=== PATIENT | male | born 1985 | race Hispanic/Latino ===

== ENCOUNTER 2019-04-25 12:42 | Emergency (ER) | payer MEDICAID, SELFPAY ==
[2019-04-25 12:43] VITALS: BP 129/95; PULSE 105; RESP 19; TEMP 36.9; O2SAT 99; BMI 32.8
--- NOTE | 2019-04-25 13:00 | ED.DCSUM_ITS ---
History of Present Illness Chief Complaint: General Illness Informant: Patient, Significant Other Onset: Yesterday Context: Sudden Onset Timing: Waxes and wanes Quality: Nausea, vomiting and diarrhea with upper abdominal pain and chest pain Location: Upper abdomen and chest Current Severity: Mild Maximum Severity: Moderate Worsened by: Vomiting and diarrhea Relieved by: Nothing Associated Symptoms: Multiple family members ill with diarrhea Narrative: Patient is a 33-year-old male brought to the emergency room room by his because of elevated blood pressure, elevated heart rate with decreased p.o. intake. He has not urinated today. He denies fever or chills. He denies headache. He does report dry mouth and thirst. Chest pain is central. There are no alleviating, exacerbating or precipitant factors. He did have nasal congestion last evening. He denies cough or shortness of breath. He denies hematemesis, no hematochezia. He denies mucus in the stool. He denies skin lesions. He complained of generalized weakness. Prior similar symptoms: No Recent Illness/Hospitalization: No - Past Medical History (1) History of brain tumor Status: Acute Past Medical History - Allergies and Home Meds Allergies/Adverse Reactions: Allergies No Known Allergies Allergy (Verified 04/25/19 12:42) Primary Care Physician: [facility] Doctor,Out of [NON-STAFF] - Prior records reviewed: Yes Surgical History: - - Craniotomy x2 Lives: Spouse/ Significant Other, With Family Smoking Status: Never smoker Alcohol: Occasional Drugs: None Review of Systems General: Reports: Chills, Malaise. Denies: Fever, Subjective, Sweats, Weight loss Eyes: Reports: - - Nystagmus since craniotomy. Denies: Visual changes - bilaterally, Blurred Vision - bilaterally, Diplopia ENT: Reports: Rhinorrhea. Denies: Bilateral ear pain, Sore throat Cardiovascular: Reports: Chest pain. Denies: Palpitations Respiratory: Denies: Dyspnea, Cough, Dyspnea on exertion Gastrointestinal: Reports: Abdominal pain, Nausea, Vomiting, Diarrhea. Denies: Constipation, Melena, Hematochezia Genitourinary: Denies: Dysuria, Hematuria, Frequency Musculoskeletal: Denies: Myalgias, Arthralgias, Neck pain, Back pain, Swelling, Extremity Pain, -, - Neurological: Reports: Weakness. Denies: Headache, Parasthesia, Numbness Hematologic: Denies: Easy bruising, Easy bleeding Allergy: Denies: Uticaria, Swelling of the mouth, Swelling of the tongue Physical Exam Vital Signs/Narrative: Vital Signs Temp Pulse Resp BP Pulse Ox 04/25/19 12:43 98.5 F 105 H 19 H 129/95 H 99 Inital Vital Signs reviewed: Yes General: Well nourished, Well developed, No Acute Distress Head: Normocephalic, Atraumatic Eyes: Perrl, EOMI, - - Positive nystagmus. Negative for: Pale conjunctiva, Scleral icterus ENT: Moist mucous membranes - She did just drink water prior to arrival., No rhinorrhea Neck: Supple, Nontender, No lymphadenopathy, No JVD Cardiovascular: Regular rhythm, No murmurs, Normal S1, Normal S2, Tachycardia Respiratory: No distress, CTA bilaterally, Chest nontender Abdomen: Soft, Normal bowel sounds, Tender. Negative for: Guarding, Rebound ten derness, Hyperactive bowel sounds, Hypoactive bowel sounds, Hepatomegaly, Splenomegaly, Mass Rectal: Deferred Back: Nontender, Normal Inspection. Negative for: CVA tenderness Extremities: Nontender, No edema Skin: Normal color, No rash Neurological: Alert, Oriented x3, Cranial nerves II-XII grossly intact, Normal Strength, Normal Sensation Psychological: Normal affect, Normal Mood Diagnostic/Tx/Re-eval Laboratory Results 04/25/19 04/25/19 13:30 13:30 WBC 8.3 RBC 5.34 Hgb 15.8 Hct 43.2 MCV 80.9 MCH 29.6 MCHC 36.6 H RDW 12.5 RDW Differential 36.7 Plt Count 220 MPV 10.4 Immature Gran % (Auto) 0.400 Neut % (Auto) 82.3 H Lymph % (Auto) 11.5 L [place] % (Auto) 5.0 Eos % (Auto) 0.4 Baso % (Auto) 0.4 Absolute Neuts (auto) 6.9 Absolute Lymphs (auto) 0.96 Total Counted Not Reportable Sodium 138 Potassium 3.5 Chloride 104 Carbon Dioxide 27.0 Anion Gap 7 BUN 12 Creatinine 0.92 Estim Creat Clear Calc 91.91 Est GFR (MDRD) Af Amer 121 Est GFR (MDRD) Non-Af 100 BUN/Creatinine Ratio 13.0 Glucose 121 H Calcium 8.9 - Medical Decision Making Patient has reproducible chest pain. He has epigastric discomfort as well. Suspect this is secondary to viral illness with vomiting diarrhea. Since he has not urinated the entire day IV was established he was given 1 L of normal saline wide open. Will obtain baseline blood work as well to assess electrolyte, renal function and H&H. Patient was reassessed at 1450. He sitting up smiling feels much better. Will discharge home with appropriate home-going instructions ED Disposition - Plan for ED Patient: Disposition: Home or Assisted Living Diagnosis: Abdominal pain, vomiting, and diarrhea, Mild dehydration Instructions: VOMITING AND DIARRHEA, Nonspecific (Adult) Referrals: [facility] Doctor,Out of [NON-STAFF] - As Needed
[2019-04-25] MEDS: 0.9% Normal Saline 1,000 ML 1000 ML IV (13:56)
[2019-04-25 14:11] LABS: Anion Gap 7 (5-15); BUN 12 mg/dL (7-18); Calcium,Total 8.9 mg/dL (8.5-10.1); Chloride 104 mmol/L (98-107); Creatinine, Serum 0.92 mg/dL (0.70-1.30); EST Glomerular Filtration Rate 100 mL/min (>60); Est Glom Filt Rate - Afr Amer 121 mL/min (>60); Estimated Creatinine Clearance 91.91 ml/min; Glucose 121 mg/dL (74-106); Potassium 3.5 mmol/L (3.5-5.1); Sodium Level 138 mmol/L (136-145)
[2019-04-25 14:24] LABS: Absolute Lymphocyte Count 0.96 X10^3/ul (0.83-4.51); Absolute Neutrophil Count 6.9 X10^3/uL (2.0-7.7); Basophil# 0.03 X10^3/uL; Basophil% 0.4 % (0-1); Eosinophil# 0.03 X10^3/uL; Eosinophils% 0.4 % (0-5); Hematocrit 43.2 % (40-54); Lymphocyte # 0.96 X10^3/ul (4.0); Lymphocyte % 11.5 % (19-41); Mean Corpuscular Volume 80.9 fL (80-94); Mean Platelet Vol. 10.4 fl (6.2-12.0); Monocyte# 0.42 X10^3/uL; Neutrophil # 6.85 X10^3/uL (2.7-7.7); Neutrophil % 82.3 % (47-70); POSITIVE COUNT NO; POSITIVE DIFFERENTIAL NO; POSITIVE MORPHOLOGY NO; Platelet Count 220 K/mm3 (150-450); RBC Distribution Width CV 12.5 % (11.6-14.6); RBC Distribution Width SD 36.7 fl (35.1-43.9); Red Blood Count 5.34 M/mm3 (4.6-6.2); White Blood Count 8.3 K/mm3 (4.4-11.0)
[2019-04-25 14:25] LABS: Hemoglobin 15.8 g/dl (13.0-16.5); Mean Corp Hgb Conc 36.6 g/gl (32-36); Mean Corpuscular Hgb 29.6 pg (27.0-32.0)
--- NOTE | 2019-04-25 15:12 | ED.RN ---
IV DC'ED, CATHETER INTACT, SMALL GAUZE DRESSING PLACED. DISCHARGE INSTRUCTIONS GIVEN TO AND REVIEWED WITH PATIENT, PATIENT DENIES QUESTIONS OR CONCERNS AND VOICES UNDERSTANDING OF DISCHARGE INSTRUCTIONS. PT AMBULATES OUT OF ROOM WITHOUT DIFFICULTY.
== END 2019-04-25 15:14 | disposition home or self-care (01) ==
PROVIDERS: Emergency Provider Emergency Medicine; Family Provider Internal Medicine; PCP Internal Medicine
DX: E86.0 Dehydration (principal); R19.7 Diarrhea, unspecified; R11.2 Nausea with vomiting, unspecified; R10.13 Epigastric pain
CPT/HCPCS: 80048; 85025; 96360; 99281; 99282; J7030; A4216

== ENCOUNTER 2023-11-13 16:42 | Emergency (ER) | payer MEDICAID, SELFPAY ==
[2023-11-13] VITALS (7 sets, daily range): BP systolic 142–186; BP diastolic 85–96; PULSE 115–141; RESP 16–25; TEMP 37–37.7; O2SAT 96–100; BMI 32.9
--- NOTE | 2023-11-13 17:11 | CT_ITS ---
EXAM: CT HEAD WITHOUT INTRAVENOUS CONTRAST CLINICAL INDICATION: headache S/P Craniotomy TECHNIQUE: Multiple axial images were obtained of the head without intravenous contrast. This CT exam was performed using one or more of the following dose reduction techniques: automated exposure control, adjustment of the mA and/or kV according to patient size, and/or use of iterative reconstruction technique. RADIATION DOSE: CTDIvol = 44.99 mGy, DLP = 796.11 mGy-cm COMPARISON: 2.4.15 FINDINGS: BRAIN AND EXTRA-AXIAL SPACES: See below. BONES/JOINTS: Right parietal occipital craniotomy. Underlying the area of the craniotomy, there is encephalomalacia consistent for postsurgical changes. No discrete lytic or blastic abnormalities. SINUSES: Unremarkable as visualized. Clear. MASTOID AIR CELLS: Unremarkable. Clear. ORBITS: Visualized globes, extraocular muscles, optic nerves and retrobulbar fat appear unremarkable. CT/Brain/Head without Contrast IMPRESSION: No acute findings in the head/brain. Electronically Signed: Mike Chan MD at 17:47 EST ,
--- NOTE | 2023-11-13 17:13 | EDS_ITS ---
HPI History of Present Illness Chief Complaint: Fever Informant: patient and spouse/S.O. Narrative Narrative: 38-year-old male presenting to the emergency room with headache and fever. 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 Currently seeing Dr. Louie at [facility]. He underwent craniotomy now postop day 19. He returned home October 27. He was having significant frontal occipital pain that was requiring oxycodone and eventually Flexeril. Family states around 06 November he was back to only taking Tylenol. Last night developed worsening headache as well as some mild diarrhea. Continued again today. states he had Tmax 102 at home. She last administered Tylenol approximately 1 hour before arrival. On the way to the hospital he stated that he began to feel better. However since coming into the hospital he is feeling nauseated. He notes wavy lines in his field of vision and believes he is hearing sounds to the side of him. He notes it does not bother his head or neck to move his head. He denies any light sensitivity. Family notes no rashes. No cough or rhinorrhea. states that he had had 1 prior seizure around the time of initial diagnosis since. [facility] Medical History (Updated 11/13/23 @ 17:[address] Ben Bright, ) Oligoastrocytoma Home Medications levetiracetam 1,000 mg tablet 1,000 mg PO Q12H 11/20/14 [History Last Taken 06/21/17] prednisone 10 mg tablet 10 mg PO UD #33 tabs 06/21/17 [Rx Last Taken Unknown] prednisone 20 mg tablet 60 mg (3 x 20 mg) PO DAILY ##15 06/21/17 [Rx Last Taken Unknown] Allergy/AdvReac Type Severity Reaction Status Date / Time No Known Allergies Allergy Verified 11/13/23 16:46 Surgical History (Updated 11/13/23 @ 17:01 by Dimple Mayer) H/O craniotomy Social History Smoking Status: Former smoker ROS ROS ED Constitutional Constitutional ED: Reports chills and fever(s); Denies weight loss Eyes Eyes: Reports change in vision and other Details: Visual disturbance reportedly in both eyes and vision lui ; Denies diplopia ENT ENT ED: Denies ear pain, rhinorrhea or sore throat Cardiovascular Cardiovascular: Denies chest pain, orthopnea, palpitations or racing heartbeat Respiratory/Chest Respiratory/Chest: Denies cough, dyspnea or orthopnea Gastrointestinal Gastrointestinal: Reports diarrhea and nausea; Denies abdominal pain or vomiting Genitourinary Genitourinary ED: Denies dysuria, hematuria or urinary frequency Musculoskeletal Musculoskeletal: Denies arthralgias, myalgias or neck pain Integumentary Denies abscess or rash Neurologic Neurologic: Reports headache(s); Denies paresthesias or weakness Psychiatric Psychiatric: Denies anxiety, depression, suicidal ideation or suicidal thoughts Endocrine Endocrinology: Denies polydipsia, polyphagia or polyuria Allergic/Immunologic Allergic/Immunologic ED: Denies mouth swelling, tongue swelling or urticaria EXAM Physical Exam Narrative Exam Narrative: Patient appears uncomfortable in the bed holding his head. Const Vital Signs: 11/13/23 16:46 11/13/23 16:57 11/13/23 16:57 Temperature 98.9 F 99.3 F H Temperature Source Temporal Oral Pulse Rate 134 H Respiratory Rate 24 H Respiratory Pattern Normal Blood Pressure 169/96 H Blood Pressure Mean 120 Pulse Ox 100 Oxygen Delivery Method Room Air Oxygen Flow Rate (L/min) Fraction of Inspired Oxygen (FIO2) 11/13/23 18:05 11/13/23 18:43 11/13/23 18:25 Temperature 98.6 F Temperature Source Core Pulse Rate 141 H 130 H 123 H Respiratory Rate 24 H 25 H 20 H Respiratory Pattern Normal Blood Pressure 164/95 H Blood Pressure Mean 118 Pulse Ox 98 96 99 Oxygen Delivery Method Non-Rebreather Mechanical Ventilator Oxygen Flow Rate (L/min) 15 Fraction of Inspired Oxygen (FIO2) 30 100 11/13/23 19:24 Temperature Temperature Source Pulse Rate 115 H Respiratory Rate 22 H Respiratory Pattern Blood Pressure 186/85 H Blood Pressure Mean 118 Pulse Ox 99 Oxygen Delivery Method Mechanical Ventilator Oxygen Flow Rate (L/min) Fraction of Inspired Oxygen (FIO2) 30 Positive well nourished and well developed General Appearance ED: well developed HEENT Reports normocephalic and moist mucous membranes HEENT Narrative: Healing right parietal craniotomy incision. I do not appreciate a rash or swelling. Eyes PERRL and EOMs intact bilaterally Neck no lymphadenopathy, supple and no JVD Neck Narrative: No meningeal signs Resp normal respiratory effort and clear to auscultation bilaterally Cardio regular rate, regular rhythm and no murmurs Rate: tachycardic GI normal to inspection, nondistended, normoactive bowel sounds and non-tender Palpation: soft Back/Spine no CVA tenderness and normal ROM Extremity normal to inspection General Extremety ED: Negative for edema General Extremity: Negative for edema Neuro oriented x3 and CN's II-XII intact bilaterally Sensorium / Orientation: alert Motor Exam: strength 5/5 throughout Psych mental status grossly normal Mood & Affect: Negative for depressed or tearful Skin no rashes or lesions noted and no wounds MDM MDM MDM Narrative Medical decision making narrative: Shortly after my history and physical the patient began to have discharge. He is seizure resolving the left side of his body. Head was turned to the left with tonic-clonic like movement, left arm with tonic-clonic movements patient said minimal left leg movements. Right side did not seem involved. This terminated on its own before Ativan was given. Total seizure length of about 3 minutes. I come to the patient down to CT where he began to seize again. He received an additional 2 mg of Ativan. He still had some partial complex seizures and I was able to speak with me a little bit. At the end of CT he had significant amount more of seizure. He received an additional 2 mg of Ativan. This totaled 5. He was still seizing but eventually the seizure activity started to break. Unfortunately after 5 mg of Ativan he was very somnolent began to have snoring respirations requiring supplemental oxygen. I spoke with the patient's and strongly recommended intubation especially in light that he will be a ground transfer to [place]. She is in agreement for the patient's safety. He underwent rapid sequence intubation using etomidate and vecuronium. Ralph scope showed passage of the endotracheal tube without any difficulty. There were equal breath sounds bilaterally. Unfortunately I did not feel confident that the balloon was inflating as I heard some gurgling with bagged respirat ions. I changed out the endotracheal tube and inflated the balloon and no further gurgling respirations were heard. It was to be secured at 24. My independent interpretation of the chest x-ray showed it to be near the leda. I do not appreciate infiltrative changes. I checked the tube and it was secured at 26 and had it pulled back to 24 again. He was placed on propofol drip. Later fentanyl was added for further sedation. He received antibiotics in the form of vancomycin and meropenem. A total of 1500 mg of Keppra was given. He received NM acetaminophen. During all of the above, I spoke with [facility] transfer center and with the patient's neurosurgeon Dr. Louie. He has been accepted there. RSV influenza and COVID swabs were negative. Blood and urine cultures were obtained. Labs are reviewed and are significant for a white count of 14.1. History & Record Review Discussion w/independent historian: Patient and Family Lab Data Attestation: I reviewed the patient's lab results. Labs: Laboratory Results - last 24 hr 11/13/23 11/13/23 11/13/23 17:25 18:10 20:17 WBC 14.1 H RBC 5.16 Hgb 15.7 Hct 45.5 MCV 88.2 MCH 30.4 MCHC 34.5 RDW Std Deviation 38.0 RDW Coeff of Elicia 11.8 Plt Count 315 MPV 9.7 Immature Gran % (Auto) 0.900 Neut % (Auto) 62.1 Lymph % (Auto) 24.1 [place] % (Auto) 10.1 H Eos % (Auto) 1.8 Baso % (Auto) 1.0 Absolute Neuts (auto) 8.8 H Absolute Lymphs (auto) 3.40 Nucleated RBC % 0 PT 11.8 INR 0.9 APTT 27.6 Sodium 138 Potassium 3.9 Chloride 105 Carbon Dioxide 28.0 Anion Gap 5 BUN 14 Creatinine 0.98 Estim Creat Clear Calc 108.89 Est GFR (MDRD) Af Amer 110 Est GFR (MDRD) Non-Af 91 BUN/Creatinine Ratio 14.3 Glucose 129 H Lactic Acid 1.9 Calcium 9.4 Total Bilirubin 0.70 Direct Bilirubin 0.16 AST 23 ALT 96 H Alkaline Phosphatase 90 Total Creatine Kinase 58 Total Protein 7.7 Albumin 4.2 Globulin 3.5 Triglycerides 341 H Lipase 57 Urine Color Yellow Urine Clarity Clear Urine pH 5.0 Ur Specific [place] 1.025 Urine Protein 15 H Urine Glucose (UA) Normal Urine Ketones Negative Urine Occult Blood Negative Urine Nitrite Negative Urine Bilirubin Negative Urine Urobilinogen Normal Ur Leukocyte Esterase Negative Urine RBC 0 SEEN Urine WBC 0 SEEN Ur Squamous Epith Cells 0-5 SEEN Urine Bacteria 0 SEEN Urine Mucus 0 SEEN POC Glucose 103 Radiography Diagnostic Testing: Clinical Impression(s) from Imaging Studies Brain CT 11/13/23 17:11 IMPRESSION: No acute findings in the head/brain. Electronically Signed: Mike Chan MD at 17:47 EST , Chest X-Ray 11/13/23 17:35 IMPRESSION: No radiographic evidence of acute cardiopulmonary disease. Electronically Signed: Mike Chan MD at 17:53 EST , Chest X-Ray 11/13/23 18:35 IMPRESSION: ET tube is 11 mm above the leda. It should be pulled back by 26 mm. Electronically Signed: Mike Chan MD at 18:50 EST , EKG Initial EKG: Attestation: I personally reviewed and interpreted this EKG as follows: Comments: Sinus tachycardia ventricular rate of 135 bpm. Management Discussion w/another healthcare provider: Seasonal Package Handler ([facility] (Dr Louie) [facility] Transfer line) and Radiologist Critical Care Time Critical Care Time: Yes Critical care time (excluding procedures): 30-74 minutes (65 min), Including time spent:, Discussing w/Patient &/or Family/Blood Donor Recruiter Supervisor, Discussing w/Consultants, Arranging Admission or Transfer and Performing Direct Patient Care at Bedside Discharge Plan Triage Chief Complaint: Fever ED Provider: Ben Bright Dx/Rx/DC Orders Prescriptions: No Action levetiracetam 1,000 MG tablet 1,000 mg PO Q12H prednisone 10 MG tablet 10 mg PO UD Qty: 33 0RF Rx Instructions: Take 4 tablets daily for 3 days, then 3 daily for 3 days, then 2 daily for 3 days, then 1 a day for 3 days then 1 QOD for 3 doses. prednisone 20 MG tablet 60 mg PO DAILY Qty: 15 0RF Primary Care Provider: Sonja Davenport Referrals: Sonja Davenport, [Primary Care Provider] -
--- OUTSIDE RECORDS SUMMARY | 2023-11-13 17:18 | XMS RPT_ITS | CCD ---
Author Name Unknown Address [address] [place] [address] Organization [facility] Care Team Providers Care Circular Head Saw Operator Name Role Phone Nithin Davenport Attending Unavailable Oberhauser, Nithin De Paz Admitting Unavailable Oberhauser, Nithin De Paz Primary Care Unavailable Oberhauser, Nithin De Paz Attending Unavailable Oberhauser, Nithin De Paz Primary Care Unavailable BitnerKiel Admitting Unavailable BitnerKiel Attending Unavailable OberhauserNithin Primary Care Unavailable BitKiel diaz Admitting Unavailable BitnerKiel Attending Unavailable Oberhauser, Nithin De Paz Primary Care Unavailable Liu Mao Admitting Unavailable MaoLiu Attending Unavailable Oberhauser, Nithin De Paz Primary Care Unavailable MaoLiu barron Attending Unavailable OberhauserNithin Primary Care Unavailable Liu Mao Admitting Unavailable Oberhauser, Nithin De Paz Admitting Unavailable Oberhauser, Nithin De Paz Attending Unavailable OberhauserNithin Primary Care Unavailable Liu Mao Admitting Unavailable MaoLiu barron Attending Unavailable OberhauserNithin Primary Care Unavailable Liu Mao Attending Unavailable OberhauserNithin Primary Care Unavailable Oberhauser DO Nithin Primary Care Provider Oberhausruddy CHAPA Nithin Primary Care Provider Cherie Santamaria MD Unavailable OberNithin bradley DO Primary Care Provider [phone] Cherie Santamaria MD Unavailable OberhausNithin fox DO Primary Care Provider [phone] Jaziel Urban MD Unavailable MUELLER, ELEANOR R Referring Unavailable MUELLERELEANOR DIAZ R Attending Unavailable OBERHAUSER, NITHIN Primary Care Unavailable MUELLERELEANOR DIAZ R Attending Unavailable OLIVIA, JOE B Referring Unavailable OBERHAUSER, NITHIN Primary Care Unavailable OBERHAUSER, NITHIN Primary Care Unavailable MUELLERELEANOR DIAZ R Attending Unavailable OLIVIA, JOE B Referring Unavailable OLIVIA, JOE B Attending Unavailable OBERHAUSER, NITHIN Primary Care Unavailable TERRELL, JAZIEL Referring Unavailable OLIVIA, JOE B Referring Unavailable OBERHAUSER, NITHIN Primary Care Unavailable CHERIE SANTAMARIA Attending Unavailable OBERHAUSER, NITHIN Referring Unavailable OBERHAUSER, NITHIN Primary Care Unavailable CHERIE SANTAMARIA Attending Unavailable CHERIE SANTAMARIA Admitting Unavailable CONSULT, NEURO CRITICAL CARE Consulting Jenna sukhdevilaIVIS Pizarro Referring Unavailable OBERHAUSER, NITHIN Primary Care Unavailable OBERHAUSER, NITIHN Primary Care Unavailable TERRELL, JAZIEL Referring Unavailable TERRELL, JAZIEL Attending Unavailable OBERHAUSER, NITHIN Primary Care Unavailable OBERHAUSER, NITHIN Referring Unavailable OBERHAUSER, NITHIN Primary Care Unavailable TERRELL, JAZIEL Referring Unavailable TERRELL, JAZIEL Attending Unavailable OBERHAUSER, NITHIN Primary Care Unavailable DIAZ, NITHIN S Attending Unavailable DIAZ, NITHIN S Referring Unavailable OBERHAUSER, NITHIN Primary Care Unavailable OBERHAUSER, NITHIN Referring Unavailable CHERIE SANTAMARIA Attending Unavailable OBERHAUSER, NITHIN Primary Care Unavailable DIAZ, NITHIN S Attending Unavailable DIAZ, NITHIN S Referring Unavailable OBERHAUSER, NITHIN Primary Care Unavailable OBERHAUSER, NITHIN Referring Unavailable TERRELL, JAZIEL Attending Unavailable OBERHAUSER, NITHIN Primary Care Unavailable TERRELL, JAZIEL Attending Unavailable OBERHAUSER, NITHIN Referring Unavailable OBERHAUSER, NITHIN Primary Care Unavailable CHERIE SANTAMARIA Attending Unavailable OBERHAUSER, NITHIN Referring Unavailable OBERHAUSER, NITHIN Primary Care Unavailable DIAZ, NITHIN S Referring Unavailable DIAZ, NITHIN S Attending Unavailable Medications Current Medications Medication Drug Class(es) Dates Sig (Normalized) Sig (Original) acetaminophen 325 mg oral tablet (2 sources) Start: 10-27-2023 take 2 tablets by mouth every four hours as needed Acetaminophen 325 MG tablet Take 2 tablets by mouth every 4 hours as needed for Mild Pain. 0 10/27/2023 Active Completed/Discontinued Medications Medication Drug Class(es) Dates Sig (Normalized) Sig (Original) ceFAZolin 2000 mg injection (1 source) Cephalosporin Antibacterial Start: 10-25-2023 End: 10-26-2023 take 2 g intravenously every eight hours 2 g, Intravenous, Administer over 30 Minutes, EVERY 8 HOURS NON-STANDARD, 3 doses, First dose on Tue10/25/23 at 1830, Last dose on Tue10/26/23 at 1030, Post-op/Post-Pro c Docusate (1 source) Start: 10-25-2023 End: 10-27-2023 Docusate (COLACE) capsule 100 mg 0.4 ml enoxaparin sodium 100 mg/ml prefilled syringe (1 source) Low Molecular Weight Heparin Start: 10-26-2023 End: 10-27-2023 inject 40 mg by subcutaneous injection every twenty-four hours 40 mg, Subcutaneous, EVERY 24 HOURS, First dose on Tue10/26/23 at 1200, Until Discontinued, Indications: DVT/PE prophylaxis, Post-op/Post-Pro c gadoterate Meglumine (DOTAREM) 5 MMOL/10ML injection 3-60 mL (2 sources) Start: 09-30-2022 End: 09-30-2022 gadoterate Meglumine (DOTAREM) 5 MMOL/10ML injection 3-60 mL Problems Active Problems Problem Classification Problem Date Documented Date Episodic/Chronic Cancer of brain and nervous system (19 sources) Mixed glioma ; 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, unspecified] Onset: 06-29-2016 Chronic Neoplasms of unspecified nature or uncertain behavior (3 sources) Neoplasm of brain; Translations: [Neoplasm of unspecified behavior of brain] Onset: 10-25-2023 10-25-2023 Chronic Other aftercare (2 sources) Postoperative visit; Translations: [Encounter for other specified surgical aftercare] Onset: 10-25-2023 10-25-2023 Episodic Other eye disorders (3 sources) Congenital nystagmus; 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] Onset: 10-13-2023 10-13-2023 Chronic Other eye disorders (1 source) Congenital nystagmus; 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] Onset: 12-28-2023 Chronic Other nervous system disorders (9 sources) Cerebral edema; Translations: [Cerebral edema] Onset: 09-01-2016 09-01-2016 Chronic Residual codes; unclassified (12 sources) History of craniotomy; Translations: [Other specified postprocedural states] Onset: 09-01-2016 09-01-2016 Episodic Residual codes; unclassified (2 sources) Other specified postprocedural states; Translations: [Other specified postprocedural states] Onset: 10-25-2023 Episodic Residual codes; unclassified (2 sources) Other specified health status; Translations: [Other specified health status] Onset: 10-21-2023 Episodic Past or Other Problems Problem Classification Problem Date Documented Da te Episodic/Chronic Epilepsy; convulsions (9 sources) Seizure; Translations: [Unspecified convulsions] Onset: 06-29-2016 06-29-2016 Episodic Mood disorders (5 sources) Mood disorders Onset: 03-31-2023 03-31-2023 Results Test Name Value Interpretation Reference Range Facil ity Vital Signs Date Time Vital Sign Value Performing Clinician Faci lity 10-27-2023 11:54-0500 Body temperature 97.2 [degF] Cherie Santamaria MD Work Phone: [facility] 10-27-2023 11:54-0500 Diastolic blood pressure 59 mm[Hg] Cherie Santamaria MD Work Phone: [facility] 10-27-2023 11:54-0500 Heart rate 72 /min Cherie Santamaria MD Work Phone: [facility] 10-27-2023 11:54-0500 Respiratory rate 16 /min Cherie Santamaria MD Work Phone: [facility] 10-27-2023 11:54-0500 SaO2% (BldA) [Mass fraction] 98 % Cherie Santamaria MD Work Phone: [facility] 10-27-2023 11:54-0500 Systolic blood pressure 124 mm[Hg] Cherie Santamaria MD Work Phone: [facility] 10-25-2023 11:36-0500 Body height 160 cm Cherie Santamaria MD Work Phone: [facility] 10-25-2023 11:36-0500 Body mass index (BMI) [Ratio] 35.46 kg/m2 Cherie Santamaria MD Work Phone: [facility] 10-25-2023 11:36-0500 Body weight 90.8 kg Cherie Santamaria MD Work Phone: [facility] 10-13-2023 14:09-0500 Body height 160 cm Eleanor Mueller DO Work Phone: [facility] 10-13-2023 14:09-0500 Body mass index (BMI) [Ratio] 35.78 kg/m2 Eleanor Mueller DO Work Phone: [facility] 10-13-2023 14:09-0500 Body temperature 97.3 [degF] Eleanor Mueller DO Work Phone: [facility] 10-13-2023 14:09-0500 Body weight 91.63 kg Eleanor Mueller DO Work Phone: [facility] 10-13-2023 14:09-0500 Diastolic blood pressure 78 mm[Hg] Eleanor Mueller DO Work Phone: [facility] 10-13-2023 14:09-0500 Heart rate 75 /min Eleanor Mueller DO Work Phone: [facility] 10-13-2023 14:09-0500 Respiratory rate 16 /min Eleanor Mueller DO Work Phone: [facility] 10-13-2023 14:09-0500 SaO2% (BldA) [Mass fraction] 98 % Eleanor Mueller DO Work Phone: [facility] 10-13-2023 14:09-0500 Systolic blood pressure 120 mm[Hg] Eleanor Mueller DO Work Phone: [facility] 03-31-2023 09:45-0400 Body mass index (BMI) [Ratio] 33.88 kg/m2 Cherie Santamaria MD Work Phone: [facility] 03-31-2023 09:45-0400 Body temperature 97.59 [degF] Cherie Santamaria MD Work Phone: [facility] 03-31-2023 09:45-0400 Body weight 89.54 kg Cherie Santamaria MD Work Phone: [facility] 03-31-2023 09:45-0400 Diastolic blood pressure 75 mm[Hg] Cherie Santamaria MD Work Phone: [facility] 03-31-2023 09:45-0400 Heart rate 68 /min Cherie Santamaria MD Work Phone: [facility] 03-31-2023 09:45-0400 Respiratory rate 16 /min Cherie Santamaria MD Work Phone: [facility] 03-31-2023 09:45-0400 SaO2% (BldA) [Mass fraction] 98 % Cherie Santamaria MD Work Phone: [facility] 03-31-2023 09:45-0400 Systolic blood pressure 114 mm[Hg] Cherie Santamaria MD Work Phone: [facility] 09-30-2022 13:07-0500 Body height 160 cm Jaziel Urban MD Work Phone: [facility] 09-30-2022 13:07-0500 Body mass index (BMI) [Ratio] 34.2 kg/m2 Jaziel Urban MD Work Phone: [facility] 09-30-2022 13:07-0500 Body temperature 98.49 [degF] Jaziel Urban MD Work Phone: [facility] 09-30-2022 13:07-0500 Body weight 87.54 kg Jaziel Urban MD Work Phone: [facility] 09-30-2022 13:07-0500 Diastolic blood pressure 81 mm[Hg] Jaziel Urban MD Work Phone: [facility] 09-30-2022 13:07-0500 Heart rate 79 /min Jaziel Urban MD Work Phone: [facility] 09-30-2022 13:07-0500 Respiratory rate 16 /min Jaziel Urban MD Work Phone: [facility] 09-30-2022 13:07-0500 SaO2% (BldA) [Mass fraction] 97 % Jaziel Urban MD Work Phone: [facility] 09-30-2022 13:07-0500 Systolic blood pressure 135 mm[Hg] Jaziel Urban MD Work Phone: [facility] 09-30-2022 11:48-0500 Body height 160 cm Jaziel Urban MD Work Phone: [facility] 09-30-2022 11:48-0500 Diastolic blood pressure 85 mm[Hg] Jaziel Urban MD Work Phone: [facility] 09-30-2022 11:48-0500 Heart rate 98 /min Jaziel Urban MD Work Phone: [facility] 09-30-2022 11:48-0500 Systolic blood pressure 150 mm[Hg] Jaziel Urban MD Work Phone: [facility] 01-07-2022 12:31-0400 Body height 162.6 cm Jaziel Urban MD Work Phone: [facility] 01-07-2022 12:31-0400 Diastolic blood pressure 87 mm[Hg] Jaziel Urban MD Work Phone: [facility] 01-07-2022 12:31-0400 Systolic blood pressure 125 mm[Hg] Jaziel Urban MD Work Phone: [facility] Encounters Encounter Date Encounter Type Care Provider Facility Start: 10-25-2023 End: 10-27-2023 Evaluation and management of inpatient NITHIN DAVENPORT Facility:[facility] Start: 10-25-2023 End: 10-27-2023 Evaluation and management of inpatient Cherie Santamaria MD Work Phone: [id number] Procedures Date Procedure Procedure Detail Performing Clinician Start: 10-27-2023 Assay of magnesium Nase rin M Nitin PLUMBER GASFITTER-METER SUPERVISOR Work Phone: Start: 10-26-2023 Assay of magnesium Nase rin M Nitin PLUMBER GASFITTER-METER SUPERVISOR Work Phone: Start: 10-25-2023 Glucose measurement, blood Cherie Santamaria MD Work Phone: Start: 10-25-2023 Mri brain open intra cranial px w/o contrast matl Cherie Santamaria MD Work Phone: Start: 10-25-2023 CONTINUOUS CARDIAC M ONITORING STRIP Other Other Start: 10-25-2023 Ct head/brain w/o co ntrast material Tan Booker MD Work Phone: Start: 10-25-2023 Glucose measurement, blood Cherie Santamaria MD Work Phone: Start: 10-25-2023 US Unspecified body region Cherie Santamaria MD Work Phone: Start: 10-25-2023 CONTINUOUS CARDIAC M ONITORING STRIP Other Other Start: 10-25-2023 End: 10-25-2023 Craniotomy excision craniopharyngioma Cherie Santamaria MD Work Phone: Start: 10-25-2023 End: 10-25-2023 Ionm 1 on 1 in or w/attendance each 15 minutes Cherie Santamaria MD Work Phone: Start: 10-25-2023 End: 01-09-2024 Mri brain open intracranial px w/o & w/contrast Cherie Santamaria MD Work Phone: Start: 10-25-2023 Blood typing serologic abo Kelvin Davis MD Work Phone: Start: 10-13-2023 Antibody screen Eleanor Mueller DO Work Phone: Start: 10-13-2023 Antibody screen ELEANOR MUELLER Plan of Treatment Date Care Activity Detail Author Start: 11-17-2023 End: 11-17-2023 Patient encounter procedure Division of [facility] at [facility] Start: 11-08-2023 End: 11-08-2023 Patient encounter procedure 11/08/2023 11:00 AM EST Office Visit Department of Radiation Oncology [address] [place] [address] Baldomero Vieira MD, DPhil [address] [place] [address] Department of Radiation Oncology Start: 10-25-2023 End: 10-25-2023 Craniotomy excision craniopharyngioma EXCISION BRAIN TUMOR BY CRANIOTOMY Brain tumor 10/25/2023 7:00 AM EST [facility] Start: 10-25-2023 End: 10-25-2023 Evaluation and management of inpatient [facility] PERIOP Payers Date Payer Category Payer Medicaid [id number] 2022 Medicaid [id number] 2018 Private Health Insurance 1985 Unknown [id number] 2.16. 840.1.462927.3.579.2.356 1985 Unknown [id number] 2.16. 840.1.392843.3.579.2.356 1985 Unknown [id number] 2.16. 840.1.986523.3.579.2.356 1985 Unknown [id number] 2.16.84 0.1.683608.3.579.2.7 1985 Unknown [id number] 2.16.84 0.1.692417.3.579.2. 1985 Unknown [id number] 2.16.84 0.1.155794.3.579.2. 1985 Unknown [id number] 2.16.84 0.1.499695.3.579.2. 1985 Unknown [id number] 2.16.84 0.1.323222.3.579.2. 1985 Unknown [id number] 2.16.84 0.1.755727.3.579.2. 1985 Unknown [id number] 2.16.84 0.1.453499.3.579.2. 1985 Unknown [id number] 2.16.84 0.1.920751.3.579.2. 1985 Unknown [id number] 2.16.84 0.1.390179.3.579.2. 1985 Unknown [id number] 2.16. 840.1.595533.3.579.2. 1985 Unknown [id number] 2.16. 840.1.377581.3.579.2.594 1985 Unknown [id number] 2.16. 840.1.835707.3.579.2.594 1985 Unknown [id number] 2.16. 840.1.759357.3.579.2.594 1985 Unknown [id number] 2.16. 840.1.998876.3.579.2.594 1985 Unknown [id number] 2.16. 840.1.934588.3.579.2.594 1985 Unknown [id number] 2.16. 840.1.640409.3.579.2.594 1985 Unknown [id number] 2.16. 840.1.249245.3.579.2.594 1985 Unknown [id number] 2.16. 840.1.568829.3.579.2.594 1985 Unknown [id number] 2.16. 840.1.275807.3.579.2.594 1985 Unknown [id number] 2.16. 840.1.898317.3.579.2.594 1985 Unknown [id number] 2.16. 840.1.834257.3.579.2.594 1985 Unknown [id number] 2.16. 840.1.167519.3.579.2.594 1985 Unknown [id number] 2.16. 840.1.217821.3.579.2.594 1985 Unknown [id number] 2.16. 840.1.297960.3.579.2.594 1985 Unknown [id number] 2.16. 840.1.760566.3.579.2.594 1985 Unknown [id number] 2.16. 840.1.195998.3.579.2.594 Private Health Insurance [id number] Social History Date Type Detail Facility Start: 06-29-2016 Tobacco smoking stat [facility] Never smoked tobacco [facility] Start: 06-29-2016 Tobacco use and exposure Smokeless tobacco non-user [facility] Start: 01-07-2022 End: 10-26-2023 Alcohol intake Current drinker of alcohol (finding) [facility] Start: 06-29-2016 History SDOH Alcohol Comment Social Drinker [facility] Start: 1985 Sex Assigned At Not on file [facility] Start: 12-28-2021 End: 01-07-2022 Exposure to SARS-CoV-2 (event) Not sure [facility] Start: 09-20-2022 End: 09-30-2022 Exposure to SARS-CoV-2 (event) Unable to assess [facility] Start: 03-27-2023 End: 03-31-2023 History of Social function [facility] Start: 03-27-2023 End: 03-31-2023 Tobacco use panel [facility] Gender identity Identifies as millicent portillo gender (finding) [facility] Adolescent depressio n screening assessment 0 [facility] Has the electric, ga s, oil, or water company threatened to shut off services in your home in past 12Mo No [facility] (I/We) worried wheth er (my/our) food would run out before (I/we) got money to buy more. Never true [facility] Medical Equipment Procedure Code Equipment Code Equipment Origin al Text Equipment Identifier Dates Graft Duragen Pl us 2 X 2 - [id number] Start: 09-01-2016 Matrix Tissue 2x 2in Duragen Plus Dural Bovine Collagen Patch - [id number] Start: 10-25-2023 Clinical Notes 09-30-2022 to 10-27-2023 Nursing Notes - Iris Cheatham RN - 10/27/2023 4:51 PM ESTNursing Notes - Iris Cheatham RN - 10/27/2023 4:51 PM ESTNursing Notes - Erika Barron RN - 10/27/2023 11:37 AM ESTMedications Note Date & Type Note Facility 10-27-2023 Nurse Note Patient's IV's removed per policy and protocol. Printed copy of AVS was given to patient and discussed. All questions answered. Pt pushed off of unit by family in wheelchair. Iris GARCIA, RN-BC, CWON [facility] 10-27-2023 Miscellaneous Notes Patient's IV's removed per policy and protocol. Printed copy of AVS was given to patient and discussed. All questions answered. Pt pushed off of unit by family in wheelchair. Iris GARCIA, RN-BC, CWON Summary: PCRM Final Discharge Note 10/27/23 8311 Plan Plan Patient anticipated to discharge to home today. See final note. Patient/Family In Agreement With Plan yes Final Discharge Planning Discharge Disposition Home CM/SW AVS Portion Completed Yes Community Agency Name(s) For Handoff [facility] Name For Handoff Dr. Santamaria Phone For Handoff Fax For Handoff [facility] Inpatient PCRM Discharge Note Patient discussed in medical rounds for discharge to home this afternoon. PCRM met with the patient/spouse to discuss final discharge plan. Services for Discharge No needs identified. Consults with Final Discharge Recommendations 1.) Neuro-critical ICU--Transferred out. 2.) PT--Home, no DME recommended. 3.) OT--Home with outpatient services, no DME recommended. Initial assist from spouse as needed. Patient/spouse declined need for any additional outpatient services. Lines/Tubes/Drains/Wounds/Supplies PIV to be removed prior to discharge. Wound care added to AVS. Medications No barriers anticipated in obtaining discharge medications. No prior authorizations anticipated. Reconciliation of medications to be completed by the medical team. Dr. Durham aware patient will need script for oxycodone. Bedside RN notified to provide Zofran prior to discharge as patient gets carsick. Durable Medical Equipment No needs identified. Patient/spouse previously inquired about a hospital bed, and are now declining need. Patient did stairs today per patient/family. Choice Was Patient Choice Provided: N/A Transportation Transportation will be provided by family (patient's brother). Education Discharge education provided by the medical team and updated in the After Visit Summary. Follow Up(s) Any follow up requested by the medical team arranged. Appointments in the After Visit Summary. 11/08/2023 11:00 AM Baldomero Vieira; [facility] Department of Radiation Oncology Arrive at: Arrive to Ground Floor Registration [facility] 11/17/2023 11:00 AM Joe Capone Division of Neuro Surgery at [facility] 11/17/2023 3:30 PM aJziel Urban Division of Neuro Oncology at [facility] Was Ambulatory PCRM added to the Care Team? No- No outpatient PCRM for this physician Was a handoff made to an Ambulatory PCRM? No. The PCRM has updated the patient's nurse Iris regarding the final discharge plan. Risk of Readmission: 2.1 Category Reference: Low: 0% - 5% Medium - Low: 5.1% - 10% Medium - High: 10.1% - 16% High: 16.1% - 100% Readmission Risk Interventions Documented: Yes No other discharge needs have been identified at this time. This plan was developed in collaboration with the patient and caregiver/preferred decision maker. Patient and family are in agreement with final discharge plan. Please refer to AVS and medical record for additional information. Patient instructed to call with questions. PCRM will continue to follow with medical team for any additional discharge planning needs. Erika GARCIA RN, PCRM Phone #: [phone] If any changes to this individualized plan of care during evening and weekend hours and assistance is needed, please page the component design engineer PCRM at [phone]. Problem: OT - Dressing Goal: Lower Body Dressing - Patient will complete lower body dressing tasks with modified independence using adaptive equipment/compensatory strategies as needed for improved ability to complete self-care activities. Outcome: Ongoing Problem: OT - ADLs Goal: Toileting - Patient will complete toileting task with modified independence and adaptive equipment as needed for improved ability to safely complete self-care activities. Outcome: Ongoing Goal: Bathing - Patient will perform full body bathing routine with modified independence while standing for improved ability to complete self-care activities Outcome: Ongoing Problem: OT - Balance Goal: Balance - Standing - Patient will perform 10 minutes of functional task in standing with modified independence and good balance to promote safety and improved balance required for self-care activities. Outcome: Ongoing Problem: OT - Endurance Goal: Endurance Functional Mobility - Patient will complete distance needed for limited community mobility with no rest breaks for improved tolerance to safely complete I/ADL's Outcome: Ongoing Problem: OT - Transfers Goal: Transfers Supine -> Sit - Patient will perform supine to/from sit with flat bed & no rail and independence to improve participation in ADLs. Outcome: Ongoing Problem: OT - Strength/ROM Goal: Strength/ROM ADL Participation - Patient will participate in UE exercise program with independence to prevent deconditioning while in hospital and to max UE ROM/Coordination/strength for ADLs. Outcome: Ongoing Problem: PT - Balance/Coordination/Neuro Re-Education Goal: Standing Balance Description: Patient will score >45/56 on Youngblood balance scale to indicate low fall risk. Outcome: Ongoing Problem: PT - Mobility Goal: Ambulation - Patient will ambulate 500 feet with independence and without an assistive device to improve ability to safely navigate home and community. Outcome: Ongoing Goal: Stairs - Patient will ascend/descend 12 stairs with modified independence, without an assistive device, and single railing(s) to improve ability to safely navigate home and community. Outcome: Ongoing Problem: Patient Care Overview Goal: Plan of Care Review Outcome: Ongoing Goal: Individualization & Mutuality Outcome: Ongoing Paulina, Rm 2111; Pt's pain is not being controlled with the oxycodone. Pt also hallucinates when he takes it. Can we try a different pain medication to try to help relieve his pain? VIANEY Bolanos [phone] 10/26/23 1029 Referral Information Arrived From operating room Readmission Information Was patient readmitted within 30 Days? No Information Source Information Source patient ;review of medical record;spouse (pt just had pain med, resting) Information Source Name Umm Gallardo Information Source Number [phone] Outpatient Providers Outpatient Providers Updated In IHIS Yes Contact Information [employer] Consultant/SW Added to Care Team Yes This Media/Instructional Designer is Primary [employer] Consultant/SW No [employer] Consultant Name Imani Lima RN for Sena Rothman RN, PCRM [employer] Consultant's - [phone] Social Work Contact Name BEBE Whitaker Automotive Sales Specialist's Living Environment Lives With Spouse and 4 dependent children Living Arrangements house (Two story with 2 INDRA) Provides Primary Care For no one Primary Care Provided By self Support System Immediate family Able to Return to Prior Arrangements yes Functional Status Patient's Functional Status Prior To This Admission? Independent Are There Status Changes This Admission? Yes Changes Observed Since Admission? Physical Concerns With Patient Being Able To Care For Themselves At Discharge? Has Assistance (Friend, Family, Skilled Provider) Who Is Patient's Primary Contact For Discharge Planning, Education And Care For Discharge? Self/spouse Can Support Person Meet The Care Needs Of The Patient? Yes Employment/Financial Employed? 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 [employer] Employment/Financial Concerns no Source Of Income salary/wages Financial Concerns none Insurance Medical Insurance Verified Yes Prescription Coverage Yes Pharmacy updated in [facility] Yes Initial Discharge Planning Home Care Services (HIDE SALTER) No Home Therapies (HIDE SALTER) None DME (HIDE SALTER) None Medical Supplies (HIDE SALTER) None Patient Goal for Discharge Return home with assistance from family and friends Anticipated discharge disposition Home Anticipated Services at Discharge Outpatient clinical services (ie: lab draws, transfusions, injectables) Anticipated Changes Related to Illness none Current Discharge Risk high risk diagnoses (i.e., CHF, Stroke, DM, chronic pain, abdominal pain, nausea and vomiting) Transportation Available car;family or friend will provide Discharge Planning Comments May want hospital bed at discharge Home Care Services (HIDE SALTER) Additional Home Care Services (HIDE SALTER) no Assessment/Concerns to be Addressed Concerns To Be Addressed care coordination/care conferences;adjustment to diagnosis/illness concerns;coping/stress concerns PCRM Initial Assessment Met with/Spoke with patient to complete the initial assessment. Explained role and function of PCRM in multidisciplinary team. Contact number provided for questions. Demographic information reviewed with patient/family and confirmed as correct. Reason for Admission: 37 y.o. man w/ h/o Seizures, Congenital nystagmus, recurrent right parietal oligoastrocytoma (gross total resection [facility] 09/29 and repeat resection [facility] 09/01). Admitted for s/p resection of brain tumor, disease progression. Excision brain tumor by craniotomy, right on 10/25. Estimated length of stay: 2-3 days Advanced directives Patient does not have Advanced Directives on File Lines/Drains/Tubes None, HIDE SALTER Initial PCRM Discharge Planning Plan for discharge to home, when medically stable. Final plan will be determined closer to discharge, pending therapy and medical team recommendations. Patient/family verbalized understanding and agreement with the plan of care. Patient/family have no questions at this time. PCRM will continue to follow patient with multidisciplinary team for ongoing assessment of needs and for discharge planning. Medical team updated. Imani Rothman RN, PCR [phone] For evening and weekend discharge assistance please page the component design engineer PCRM at [phone]. Rony Durham in regards to family's request for PT/OT consult. 10/26/23 1413 Referral Information Arrived From operating room Final Discharge Planning Discharge Disposition Home CM/SW AVS Portion Completed Yes Additional Community Agency Name(s) no Plan Plan Patient plans to discharge home with family support when medically stable, family to provide transport Patient/Family In Agreement With Plan yes Transport Request Mode of Transfer [facility] Discharge Note Patient discussed in medical rounds for discharge to home when medically stable. Per medical team, patient has no needs at time of discharge Services for Discharge Denies need for services at time of discharge Consults with Final Discharge Recommendations No consults at this time Lines/Tubes/Drains/Wounds/Supplies PIV x 2- to be removed prior to discharge R head surgical incsion Medications No barriers anticipated in obtaining discharge medications. No prior authorizations anticipated. Reconciliation of medications to be completed by the medical team. Durable Medical Equipment None- no needs per medical team Choice Was Patient Choice Provided: N/A Transportation Transportation will be provided by family member. Education Discharge education provided by the medical team and updated in the After Visit Summary. Follow Up(s) Any follow up requested by the medical team arranged. Appointments in the After Visit Summary. Future Appointments Provider Department Center 11/08/2023 11:00 AM Baldomero Vieira; [facility] Department of Radiation Oncology Arrive at: Arrive to Ground Floor Registration CCCT 11/17/2023 11:00 AM Joe Capone Division of Neuro Surgery at [facility] 11/17/2023 3:30 PM Jaziel Urban Division of Neuro Oncology at [facility] Was Ambulatory PCRM added to the Care Team? No- No outpatient PCRM for this physician The team has updated the patient's nurse regarding the final discharge plan. Risk of Readmission: 2.3 Category Reference: Low: 0% - 5% Medium - Low: 5.1% - 10% Medium - High: 10.1% - 16% High: 16.1% - 100% Readmission Risk Interventions Documented: Yes No other discharge needs have been identified at this time. This plan was developed in collaboration with the patient and caregiver/preferred decision maker. Patient and family are in agreement with final discharge plan. Please refer to AVS and medical record for additional information. Patient instructed to call with questions. PCRM will continue to follow with medical team for any additional discharge planning needs. Vivien GARCIA, RN, CLNC, PCRM [phone] If any changes to this individualized plan of care during evening and weekend hours and assistance is needed, please page the component design engineer PCRM at [phone]. Ricardo Mota Paulina ([id number]) PRE OPERATIVE DIAGNOSIS Brain tumor [D49.6] POST OPERATIVE DIAGNOSIS Brain tumor [D49.6] PROCEDURE PERFORMED Procedure(s) (LRB): EXCISION BRAIN TUMOR BY CRANIOTOMY (Right) EVALUATION MRI BRAIN INTRAOPERATIVE (Bilateral) MONITORING NEUROPHYSIOLOGY INTRAOPERATIVE ADD-ON PX (Bilateral) COMPLICATIONS None INTRAOPERATIVE FINDINGS No significant abnormalities SURGEON Surgeon(s) and Role: * Cherie Santamaria MD - Primary ANESTHESIOLOGIST Anesthesiologist: Nara Cardoza MD Industrial Retrofit Designer Assisting: Tayler Naidu DO SURGICAL STAFF Candy Wrapping Machine Operator: Janet Bowers RN Relief Candy Wrapping Machine Operator: Casimiro Mayo RN Relief Scrub: Kayden Zarate Resident Assisting: Steve Ratliff MD, PhD Fellow: Tan Booker MD Transport Engineer: Anjum Bonilla ESTIMATED BLOOD LOSS 30 ml SPECIMENS Cytology specimen sent ID Type Source Tests Collected by Time Destination 1 : Right parietal brain tumor Frozen SURG PATH SURG PATH REQUEST Cherie Santamaria MD 10/25/2023 0845 2 : Right parietal tumor #1 Permanent SURG PATH SURG PATH REQUEST Cherie Santamaria MD 10/25/2023 0856 3 : Right parietal tumor #2 Frozen SURG PATH SURG PATH REQUEST Cherie Santamaria MD 10/25/2023 0900 4 : Right parietal tumor #2 Permanent SURG PATH SURG PATH REQUEST Cherie Santamaria MD 10/25/2023 0957 Tan Booker MD October 25, 2023 10:53 AM OPERATIVE REPORT PATIENT: Ricardo Gallardo DATE: 10/25/2023 ATTENDING SURGEON: Jonnathan Santamaria MD FELLOW SURGEON: Tan Booker MD RESIDENT SURGEON: Gaudencio Wilson MD PROCEDURES PERFORMED: 1. Right parietal craniotomy for resection of brain lesion. 2. Use of intraoperative neuronavigation. 3. Use of and interpretation of intraoperative ultrasound. 4. Use of and interpretation of intraoperative neuromonitoring - subcortical mapping/stimulation 5. Use and interpretation of intraoperative MRI PREOPERATIVE DIAGNOSIS: right parietal brain lesion. POSTPROCEDURE DIAGNOSIS: right parietal brain lesion. ANESTHESIA: General endotracheal anesthesia. ESTIMATED BLOOD LOSS: 30 cc. INDICATIONS: Ricardo Gallardo is a 37 y.o. 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 He has been following up with the oncology department and his most recent brain MRI demonstrated a right parietal lesion (hyperintense on T2WI with no contrast enhancement) concerning for recurrent glioma. Given the presence of the lesion and the good KPS presented by the patient we recommended resection for tissue diagnosis and treatment. The patient was counseled regarding risks and benefits of surgery for removal; the risks including bleeding, infection, need for reoperation, pain, unable to perform procedure, unable to remove all the lesion, no improvement of preoperative symptoms or worsening of preoperative symptoms, new neurologic deficits including but not limited to weakness, paralysis, numbness, aphasia or speech deficit, cognitive dysfunction, memory disturbance, cerebrospinal fluid leak, stroke, heart attack, risks of general anesthesia and . The patient verbalized understanding and signed the consent for the procedure. DETAILS OF THE OPERATION: The patient was brought to the operating room. Anesthesia proceeded to intubate the patient and obtain the necessary vascular access. The patient was placed in a Nicole MRI compatible head clamp at 60 pounds of pressure and placed in the supine position. The head was turned to the left to maximize our approach and then the clamp was locked to the bed. The neuronavigation system was attached to the head clamp. The patient's facial landmarks were used to register with the system. Neuronavigation had been used to map out the most appropriate location for the incision. Neuromonitoring needles were placed and baselines were established. The incision was then redrawn with a marking pen. This was a curvilinear incision over the previous scar but also extended superiorly. Area was shaved, prepped and draped in the standard sterile fashion. After performing a time-out, the skin incision was made with a #10-blade scalpel through the skin, subcutaneous fat and galea. Alma clips were applied to the skin edges. The skin flap was then dissected away from the underlying skull using the periosteal dissector. The most superior and posterior portion of the previous craniotomy was exposed. With a M8 drill tip we performed a bur hole. A #3 [place] was used to dissect dura away from inner table of the bone. Craniotome was used to generate a new craniotomy. Flap was dissected away from the underlying dura and passed off for use later in the case. The C1 was used to place tangential holes at the edges of the skull and then dural tack-up stitches were placed using 4-0 Surgilon sutures. The ultrasound was brought into the field and used to verify that the lesion was deep to the exposed dura. At this point the wound was copiously irrigated and we washed away bone debris. The dura was opened in a curvilinear fashion using a 15-blade scalpel, with the pedicle facing posteriorly. The dural leaflet was reflected posteriorly. The navigation probe verified that we were indeed above the tumor as planned and that we were able to completely excise it with our exposure. The ultrasound was used to obtain baseline images of the tumor and confirm that our planned approach would be adequate for resection. We identified the tumor facing the cavity of the previous resection. At this point, blunt dissection through the borders of the tumor was performed, respecting the sulcus anteriorly and posteriorly to the tumor. The [place] instruments and suction instruments as well as the bipolar were used to bluntly dissect the lesion away from the surrounding brain. We used cotton patties to keep our plane established circumferentially. We reached the deep portion of the tumor. Tumor was sent to pathology for permanent analysis, and a sample was sent to frozen analysis which was compatible with recurrent glioma. We proceeded to evaluate the FLAIR hyperintense area deeper in the white matter. We used subcortical mapping in this region, with no responses at 10mA of stimulation. We resected a portion of this area and sent to pathology for permanent and frozen analysis. The frozen report was suggestive of reactive brain parenchyma with some atypical cells but not tumoral tissue. We felt confident that we had resected the tumor and that any further resection would increase the risk of postoperative deficits. We used all of the junction measures we had including the ultrasound as well as the neuro navigation to confirm that we felt that we had adequate resection. After we would confirmed, we approximated dura and the skin and covered the incision with Ioban to keep the surgical field sterile. The patient was transferred to the MRI room, where we performed a brain MRI that demonstrated resection of all the tumor. The patient was brought back to the OR. The surgical field was kept sterile and draped. We cut the sutures that were approximating the skin and dura and exposed the surgical cavity. Final inspection of the brain and resection cavity revealed no evidence of any residual lesion. The resection cavity was then copiously irrigated. The resection cavity was then lined with a monolayer of Surgicel. Careful hemostasis was verified and then attention was turned towards closure. The intracranial space was filled with irrigation. The dura was reapproximated using interrupted 4-0 Surgilon sutures. A 2x2 inches duragen was placed between the dura and the bone flap. The bone flap was then secured to the skull using the usual cranial plating system. The wound was then copiously irrigated. Alma clips were removed. The galea was reapproximated using interrupted inverted 2-0 Vicryl sutures. The skin was sutured with 3-0 Nylon. On the conclusion of the case, all surgical counts were correct x2. Surgical time-out was performed. Sterile drapes were removed and the incision was wiped dry and a dressing placed over the incision. The patient was removed from the Grajeda head clamp. Anesthesia was able to extubate the patient without difficulty. The patient was transported to the ICU in stable condition Associated attestation - Cherie Santamaria MD - 10/25/2023 1:48 PM EST I, Dr. Santamaria, was present and scrubbed for all critical portions of the procedure and Dr. Kiser was immediately available throughout. Update to plan of care / discharge plan. Patient is in surgery today. PCRM unable to complete initial assessment at this time. Discharge needs and disposition pending assessment postoperatively. PCRM will continue to follow patient with multidisciplinary team for ongoing assessment of needs and discharge planning. For evening and weekend discharge assistance please page the component design engineer PCRM at [phone]. Sena GARCIA, RN-, [facility] Patient Care Winding Inspector Pager: [phone] documented [facility] Nurse Note Summary: PCRM Aicha madhuri Discharge Note 10/27/23 1136 Plan Plan Patient anticipated to discharge to home today. See final note. Patient/Family In Agreement With Plan yes Final Discharge Planning Discharge Disposition Home CM/SW AVS Portion Completed Yes Community Agency Name(s) For Handoff [facility] Name For Handoff Dr. Santamaria Phone For Handoff Fax For Handoff [facility] PCRM Discharge Note Patient discussed in medical rounds for discharge to home this afternoon. PCRM met with the patient/spouse to discuss final discharge plan. Services for Discharge No needs identified. Consults with Final Discharge Recommendations 1.) Neuro-critical ICU--Transferred out. 2.) PT--Home, no DME recommended. 3.) OT--Home with outpatient services, no DME recommended. Initial assist from spouse as needed. Patient/spouse declined need for any additional outpatient services. Lines/Tubes/Drains/Wounds/Supplies PIV to be removed prior to discharge. Wound care added to AVS. Medications No barriers anticipated in obtaining discharge medications. No prior authorizations anticipated. Reconciliation of medications to be completed by the medical team. Dr. Durham aware patient will need script for oxycodone. Bedside RN notified to provide Zofran prior to discharge as patient gets carsick. Durable Medical Equipment No needs identified. Patient/spouse previously inquired about a hospital bed, and are now declining need. Patient did stairs today per patient/family. Choice Was Patient Choice Provided: N/A Transportation Transportation will be provided by family (patient's brother). Education Discharge education provided by the medical team and updated in the After Visit Summary. Follow Up(s) Any follow up requested by the medical team arranged. Appointments in the After Visit Summary. 11/08/2023 11:00 AM Baldomero Vieira; [facility] Department of Radiation Oncology Arrive at: Arrive to Ground Floor Registration CCCT 11/17/2023 11:00 AM Joe Capone Division of Neuro Surgery at [facility] 11/17/2023 3:30 PM Jaziel Urban Division of Neuro Oncology at [facility] Was Ambulatory PCRM added to the Care Team? No- No outpatient PCRM for this physician Was a handoff made to an Ambulatory PCRM? No. The PCRM has updated the patient's nurse Iris regarding the final discharge plan. Risk of Readmission: 2.1 Category Reference: Low: 0% - 5% Medium - Low: 5.1% - 10% Medium - High: 10.1% - 16% High: 16.1% - 100% Readmission Risk Interventions Documented: Yes No other discharge needs have been identified at this time. This plan was developed in collaboration with the patient and caregiver/preferred decision maker. Patient and family are in agreement with final discharge plan. Please refer to AVS and medical record for additional information. Patient instructed to call with questions. PCRM will continue to follow with medical team for any additional discharge planning needs. Erika GARCIA RN, PCRM Phone #: [phone] If any changes to this individualized plan of care during evening and weekend hours and assistance is needed, please page the component design engineer PCRM at [phone]. [facility] 10-27-2023 History of Present illness Narrative Subjective Advancing well, minor headache but otherwise no issue. Wants to go home, wants him to see pt/ot. Objective Temp: [98.2 F (36.8 C)-99.2 F (37.3 C)] 98.5 F (36.9 C) Pulse (Heart Rate): [63-89] 63 Resp Rate: [16-22] 18 BP: (104-128)/(55-66) 116/65 Arterial Line (1) BP: (98)/(80) 98/80 O2 Sat (%): [95 %-97 %] 95 % PHYSICAL EXAM -- AOx3 -- FCx4 -- PERRL, EOMI -- FS, TM -- MAEW, symmetric -- 5/5 strength in BUE/BLE -- Sensation to light touch intact in BLE/BUE -- dressing c/d/i WBC/Hgb/Hct/Plts: 10.47/13.0/36.8/233 (10/27 237) Na/K+/Phos/Mg/Ca: 137/3.6/3.5/2.0/-- (10/27 237) Bun/Creat/Cl/CO2/Glucose: 11/0.81/102/26/112 (10/27 237) Lab Results Component Value Date INR 1.0 10/26/2023 INR 0.9 10/13/2023 INR 1.0 09/01/2016 PT 12.9 10/26/2023 PT 12.5 10/13/2023 PT 13.5 09/01/2016 Intake/Output Summary (Last 24 hours) at 10/27/2023 0811 Last data filed at 10/27/2023 0409 Gross per 24 hour Intake 806.94 ml Output 4565 ml Net -3758.06 ml Medications dexAMETHasone 4 mg Oral BID Q8A/12P Followed by [START ON 10/31/2023] dexAMETHasone 4 mg Oral Daily Followed by [START ON 11/05/2023] dexAMETHasone 2 mg Oral Daily Docusate 100 mg Oral BID Or docusate 100 mg Oral BID enoxaparin 40 mg Subcutaneous Q24H faMOTIdine 20 mg Oral BID Or famotidine (PF) 20 mg Intravenous BID levETIRAcetam 1,000 mg Intravenous Q12H Or levETIRAcetam 1,000 mg Oral Q12H Or levETIRAcetam 1,000 mg Per NG tube Q12H Polyethylene glycol 17 g Oral QHS Senna 8.6 mg Oral Daily Assessment/Plan 37 y.o. male s/p R parietal craniotomy for LGG 10/25 1) Neuro -- Neuro stable -- post op imaging complete -- dex wean in -- oob tid, pt/ot per patient family request -- incision care, dressing to come off on discharge 2) CVS: VSS, afebrile 3) Respiratory: room air 4) FEN/GI: regular 5) ID: no acute issues 6) Prophy: SCDs, subq lovenox Dispo: home today v tomorrow William Ko MD Page [email or web address] internal audit manager for questions [phone] Acute Occupational Therapy Evaluation Prior to Admission AM-PAC Score: PRIOR LEVEL AM-PAC Activity Raw Score: 24 Current AM-PAC score(s): CURRENT AM-PAC Activity Raw Score: 18 Based on the above AM-PAC score(s) and OT clinical judgment, discharge destination recommendation is: Home with Outpatient Rehab Services (with initial assist from spouse for ADL/IADL as needed) Barriers to discharge home: Patient needs assistance with functional mobility, Patient needs assistance with ADLs, Patient needs assistance with IADLs (see note below) Mobility equipment available at home: none used ADL equipment available at home: Equipment recommendations for discharge: none Current therapy frequency recommendation(s) in acute: 5 times a week Activity Recommendations for outside of rehab session: 10/27: Up with 1 person assist and gait belt to bathroom for self care; ambulate 3x daily Precautions and Weightbearing Status: OT Existing Precautions/Restrictions: fall No critical lines at this time Patient Safety Communication Prior to Visit: Nursing Subjective: Pt agreeable to therapy; pt reports he has not been out of bed since surgery 2 days ago except to transfer beds Pain: General Pain Documentation (Adult, OB, Peds) Presence of Pain: complains of pain/discomfort Pain Location: headache DVPRS (Defense and Veterans Pain Rating Scale) DVPRS: Rest: 3- mild pain DVPRS: Activity: (not rated but reports feeling better following walk) Home Setting Residence: House Lives With: spouse, dependent child(leonard) First floor setup: bedroom, walk-in shower Second floor setup: bedroom, tub shower Number of stairs to enter home: 2 Number of stairs in home: 12 Mobility Equipment Available: none used Previous Level of Function Prior level ADL Overview: Independent with all ADLs IADL History IADLs: independent 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 [employer] Objective/Observation: Vitals/Vitals Responses to Treatment: WFL O2 Device: room air Vision Screen Currently wearing corrective lenses: No, Reading only Speech Speech: no gross deficits noted Successful Methods (Communication Strategies): verbal speech Hearing Hearing: no gross deficits noted Cognition Overall Cognitive Status: Within Functional Limits Arousal/Alertness: Appropriate responses to stimuli Orientation Level: Oriented X4 Following Commands: Follows all commands and directions without difficulty Safety Judgment: Good awareness of safety precautions Awareness of Errors: Good awareness of errors made Deficits: Fully aware of deficits Attention Span: Appears intact Memory: Appears intact Problem Solving: Able to problem solve independently ADLs: ADL Assessment: LE Dressing Deficit, Grooming Deficit ADL Anticipated Performance (ADLs not directly observed this session): Eating, Bathing, UE Dressing, Toileting Eating Assistance: Independent Grooming Assistance: Stand by Grooming Location: standing at sink Grooming Deficit: Retrieval of items, Oral care, Pain, Activity tolerance, Increased time to complete Grooming Skilled Rationale (Verbal/Tactile/Visual/Demonstrati on): Setup, Supervision Grooming Intervention/Details: Pt's spouse assists pt in opening packaging of toothbrush and toothpaste; pt completes oral hygiene standing at sink with good balance and supervision provided by spouse Bathing Assistance: Minimal UE Dressing Assistance: Minimal LE Dressing Assistance: Maximal LE Dressing Location: edge of bed LE Dressing Deficit: Don/doff R sock, Don/doff L sock, Pain LE Dressing Skilled Rationale (Verbal/Tactile/Visual/Demonstrati on): Setup, Supervision LE Dressing Intervention/Details: Pt's spouse assists pt to adjust bilat socks and states he's not allowed to bend his head forward Pt and spouse educated on figure 4 technique to avoid leaning forward and promote pt independence with LB dressing Toilet Assistance: Stand by Extremity Assessments: RUE Assessment RUE Assessment: Within Functional Limits Right UE Assessment Details: neck ROM limited due to pain; pt with guarded posture with head in neutral position throughourt LUE Assessment LUE Assessment: Within Functional Limits Balance: Sitting Balance Static Sitting-Level of Assistance: Supervision Dynamic Sitting-Level of Assistance: Standby Standing Balance Static Standing-Level of Assistance: Stand-by assist Dynamic Standing-Level of Assistance: Stand-by assist Standing-Balance Support: Gait belt, No upper extremity supported Skilled Rationale: Verbal cues, Full extension to upright positioning/posture, Upright gaze/neck extension, Cues for increased safety Neuro: Sensation Overall Sensation: Intact Sensation Comments: denies N/T Gross Coordination Gross Coordination: bilat UE intact Fine Motor Coordination Additional Documentation: (WFL) Skin and Edema: Mobility Assessment: Supine to Sit Mobility [place] Level: Supine->Sit: minimum assist (75% patient effort) Bed Features/Set-up: Supine->Sit: Head of bed elevated (hand held assist) Skilled Rationale: Verbal cues, Hand placement, Sequencing, Positioning, Technique of activity, Cues for increased safety Skilled Intervention/Details: Supine->Sit: increased time; pt with guarded posture with head in neutral/midline not turning to reach for bedrail; pt provided with hand held assist to upright trunk Transfer Assessment: Sit to Stand Transfer [place] Level: Sit->Stand: stand-by assist Assistive Device: Sit->Stand: gait belt Skilled Rationale: Verbal cues, Positioning, Full extension to upright positioning/posture, Upright gaze/neck extension, Cues for increased safety Skilled Intervention/Details: Sit->Stand: slow to rise Stand to Sit Transfer [place] Level: Stand->Sit: stand-by assist Assistive Device: Stand->Sit: gait belt, armed chair Skilled Rationale: Verbal cues, Controlled descent for sitting, Hand placement, Cues for increased safety Skilled Intervention/Details: Stand->Sit: good eccentric control Functional Mobility: Functional Mobility [place] Level: Functional Mobility/Gait: stand-by assist Assistive Device: Functional Mobility/Gait: gait belt Functional Mobility Distance: Distance needed for common household mobility Functional Mobility Deficits: Pain, Activity tolerance, Generalized weakness, Balance Functional Mobility Skilled Rationale: Verbal cues, Upright gaze/neck extension, Cues for increased safety Skilled Intervention/Details - Functional Mobility/Gait: Cues to turn head as pt with very guarded posture Wheelchair Assessment Patient currently uses wheelchair?: No CURRENT [facility] Daily Activity Inpatient Short Form Putting on/Taking Off Lower Body Clothin - A Lot of Assistance Bathin - A Little Assistance Toiletin - A Little Assistance Putting on/Taking Off Upper Body Clothin - A Little Assistance Groomin - A Little Assistance Eatin - No Assistance CURRENT AM-[facility] Activity Raw Score: 18 CURRENT -[facility] Activity Functional Limitation/Modifier: 46.65% Currently Impaired in Daily Activity - CK Assessment & Plan: Patient was admitted for Brain tumor [D49.6] Encounter for postoperative care [Z48.89] POD # 2 s/p Right parietal craniotomy for resection of brain lesion. Pt seen for therapy evaluation related to pain and deconditioning impacting ADL. Exam findings include impairments in: pain, ROM, pain with movement, balance, endurance, strength, transfers. These impairments contribute to occupational performance limitations including bathing, dressing, grooming, toileting, functional mobility, ADL transfers, work/school integration, driving/transportation. The following factors impact the plan of care: limited neck ROM/guarded posture Patient will benefit from skilled occupational therapy to address these impairments, occupational performance limitations, and participation restrictions. Patient's rehab potential is: good. Planned Therapy Interventions (OT Eval): ADL retraining, IADL retraining, balance training, ROM (range of motion), strengthening, transfer training Patient Instruction/Education this session: OT role, plan of care Plan for next session: progress LB ADL and neck ROM Acute OT Goals Plan of Care by Ayanna Figueroa OT at 10/27/2023 8:08 AM Version 1 of 1 Problem: OT - Dressing Goal: Lower Body Dressing - Patient will complete lower body dressing tasks with modified independence using adaptive equipment/compensatory strategies as needed for improved ability to complete self-care activities. Outcome: Ongoing Problem: OT - ADLs Goal: Toileting - Patient will complete toileting task with modified independence and adaptive equipment as needed for improved ability to safely complete self-care activities. Outcome: Ongoing Goal: Bathing - Patient will perform full body bathing routine with modified independence while standing for improved ability to complete self-care activities Outcome: Ongoing Problem: OT - Balance Goal: Balance - Standing - Patient will perform 10 minutes of functional task in standing with modified independence and good balance to promote safety and improved balance required for self-care activities. Outcome: Ongoing Problem: OT - Endurance Goal: Endurance Functional Mobility - Patient will complete distance needed for limited community mobility with no rest breaks for improved tolerance to safely complete I/ADL's Outcome: Ongoing Problem: OT - Transfers Goal: Transfers Supine -> Sit - Patient will perform supine to/from sit with flat bed & no rail and independence to improve participation in ADLs. Outcome: Ongoing Problem: OT - Strength/ROM Goal: Strength/ROM ADL Participation - Patient will participate in UE exercise program with independence to prevent deconditioning while in hospital and to max UE ROM/Coordination/strength for ADLs. Outcome: Ongoing OT treatment consisted of the following to work and progress towards the above goal(s): OT Evaluation and Treatment Time OT Evaluation (Moderate) Time Entry: Evaluating Therapist: Ayanna Figueroa OT Additional Details: OT Co-Eval/Treatment Information Co-evaluation/co-treatment performed?: Yes, simultaneous billable skilled care was necessary due to medical complexity and functional deficits Other discipline: PT Rationale for need to co-eval/treat: (post op status; deconditioning) Co-treatment goal focus: mobility, self-care OT Evaluation Complexity Occupational Profile and Client History: High - extensive history Assessment of Occupational Performance: Moderate (3-5 performance deficits) Clinical Decision/Performance Deficits: Moderate (detailed assessments w/several treatment options) Time In: 745 Time Out: 807 Total Visit Time: 22 minutes Total Treatment Time (skilled, billable minutes): 22 minutes PPE used during patient interaction: facemask, gloves Patient location at end of session: chair Alarms on at end of session: none altered Needs in reach. Upon discontinuation of Acute Care Occupational Therapy Services or patient discharge from the hospital this note represents the current Occupational Therapy Discharge Summary. Acute Physical Therapy Evaluation Prior to Admission AMPA score(s): PRIOR LEVEL AM-PAC Mobility Raw Score: 24 Current AM-PAC score(s): CURRENT AM-PAC Mobility Raw Score: 19 Based on the above AM-PAC score(s) and PT clinical judgment, patient is a good candidate for discharge to Home Barriers to discharge home: None Mobility equipment available at home: none used ADL equipment available at home: Equipment needed for discharge: none Current therapy frequency recommendation in acute: Therapy Frequency: 2 times a week Activity Recommendations for outside of rehab session: up with 1 and stand by assist Precautions and Weightbearing Status: Existing Precautions/Restrictions: seizure, fall No critical lines at this time Patient Safety Communication Prior to Visit: Nursing Subjective: Pt supine in bed reporting have more pain after this surgery and when trying to stand to transport cart yesterday. Has not ambulated yet Pain: General Pain Documentation (Adult, OB, Peds) Presence of Pain: complains of pain/discomfort Pain Location: head DVPRS (Defense and Veterans Pain Rating Scale) DVPRS: Rest: 3- mild pain DVPRS: Activity: 2- mild pain Home Setting Residence: House Lives With: spouse, dependent child(leonard) First floor setup: bedroom, walk-in shower Second floor setup: bedroom, tub shower Number of stairs to enter home: 2 Number of stairs in home: 12 Mobility Equipment Available: none used Previous Level of Function Prior level ADL Overview: Independent with all ADLs Bed Mobility/Transfers: independent Ambulation Skills: independent Assistive Device: none used Level of Ambulation: community 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[employer]; 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 Objective/Observation: Vitals/Vitals Responses to Treatment: No adverse events during session O2 Device: room air Cognition Overall Cognitive Status: Within Functional Limits Arousal/Alertness: Appropriate responses to stimuli Orientation Level: Oriented X4 Following Commands: Follows all commands and directions without difficulty Safety Judgment: Good awareness of safety precautions Awareness of Errors: Good awareness of errors made Deficits: Fully aware of deficits Attention Span: Appears intact Vision Screen Currently wearing corrective lenses: Reading only, No Vision History: h/o congenital horizontal nstagmus Clinical Observations: smooth and accurate smooth pursuits with known nystagmus Visual Impairments Observed?: No Speech Speech: no gross deficits noted Hearing Hearing: no gross deficits noted Extremity Assessments: RLE Assessment RLE Assessment: Within Functional Limits Right LE Assessment Details: 02/18 LLE Assessment LLE Assessment: Within Functional Limits Left LE Assessment Details: 02/18 Sensation Overall Sensation: Intact Proprioception Proprioception: intact Skin Integrity Skin Integrity Description: Swelling Edema Edema: present Location: around surgical incision Mobility Assessment: Supine to Sit Mobility [place] Level: Supine->Sit: minimum assist (75% patient effort) Bed Features/Set-up: Supine->Sit: Head of bed elevated Skilled Intervention/Details: Supine->Sit: pt noted to have guarded posture so requires guidance of LEs to EOB and PASSPORT SUPPORT ASSOCIATE to bring trunk upright Balance: Sitting Balance Static Sitting-Level of Assistance: Independent Dynamic Sitting-Level of Assistance: Supervision Sitting Balance Skilled Intervention/Details: pt sits OEB with cues to get feet supported on lfoor for balance; pt with mild increase in pain Standing Balance Static Standing-Level of Assistance: Stand-by assist Dynamic Standing-Level of Assistance: Stand-by assist Standing-Balance Support: No upper extremity supported Standing Balance Skilled Intervention/Details: pt stands at sink 2 minutes to brush teeth with unilateral vs. no UE support with out postural sway; ambulates without LOB, but with short hesitant steps Transfer Assessment: Sit to Stand Transfer [place] Level: Sit->Stand: stand-by assist Assistive Device: Sit->Stand: gait belt Skilled Intervention/Details: Sit->Stand: x1 EOB without use of UEs but with increased time Stand to Sit Transfer [place] Level: Stand->Sit: stand-by assist Assistive Device: Stand->Sit: gait belt, armed chair Skilled Intervention/Details: Stand->Sit: good eccentric control to chair with use of armrests Gait/Functional Mobility: Gait Assessment [place] Level: Gait: stand-by assist Assistive Device: Gait: gait belt Ambulation Distance (Feet): 300 Gait Deviations Identified: decreased gait speed, decreased step length, decreased stride length Skilled Intervention/Details - Gait: initially takes short narrow steps with guarded/tense posture, but step length and arm swing increases with time Wheelchair Assessment Patient currently uses wheelchair?: No Stairs: Stairs Assessment [place] Level: Stair Negotiation: stand-by assist Assistive Device: Stair Negotiation: gait belt, right rail (ascending) Number of stairs: 4 Skilled Intervention/Details - Stairs: ascends stairs with reciprocal pattern and descends stairs with step to pattern; no dizziness or overt LOB or increased effort Outcome Score(s): CURRENT AM-PAC Basic Mobility Inpatient Short Form Turning over in bed: 4 - No Assistance Sitting/standing from chair: 3 - A Little Assistance Moving from lying on back to sittin - A Little Assistance Moving to and from bed to chair: 3 - A Little Assistance Walk in hospital room: 3 - A Little Assistance Climbing 3-5 steps with a railin - A Little Assistance CURRENT [facility] Mobility Raw Score: 19 CURRENT [facility] Mobility Functional Limitation/Modifier: 41.77% Currently Impaired in Basic Mobility - CK Interventions: Assessment & Plan: Patient was admitted for R parietal craniotomy and seen for therapy evaluation related to impaired transfers and gait post-op due to pain. Exam findings include impairments in: Gait/Locomotion, Transfers, Posture, Balance. These impairments contribute to functional limitations including Decreased functional mobility, Difficulty with transfers, Difficulty with bed mobility, Limited standing tolerance, Ambulation/locomotion pain, Decreased ambulation distance/endurance, Difficulty completing work/school activities. Current clinical presentation is Evolving - changing/inconsistent clinical characteristics (Moderate). Patient history factors impacting Plan Of Care include none. Patient will benefit from skilled physical therapy to address these impairments, functional limitations, and participation restrictions and has excellent rehab potential to achieve therapy goals. Planned Therapy Interventions: balance training, gait training, stretching, ROM, bed mobility training, functional activity tolerance Patient Instruction/Education this session: PT role and POC Plan for next session: progress higher level standing balance and gait distance Acute PT Goals Plan of Care by Nuria Capellan PT at 10/27/2023 7:46 AM Version 1 of 1 Problem: PT - Balance/Coordination/Neuro Re-Education Goal: Standing Balance Description: Patient will score >45/56 on Youngblood balance scale to indicate low fall risk. Outcome: Ongoing Problem: PT - Mobility Goal: Ambulation - Patient will ambulate 500 feet with independence and without an assistive device to improve ability to safely navigate home and community. Outcome: Ongoing Goal: Stairs - Patient will ascend/descend 12 stairs with modified independence, without an assistive device, and single railing(s) to improve ability to safely navigate home and community. Outcome: Ongoing PT treatment consisted of the following to progress towards the above goal(s): PT Evaluation and Treatment Time PT Evaluation (Moderate) Time Entry: 22 Evaluating Therapist: Nuria Capellan PT Additional Details: PT Co-Eval/Treatment Information Co-evaluation/co-treatment performed?: Yes, simultaneous billable skilled care was necessary due to medical complexity and functional deficits Other discipline: OT Rationale for need to co-eval/treat: (pain) Evaluation Complexity Components History: Moderate (1-2 personal factors and/or comorbidities) Body Systems Review: Moderate (Addressing a total of 3 or more elements) Clinical Presentation: Evolving - changing/inconsistent clinical characteristics (Moderate) Clinical Decision Making: Moderate Time In: 0746 Time Out: 0808 Total Visit Time: 22 minutes Total Treatment Time (skilled, billable minutes): 22 minutes PPE used during patient interaction: gloves, facemask Patient location at end of session: chair, RN aware Alarms on at end of session: none Needs in reach. Upon discontinuation of Acute Care Physical Therapy Services or patient discharge from the hospital this note represents the current Physical Therapy Discharge Summary. Summary: Psychosocial Assesment SW called pt and his to complete psychosocial assessment; however, patient and did not answered the phone at this time. SW will revisit/attempt as able and remain available as needed. VALERI Green, ROLF SONC and [employer] Specialist Pager: [phone] For Evening (4:30pm-8am) and Weekend SW needs please call [phone] or page [phone] Pt with transfer orders. Report called to receiving RNSharlene. Pt hx and reason for current hospitalization reviewed. All questions answered. VSS. Pt to be taken via bed by [employer] to room 2111. Neuro critical care attending Progress note: 37 yo man with hx of seizures, congential nystagmus, recurrent right parietal oligoastrocytoma ross total resection in [facility] 09/29 and repeat resection with Dr. Santamaria 09/01). Admitted to the NCCU today s/p resection of disease progression. he is awake alert b.l horizontal nystagmus Face symmetric, language intact No focal weakness Vitals: 10/26/23 0645 10/26/23 0700 10/26/23 0750 10/26/23 0900 BP: 113/56 119/65 Pulse: 74 69 89 Resp: 21 17 19 Temp: 98.3 degrees F (36.8 degrees C) TempSrc: Oral SpO2: 96% 95% 95% Weight: Height: Recurrent oligoastrocytoma Post op pain Vasogenic edema Neuro checks q2h SBP<160 Decadron 4 mg every 6h Tylenol/oxy/diluaded prn Keppra 1g BID(home meds) Follow up biopsy results Post op ct with expect changes, pneumocephalus Pulm: ISQ1h Cards: SBP<160, labetalol and hydralazine prn, EKG Renal: Is and Os, chem 10 GI: GERD, Pepcid Po diet Endo: ISS PocGlu<180 ID: periop abx as per NSGY. Monitor fever curve, Tylenol prn for Temp>100.4 Hem: CBC, Plt>100, INR<1.4, SCD,Lovenox Lab Results Component Value Date WBC 14.52 (H) 10/26/2023 HGB 13.9 10/26/2023 HCT 38.4 (L) 10/26/2023 PLATELET 247 10/26/2023 MCV 84.0 10/26/2023 Lab Results Component Value Date CREATSERUM 0.82 10/26/2023 BUN 10 10/26/2023 SODIUM 138 10/26/2023 POTASSIUM 3.9 10/26/2023 CHLORIDE 103 10/26/2023 CO2 20 (L) 10/26/2023 Mary Scott MD NEUROCRITICAL CARE DAILY NOTE HOSPITAL VISIT DEMOGRAPHICS Patient: Ricardo Gallardo Code status: Full Code Admission date: 10/25/2023 6:18 AM Hospital days: LOS: 1 day HISTORY OF PRESENT ILLNESS Ricardo Gallardo is a 37 y.o. 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 Santamaria 09/01) Surveillance MRI B completed in February of 2023 demonstrated increased FLAIR signal abnormality in the right parietal lobe superolateral to surgical defect concerning for neoplastic disease progression. His case was discussed with tumor board and resection followed RT was recommended. Mr. Gallardo presents s/p right crani for tumor resection INTERVAL HISTORY SINCE ADMISSION 10/25/2023: Admit to NCCU s/p right crani 10/26: Transfer PHYSICAL EXAM GENERAL: Alert, no acute distress HEENT: normocephalic, dressing c/d/I CARDIO: +S1S2, RRR, no m/r/g, no edema PULM: clear to auscultation bilaterally, equal chest rise; ABDOMINAL: soft, nontender, nondistended, active bowel sounds EXTREMITIES: no wounds or lesions VASCULAR: 2+ distal pulses, capillary refill <3 seconds NEURO: Mental status: alert; oriented to person, place, year, and month; good attention Speech/language: fluent; comprehension intact; object naming intact; repetition intact Cranial nerves: CN II: Visual lui intact to confrontation. PERRL 3. 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 Lateral nystagmus (baseline). CN V: Facial sensation intact to light touch. CN VII: Facial strength normal with symmetric movement. CN VIII: Hearing is grossly intact. CN IX and X: Soft palate elevates symmetrically in the midline CN XI: Shoulder shrug and sternocleidomastoid strength 5/5 bilaterally CN XII: Tongue is midline with normal movement; no fasciculations Motor: Normal bulk and tone. No UE drift. 5/5 strength throughout. Sensation: Extremity sensation intact throughout. Coordination: without ataxia/dysmetria on FTS ASSESSMENT AND PLAN Neuro: (10/25/2023) 1 Day Post-Op s/p Right Craniotomy for Tumor Resection Seizures - Post-op Crani Management - Monitor neurostatus with neurochecks Q4H - Prevent postop hemorrhage with goal SBP <160 - Postop Imaging: - 10/25 CT H: post op changes - Home AEDs: Keppra 1000 mg BID - mass biopsied in OR, results pending - Vasogenic Cerebral Edema Management: - Decadron 4mg Q6H, wean per NSGY (last dose 11/08/23) - Pain/Sedation management - Tylenol 650mg Q4H PRN - Oxycodone 5 - 10 mg Q4H PRN Psych: No Current Issues Pulm: No Current Issues O2 Sat (%): 95 % (10/26 0900) O2 Device: room air (10/26 0750) - Goal SpO2 >92%; wean FiO2 as tolerated - @SBT@ - [id number], encourage pulmonary toileting Cards: No Current Issues Temp: [97.9 F (36.6 C)-98.6 F (37 C)] 98.3 F (36.8 C) Pulse (Heart Rate): [69-93] 89 Resp Rate: [12-23] 19 BP: (113-144)/(56-76) 119/65 Arterial Line (1) BP: (86-166)/(63-81) 98/80 O2 Sat (%): [93 %-96 %] 95 % Weight: [90.8 kg (200 lb 2.8 oz)] 90.8 kg (200 lb 2.8 oz) - Goal SBP <160, MAP >65 - Home antihypertensives: none - PRN labetalol and hydralazine - 10/25 ECG: NSR; Qtc 419 Renal/: No Current Issues - Fluid Balance: - Goal: euvolemia Intake/Output Summary (Last 24 hours) at 10/26/2023 1013 Last data filed at 10/26/2023 0751 Gross per 24 hour Intake 2762.68 ml Output 4530 ml Net -1767.32 ml - Discontinue kendrick 10/26 (indication: cheri-op) - No MIV, regular diet - Daily Chem 10; electrolytes replaced per NCCU protocol Recent Labs 10/26/23 0047 SODIUM 138 POTASSIUM 3.9 CHLORIDE 103 CO2 20* BUN 10 CREATSERUM 0.82 MAGNESIUM 1.5* PHOSPHORUS 2.9 ICA 4.55* GI/Nutrition: No Current Issues No results for input(s): ALBUMIN , BILIDIRECT , BILITOTAL , ALKPHOS , ALT , AST , TP , AMYLASE , LIPASE in the last 72 hours. - DIET REGULAR - - Bowel regimen: - - Senna, miralax, docusate - Zofran PRN for nausea Endo: No Current Issues - Goal blood glucose 140-180 -Monitor for need for SSI Recent Labs 10/25/23 1712 10/26/23 0047 GLUCOSE 169* 161* ID: No Current Issues Recent Labs 10/26/23 0047 WBC 14.52* - Temp (24hrs), Av.2 F (36.8 C), Min:97.9 F (36.6 C), Max:98.6 F (37 C) - PRN Tylenol for T>100.4F - Most recent and positive cultures: Date Collected Source Result Date Finalized - Antiinfectives: Start Date Antiinfective Coverage Course Length Stop Date 10/25 Ancef Cheri-op 3 doses 10/26 Heme/Onc: No Current Issues Recent Labs 10/26/23 004 WBC 14.52* RBC 4.57 HGB 13.9 HCT 38.4* PLATELET 247 PT 12.9 PTT 26.8 INR 1.0 - Goal plt >100, INR <1.4, Hgb >7 - OR EBL: 30mL - Lovenox DVT ppx started 10/26/23 Musc: No Current Issues - PT/OT consulted and following - Current Activity Order: AAT Social/Dispo: - Code status: Full Code - Primary Emergency Contact: Umm Gallardo, - HCPOA/LNOK: Umm Gallardo - 10/25: Update patient on plan of care - 10/26: Updated patient on plan of care at bedside, answered questions - Medications reconciled - Discharge planning per PCRM/SW. Complexity. Hypomagnesemia - Continue to monitor and replete. Obesity Body mass index is 35.46 kg/m . - Follow with PCP for dietary and lifestyle modifications. Any conditions listed below are present on admission unless otherwise specified. . ICU Checklist: [ ] CAM-ICU [ ] SAT [ ] SBT [x] DVT ppx; [x] SCDs; [x] Lovenox, [ ] heparin [x] Stress ulcer prophylaxis: pepcid (indication: steroids) - Lines/Tubes: [place]: inserted 10/25, discontinued 10/26 (indication:hemodynamic monitoring ) Kendrick: inserted 10/25, discontinued 10/26 (indication:cheri-op) Discussed with NCCU Attending, Dr. Tyler Linda, PAC Service pager: [phone] Service [place] #: [phone] (Beds [id number] and beds), [place] #: [phone] (Beds [id number] and [place] beds) 10/26/23 10:13 AM Neuro critical care attending Progress note: 37 yo man with hx of seizures, congential nystagmus, recurrent right parietal oligoastrocytoma ross total resection in [facility] 09/29 and repeat resection with Dr. Santamaria 09/01). Admitted to the NCCU today s/p resection of disease progression. Post op he is drowsy but wakes up easily,, b.l horizontal nystagmus Face symmetric, language intact No focal weakness Vitals: 10/25/23 1509 10/25/23 1600 10/25/23 1700 10/25/23 1800 BP: 144/76 141/65 Pulse: 87 87 89 Resp: 18 20 20 Temp: 98.3 degrees F (36.8 degrees C) 98.3 degrees F (36.8 degrees C) TempSrc: Oral Oral SpO2: 96% 94% 94% Weight: Height: Recurrent oligoastrocytoma Post op pain Vasogenic edema Neuro checks q1h SBP<160 Decadron 4 mg every 6h Tylenol/oxy/diluaded prn Keppra 1g BID(home meds) Follow up biopsy results Post op ct with expect changes, pneumocephalus Pulm: CXR, ISQ1h Cards: SBP<160, labetalol and hydralazine prn, EKG Renal: Is and Os, NS@ 75 cc.hr chem 10 GI: GERD, Pepcid Po diet Endo: ISS PocGlu<180 ID: periop abx as per NSGY. Monitor fever curve, Tylenol prn for Temp>100.4 Hem: CBC, Plt>100, INR<1.4, SCD,Lovenox when cleared by nsgy Lab Results Component Value Date WBC 6.75 10/13/2023 HGB 15.3 10/13/2023 HCT 43.1 10/13/2023 PLATELET 215 10/13/2023 MCV 86.0 10/13/2023 Lab Results Component Value Date CREATSERUM 0.98 10/13/2023 BUN 11 10/13/2023 SODIUM 138 10/13/2023 POTASSIUM 4.0 10/13/2023 CHLORIDE 102 10/13/2023 CO2 29 10/13/2023 Mary Scott MD NEUROCRITICAL CARE DAILY NOTE HOSPITAL VISIT DEMOGRAPHICS Patient: Ricardo Gallardo Code status: Prior Admission date: 10/25/2023 6:18 AM Hospital days: LOS: 0 days HISTORY OF PRESENT ILLNESS Ricardo Gallardo is a 37 y.o. 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 Santamaria 09/01) Surveillance MRI B completed in February of 2023 demonstrated increased FLAIR signal abnormality in the right parietal lobe superolateral to surgical defect concerning for neoplastic disease progression. His case was discussed with tumor board and resection followed RT was recommended. Mr. Gallardo presents s/p right crani for tumor resection INTERVAL HISTORY SINCE ADMISSION 10/25/2023: Admit to NCCU s/p right crani PHYSICAL EXAM GENERAL: Alert, no acute distress HEENT: normocephalic, dressing c/d/I CARDIO: +S1S2, RRR, no m/r/g, no edema PULM: clear to auscultation bilaterally, equal chest rise; ABDOMINAL: soft, nontender, nondistended, active bowel sounds EXTREMITIES: no wounds or lesions VASCULAR: 2+ distal pulses, capillary refill <3 seconds NEURO: Mental status: alert; oriented to person, place, year, and month; good attention Speech/language: fluent; comprehension intact; object naming intact; repetition intact Cranial nerves: CN II: Visual lui intact to confrontation. 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 Lateral nystagmus (baseline). CN V: Facial sensation intact to light touch. CN VII: Facial strength normal with symmetric movement. CN VIII: Hearing is grossly intact. CN IX and X: Soft palate elevates symmetrically in the midline CN XI: Shoulder shrug and sternocleidomastoid strength 5/5 bilaterally CN XII: Tongue is midline with normal movement; no fasciculations Motor: Normal bulk and tone. No UE drift. 5/5 strength throughout. Sensation: Extremity sensation intact throughout. Coordination: without ataxia/dysmetria on FTS ASSESSMENT AND PLAN Neuro: (10/25/2023) Day of Surgery s/p Right Craniotomy for Tumor Resection Seizures - Post-op Crani Management - Monitor neurostatus with neurochecks Q1H - Prevent postop hemorrhage with goal SBP <160 - Postop Imaging: - 10/25 CT H: post op changes - Home AEDs: Keppra 1000 mg BID - mass biopsied in OR, results pending - Vasogenic Cerebral Edema Management: - Decadron 4mg Q6H, wean per NSGY - Pain/Sedation management - Tylenol 650mg Q4H PRN - Oxycodone 5 mg Q4H PRN -Dilaudid 0.5-1 mg Q3H PRN Psych: No Current Issues Pulm: No Current Issues O2 Sat (%): 95 % (10/25 1400) O2 Device: room air (10/25 1200) - Goal SpO2 >92%; wean FiO2 as tolerated - @SBT@ - [id number], encourage pulmonary toileting Cards: No Current Issues Temp: [97.8 F (36.6 C)-98.3 F (36.8 C)] 98.3 F (36.8 C) Pulse (Heart Rate): [78-88] 87 Resp Rate: [12-20] 19 BP: (131-143)/(61-76) 143/74 Arterial Line (1) BP: (137-166)/(68-79) 156/79 O2 Sat (%): [94 %-98 %] 95 % Weight: [90.8 kg (200 lb 2.8 oz)-92.1 kg (203 lb)] 90.8 kg (200 lb 2.8 oz) - Goal SBP <160, MAP >65 - Home antihypertensives: none - PRN labetalol and hydralazine - 10/25 ECG: NSR; Qtc 419 Renal/: No Current Issues - Fluid Balance: - Goal: euvolemia - Net pmL/24H, pmL/admission - UOP pmL/24H - Continue kendrick (indication: cheri-op) - Maintenance: 0.9NS w/ 20 KCl @ 75mL/hr - Daily Chem 10; electrolytes replaced per NCCU protocol No results for input(s): SODIUM , POTASSIUM , CHLORIDE , CO2 , BUN , CREATSERUM , MAGNESIUM , PHOSPHORUS , ICA , CPK in the last 72 hours. GI/Nutrition: No Current Issues No results for input(s): ALBUMIN , BILIDIRECT , BILITOTAL , ALKPHOS , ALT , AST , TP , AMYLASE , LIPASE in the last 72 hours. - DIET REGULAR - - Bowel regimen: - - Senna, miralax Endo: No Current Issues - Goal blood glucose 140-180 -Monitor for need for SSI No results for input(s): GLUCOSE , HGBA1C in the last 72 hours. ID: No Current Issues No results for input(s): WBC , LACT , PROCALCITONI in the last 72 hours. - Temp (24hrs), Av F (36.7 C), Min:97.8 F (36.6 C), Max:98.3 F (36.8 C) - PRN Tylenol for T>100.4F - Most recent and positive cultures: Date Collected Source Result Date Finalized - Antiinfectives: Start Date Antiinfective Coverage Course Length Stop Date 10/25 Ancef Cheri-op 3 doses 10/26 Heme/Onc: No Current Issues No results for input(s): WBC , RBC , HGB , HCT , PLATELET , PT , PTT , INR , FIBRINOGEN in the last 72 hours. - Goal plt >100, INR <1.4, Hgb >7 - OR EBL: 30mL Musc: No Current Issues - PT/OT consulted and following - Current Activity Order: AAT Social/Dispo: - Code status: Full Code - Primary Emergency Contact: Umm Gallardo, - HCPOA/LNOK: Umm Gallardo - 10/25: Update patient on plan of care - Medications reconciled - Discharge planning per PCRM/SW. Complexity. Obesity Body mass index is 35.46 kg/m . - Follow with PCP for dietary and lifestyle modifications. Any conditions listed below are present on admission unless otherwise specified. . ICU Checklist: [ ] CAM-ICU [ ] SAT [ ] SBT [ ] DVT ppx; [ ] SCDs; [ ] Lovenox, [ ] heparin [ ] Stress ulcer prophylaxis: pepcid (indication: steroids) - Lines/Tubes: Dulce: inserted 10/25, (indication:hemodynamic monitoring ) Kendrick: inserted 10/25, (indication:cheri-op) Discussed with NCCU Attending, JORDAN Oneil Service pager: [phone] Service [place] #: [id number] (Beds [phone] and beds), [place] #: [id number] (Beds [id number] and [facility] beds) 10/25/23 3:57 PM documented in this encounter [facility] 10-27-2023 Plan of care note Problem: OT - Dressing Goal: Lower Body Dressing - Patient will complete lower body dressing tasks with modified independence using adaptive equipment/compensatory strategies as needed for improved ability to complete self-care activities. Outcome: Ongoing Problem: OT - ADLs Goal: Toileting - Patient will complete toileting task with modified independence and adaptive equipment as needed for improved ability to safely complete self-care activities. Outcome: Ongoing Goal: Bathing - Patient will perform full body bathing routine with modified independence while standing for improved ability to complete self-care activities Outcome: Ongoing Problem: OT - Balance Goal: Balance - Standing - Patient will perform 10 minutes of functional task in standing with modified independence and good balance to promote safety and improved balance required for self-care activities. Outcome: Ongoing Problem: OT - Endurance Goal: Endurance Functional Mobility - Patient will complete distance needed for limited community mobility with no rest breaks for improved tolerance to safely complete I/ADL's Outcome: Ongoing Problem: OT - Transfers Goal: Transfers Supine -> Sit - Patient will perform supine to/from sit with flat bed & no rail and independence to improve participation in ADLs. Outcome: Ongoing Problem: OT - Strength/ROM Goal: Strength/ROM ADL Participation - Patient will participate in UE exercise program with independence to prevent deconditioning while in hospital and to max UE ROM/Coordination/strength for ADLs. Outcome: Ongoing [facility] 10-27-2023 Plan of care note Problem: PT - Balance/Coordination/Neuro Re-Education Goal: Standing Balance Description: Patient will score >45/56 on Youngblood balance scale to indicate low fall risk. Outcome: Ongoing Problem: PT - Mobility Goal: Ambulation - Patient will ambulate 500 feet with independence and without an assistive device to improve ability to safely navigate home and community. Outcome: Ongoing Goal: Stairs - Patient will ascend/descend 12 stairs with modified independence, without an assistive device, and single railing(s) to improve ability to safely navigate home and community. Outcome: Ongoing [facility] 10-26-2023 Plan of care note Problem: Patient Care Overview Goal: Plan of Care Review Outcome: Ongoing Goal: Individualization & Mutuality Outcome: Ongoing [facility] 10-26-2023 Nurse Note Paulina, Rm 2111; Pt's pain is not being controlled with the oxycodone. Pt also hallucinates when he takes it. Can we try a different pain medication to try to help relieve his pain? VIANEY Bolanos [phone] [facility] 10-26-2023 Nurse Note 10/26/23 0970 Referral Information Arrived From operating room Readmission Information Was patient readmitted within 30 Days? No Information Source Information Source patient ;review of medical record;spouse (pt just had pain med, resting) Information Source Name Umm Gallardo Information Source Number [phone] Outpatient Providers Outpatient Providers Updated In IHIS Yes Contact Information [employer] Consultant/SW Added to Care Team Yes This Media/Instructional Designer is Primary [employer] Consultant/SW No [employer] Consultant Name Imani Lima RN for Sena Rothman RN, PCRM [employer] Consultant's - [phone] Social Work Contact Name BEBE [employer] Sales Specialist's Living Environment Lives With Spouse and 4 dependent children Living Arrangements house (Two story with 2 INDRA) Provides Primary Care For no one Primary Care Provided By self Support System Immediate family Able to Return to Prior Arrangements yes Functional Status Patient's Functional Status Prior To This Admission? Independent Are There Status Changes This Admission? Yes Changes Observed Since Admission? Physical Concerns With Patient Being Able To Care For Themselves At Discharge? Has Assistance (Friend, Family, Skilled Provider) Who Is Patient's Primary Contact For Discharge Planning, Education And Care For Discharge? Self/spouse Can Support Person Meet The Care Needs Of The Patient? Yes Employment/Financial Employed? 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 [employer] Employment/Financial Concerns no Source Of Income salary/wages Financial Concerns none Insurance Medical Insurance Verified Yes Prescription Coverage Yes Pharmacy updated in IS Yes Initial Discharge Planning Home Care Services (HIDE SALTER) No Home Therapies (HIDE SALTER) None DME (HIDE SALTER) None Medical Supplies (HIDE SALTER) None Patient Goal for Discharge Return home with assistance from family and friends Anticipated discharge disposition Home Anticipated Services at Discharge Outpatient clinical services (ie: lab draws, transfusions, injectables) Anticipated Changes Related to Illness none Current Discharge Risk high risk diagnoses (i.e., CHF, Stroke, DM, chronic pain, abdominal pain, nausea and vomiting) Transportation Available car;family or friend will provide Discharge Planning Comments May want hospital bed at discharge Home Care Services (HIDE SALTER) Additional Home Care Services (HIDE SALTER) no Assessment/Concerns to be Addressed Concerns To Be Addressed care coordination/care conferences;adjustment to diagnosis/illness concerns;coping/stress concerns PCRM Initial Assessment Met with/Spoke with patient to complete the initial assessment. Explained role and function of PCRM in multidisciplinary team. Contact number provided for questions. Demographic information reviewed with patient/family and confirmed as correct. Reason for Admission: 37 y.o. man w/ h/o Seizures, Congenital nystagmus, recurrent right parietal oligoastrocytoma (gross total resection [facility] 09/29 and repeat resection [facility] 09/01). Admitted for s/p resection of brain tumor, disease progression. Excision brain tumor by craniotomy, right on 10/25. Estimated length of stay: 2-3 days Advanced directives Patient does not have Advanced Directives on File Lines/Drains/Tubes None, HIDE SALTER Initial PCRM Discharge Planning Plan for discharge to home, when medically stable. Final plan will be determined closer to discharge, pending therapy and medical team recommendations. Patient/family verbalized understanding and agreement with the plan of care. Patient/family have no questions at this time. PCRM will continue to follow patient with multidisciplinary team for ongoing assessment of needs and for discharge planning. Medical team updated. Imani Rothman RN, [facility] [phone] For evening and weekend discharge assistance please page the component design engineer PCRM at [phone]. [facility] 10-26-2023 Nurse Note Paged MD [place] in regards to family's request for PT/OT consult. [facility] 10-26-2023 Nurse Note 10/26/23 1413 Referral Information Arrived From operating room Final Discharge Planning Discharge Disposition Home CM/SW AVS Portion Completed Yes Additional Community Agency Name(s) no Plan Plan Patient plans to discharge home with family support when medically stable, family to provide transport Patient/Family In Agreement With Plan yes [facility] Patient discussed in medical rounds for discharge to home when medically stable. Per medical team, patient has no needs at time of discharge Services for Discharge Denies need for services at time of discharge Consults with Final Discharge Recommendations No consults at this time Lines/Tubes/Drains/Wounds/Supplies PIV x 2- to be removed prior to discharge R head surgical incsion Medications No barriers anticipated in obtaining discharge medications. No prior authorizations anticipated. Reconciliation of medications to be completed by the medical team. Durable Medical Equipment None- no needs per medical team Choice Was Patient Choice Provided: N/A Transportation Transportation will be provided by family member. Education Discharge education provided by the medical team and updated in the After Visit Summary. Follow Up(s) Any follow up requested by the medical team arranged. Appointments in the After Visit Summary. Future Appointments Provider Department [place] 11/08/2023 11:00 AM Baldomero Vieira; [facility] Department of Radiation Oncology Arrive at: Arrive to Ground Floor Registration [facility] 11/17/2023 11:00 AM Joe Capone Division of Neuro Surgery at [facility] Sp[facility] 11/17/2023 3:30 PM Jaziel Urban Division of Neuro Oncology at [facility] Was Ambulatory PCRM added to the Care Team? No- No outpatient PCRM for this physician The team has updated the patient's nurse regarding the final discharge plan. Risk of Readmission: 2.3 Category Reference: Low: 0% - 5% Medium - Low: 5.1% - 10% Medium - High: 10.1% - 16% High: 16.1% - 100% Readmission Risk Interventions Documented: Yes No other discharge needs have been identified at this time. This plan was developed in collaboration with the patient and caregiver/preferred decision maker. Patient and family are in agreement with final discharge plan. Please refer to AVS and medical record for additional information. Patient instructed to call with questions. PCRM will continue to follow with medical team for any additional discharge planning needs. Vivien GARCIA RN, [facility], PCRM [phone] If any changes to this individualized plan of care during evening and weekend hours and assistance is needed, please page the component design engineer PCRM at [phone]. [facility] 10-25-2023 Surgery Postoperative evaluation and management note Ricardo Gallardo ([id number]) PRE OPERATIVE DIAGNOSIS Brain tumor [D49.6] POST OPERATIVE DIAGNOSIS Brain tumor [D49.6] PROCEDURE PERFORMED Procedure(s) (LRB): EXCISION BRAIN TUMOR BY CRANIOTOMY (Right) EVALUATION MRI BRAIN INTRAOPERATIVE (Bilateral) MONITORING NEUROPHYSIOLOGY INTRAOPERATIVE ADD-ON PX (Bilateral) COMPLICATIONS None INTRAOPERATIVE FINDINGS No significant abnormalities SURGEON Surgeon(s) and Role: * Cherie Santamaria MD - Primary ANESTHESIOLOGIST Anesthesiologist: Nara Cardoza MD Industrial Retrofit Designer Assisting: Tayler Naidu DO SURGICAL STAFF Candy Wrapping Machine Operator: Janet Bowers RN Relief Candy Wrapping Machine Operator: Casimiro Mayo RN Relief Scrub: Kayden Zarate Resident Assisting: Steve Ratliff MD, PhD Fellow: Tan Booker MD Transport Engineer: Anjum Bonilla ESTIMATED BLOOD LOSS 30 ml SPECIMENS Cytology specimen sent ID Type Source Tests Collected by Time Destination 1 : Right parietal brain tumor Frozen SURG PATH SURG PATH REQUEST Cherie Santamaria MD 10/25/2023 0845 2 : Right parietal tumor #1 Permanent SURG PATH SURG PATH REQUEST Cherie Santamaria MD 10/25/2023 0856 3 : Right parietal tumor #2 Frozen SURG PATH SURG PATH REQUEST Cherie Santamaria MD 10/25/2023 0900 4 : Right parietal tumor #2 Permanent SURG PATH SURG PATH REQUEST Cherie Santamaria MD 10/25/2023 0957 aTn Booker MD October 25, 2023 10:53 AM [facility] 10-25-2023 Surgery Postoperative evaluation and management note OPERATIVE REPORT PATIENT: Ricardo Gallardo DATE: 10/25/2023 ATTENDING SURGEON: Jonnathan Santamaria MD FELLOW SURGEON: Tan Booker MD RESIDENT SURGEON: Gaudencio Wilson MD PROCEDURES PERFORMED: 1. Right parietal craniotomy for resection of brain lesion. 2. Use of intraoperative neuronavigation. 3. Use of and interpretation of intraoperative ultrasound. 4. Use of and interpretation of intraoperative neuromonitoring - subcortical mapping/stimulation 5. Use and interpretation of intraoperative MRI PREOPERATIVE DIAGNOSIS: right parietal brain lesion. POSTPROCEDURE DIAGNOSIS: right parietal brain lesion. ANESTHESIA: General endotracheal anesthesia. ESTIMATED BLOOD LOSS: 30 cc. INDICATIONS: Ricardo Gallardo is a 37 y.o. 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 He has been following up with the oncology department and his most recent brain MRI demonstrated a right parietal lesion (hyperintense on T2WI with no contrast enhancement) concerning for recurrent glioma. Given the presence of the lesion and the good KPS presented by the patient we recommended resection for tissue diagnosis and treatment. The patient was counseled regarding risks and benefits of surgery for removal; the risks including bleeding, infection, need for reoperation, pain, unable to perform procedure, unable to remove all the lesion, no improvement of preoperative symptoms or worsening of preoperative symptoms, new neurologic deficits including but not limited to weakness, paralysis, numbness, aphasia or speech deficit, cognitive dysfunction, memory disturbance, cerebrospinal fluid leak, stroke, heart attack, risks of general anesthesia and . The patient verbalized understanding and signed the consent for the procedure. DETAILS OF THE OPERATION: The patient was brought to the operating room. Anesthesia proceeded to intubate the patient and obtain the necessary vascular access. The patient was placed in a Nicole MRI compatible head clamp at 60 pounds of pressure and placed in the supine position. The head was turned to the left to maximize our approach and then the clamp was locked to the bed. The neuronavigation system was attached to the head clamp. The patient's facial landmarks were used to register with the system. Neuronavigation had been used to map out the most appropriate location for the incision. Neuromonitoring needles were placed and baselines were established. The incision was then redrawn with a marking pen. This was a curvilinear incision over the previous scar but also extended superiorly. Area was shaved, prepped and draped in the standard sterile fashion. After performing a time-out, the skin incision was made with a #10-blade scalpel through the skin, subcutaneous fat and galea. Alma clips were applied to the skin edges. The skin flap was then dissected away from the underlying skull using the periosteal dissector. The most superior and posterior portion of the previous craniotomy was exposed. With a M8 drill tip we performed a bur hole. A #3 [place] was used to dissect dura away from inner table of the bone. Craniotome was used to generate a new craniotomy. Flap was dissected away from the underlying dura and passed off for use later in the case. The C1 was used to place tangential holes at the edges of the skull and then dural tack-up stitches were placed using 4-0 Surgilon sutures. The ultrasound was brought into the field and used to verify that the lesion was deep to the exposed dura. At this point the wound was copiously irrigated and we washed away bone debris. The dura was opened in a curvilinear fashion using a 15-blade scalpel, with the pedicle facing posteriorly. The dural leaflet was reflected posteriorly. The navigation probe verified that we were indeed above the tumor as planned and that we were able to completely excise it with our exposure. The ultrasound was used to obtain baseline images of the tumor and confirm that our planned approach would be adequate for resection. We identified the tumor facing the cavity of the previous resection. At this point, blunt dissection through the borders of the tumor was performed, respecting the sulcus anteriorly and posteriorly to the tumor. The [place] instruments and suction instruments as well as the bipolar were used to bluntly dissect the lesion away from the surrounding brain. We used cotton patties to keep our plane established circumferentially. We reached the deep portion of the tumor. Tumor was sent to pathology for permanent analysis, and a sample was sent to frozen analysis which was compatible with recurrent glioma. We proceeded to evaluate the FLAIR hyperintense area deeper in the white matter. We used subcortical mapping in this region, with no responses at 10mA of stimulation. We resected a portion of this area and sent to pathology for permanent and frozen analysis. The frozen report was suggestive of reactive brain parenchyma with some atypical cells but not tumoral tissue. We felt confident that we had resected the tumor and that any further resection would increase the risk of postoperative deficits. We used all of the junction measures we had including the ultrasound as well as the neuro navigation to confirm that we felt that we had adequate resection. After we would confirmed, we approximated dura and the skin and covered the incision with Ioban to keep the surgical field sterile. The patient was transferred to the MRI room, where we performed a brain MRI that demonstrated resection of all the tumor. The patient was brought back to the OR. The surgical field was kept sterile and draped. We cut the sutures that were approximating the skin and dura and exposed the surgical cavity. Final inspection of the brain and resection cavity revealed no evidence of any residual lesion. The resection cavity was then copiously irrigated. The resection cavity was then lined with a monolayer of Surgicel. Careful hemostasis was verified and then attention was turned towards closure. The intracranial space was filled with irrigation. The dura was reapproximated using interrupted 4-0 Surgilon sutures. A 2x2 inches duragen was placed between the dura and the bone flap. The bone flap was then secured to the skull using the usual cranial plating system. The wound was then copiously irrigated. Alma clips were removed. The galea was reapproximated using interrupted inverted 2-0 Vicryl sutures. The skin was sutured with 3-0 Nylon. On the conclusion of the case, all surgical counts were correct x2. Surgical time-out was performed. Sterile drapes were removed and the incision was wiped dry and a dressing placed over the incision. The patient was removed from the Grajeda head clamp. Anesthesia was able to extubate the patient without difficulty. The patient was transported to the ICU in stable condition Associated attestation - Cherie Santamaria MD - 10/25/2023 1:48 PM EST I, Dr. Santamaria, was present and scrubbed for all critical portions of the procedure and Dr. Kiser was immediately available throughout. [facility] 10-25-2023 Hospital Discharge instructions Sena Maharaj RN - 10/25/2023 9:09 AM EST Images from the original note were not included. Your Men'S Custom Hair Piece Consultant (PCRM) has arranged your appointments for follow up based on your preference of where you would like to continue your care. If you are unable to attend appointments that have been arranged for you, it is your responsibility to call to reschedule at least 48 hours prior to the appointment date. Your PCRM has arranged additional care needs such as home health, infusion services, or durable medical equipment based on your preference and options available by your insurance and local agencies. Your After Visit Summary (AVS) has provided you with instructions for your discharge. It is your responsibility to ask questions if you have any. Please contact your medical care team at the numbers listed if you should have any additional questions. IMPORTANT: Automated Post Discharge Call Patient Information As part of your care, we will call you at the primary number we have on file, the day after you are discharged at 9:30 a.m. to check on you. Please expect a two-minute automated telephone call from the hospital. This call will come from [phone]. If you are unable to answer or do not receive the automated call, please call [phone] to complete this important evaluation. By answering the phone evaluation, a [facility]rie nurse will be notified if you have any questions or concerns and call you back. If you have an immediate medical need call your doctor s office, or if you have a medical emergency call 911. Sena Maharaj RN - 10/25/2023 9:09 AM EST Education Regarding your Medication: If you are taking aspirin, clopidogrel (Plavix), warfarin (Coumadin) or other blood thinners, you must talk to your surgeon about when to restart these medicines. Unless approved by your surgeon, do not take any non-steroidal anti-inflammatory drugs, called NSAIDs. These medicines include ibuprofen (Motrin or Advil), naprosyn (Naproxen or Aleve), and arthritis medications such as Celebrex for several weeks following surgery. Please discuss with your neurosurgeon prior to taking any of these medications. PAIN MEDICATION: As first line pain medication, please use: Tylenol Extra-strength/Acetaminophen, 2 tablets every 4-6 hours as needed for mild pain. DO NOT TAKE MORE THAN 4000MG PER DAY. A prescription for a stronger pain medicine has been sent home with you. Please use this as needed as a second pain medication for breakthrough pain between Tylenol doses. Pain medication is typically not refilled by your neurosurgeon. If your pain continues for longer than 1-2 weeks after surgery, please see your primary care physician for ongoing pain management. Narcotic pain medication may cause constipation. Drink at least 6-8 cups of fluid each day to prevent constipation. Be sure to take stool softeners or laxatives while you are on narcotic pain medication. Follow the package directions or consult with your local pharmacist if you have questions Take pain medication with food to prevent nausea. Wean yourself off narcotics as soon as you are able. These can cause rebound headaches and may even make headaches worse. Do not drink any alcoholic beverages until approved by your surgeon. This may thin your blood and increase your risk of bleeding. Do not drive after taking prescription pain medicine as it can make you drowsy. Home Medicines-New Your medications may have been changed during your hospital stay. Review your list of medicines and only take those medicines on the list. Do not take any other medicines unless you first check with your doctor. Home Medicines-Resume If instructed to do so by your doctor, resume the medicines that you were taking at home before your hospital stay. QUESTIONS ABOUT YOUR MEDICATIONS: - If you have questions about your medications, please call your doctor or nurse, at the numbers provided - Always keep an updated list of your current medications with you, and bring it to your doctor's appointments. The list should include: What medication (ex. Brand/Generic Name) How you take your medication (ex. By Mouth) When you take your medication/ How often do you take your medication (ex. Once a day/ or ex. as needed for pain, etc) When was the last time you took your medication Sena Maharaj RN - 10/25/2023 9:09 AM EST Activity: To protect your health, follow these guidelines from your surgeon: For 2 weeks after surgery, keep your head elevated to prevent swelling. Use extra pillows while sleeping and do not lie flat. Walk as you are able. Start with short distances and work up to longer times standing and walking. Tell your surgeon about your progress at your follow-up visit. Use the hand railing for support when going up and down stairs. It is normal for your energy level and sleep patterns to change after surgery. These things slowly return to normal as you start your usual activities. Get extra sleep at night and take naps during the day while you heal. Remember, everyone s recovery is different, so don t get discouraged. You may do light housework, such as dusting, but not vacuuming. Limit lifting, pushing or pulling to 5 pounds or less. This is about gallon of milk. A gallon weighs 8 pounds and will be too heavy. Do not do any activity or exercise that makes your sweat or bend over so your head is lower than your heart. Do not drive or operative power tools or machinery until approved by your surgeon. If/when cleared for driving, your physician can let you know if a driving evaluation is needed. For one month following surgery, do not sit in a car for more than 45 minutes. If you take a longer trip than 60 minutes, stop every hour and get out and walk around for a few minutes. Avoid all tub baths, hot tubs and swimming pools until your surgeon has given approval to soak the incision in water. Your surgeon will instruct you when it is safe to return to work. NI Maharaj RN - 10/25/2023 9:09 AM EST Diet: You may resume your home diet. It is important to get enough fluid to stay hydrated to prevent dizziness and falling. If you are diabetic, it is important to maintain tight blood sugar control to promote wound healing. Heart Healthy: Choose healthy fats and oils such as canola or olive oil. Limit high cholesterol foods. Avoid added salt and caffeine in your foods. NI Maharaj RN - 10/25/2023 9:09 AM EST Discharge instructions following your CRANIOTOMY surgery: When to call your Surgeon's Office: If you have one or more of these signs call your surgeon s office. The phone number will be under the follow up section of your discharge instructions: Temperature of 100.4 degrees Fahrenheit or greater (38 degrees Celsius) Drainage from your incision Skin around the incision becomes red, warm, swollen or painful Feeling any fluid dripping from your nose or your ears When to go to the Emergency Department: If you have any of these signs go to the nearest emergency department or call 911 right away: Any change in alertness; feel more sleepy than usual, restless and/or confused Breathing problems Chest pain (including chest pressure or tightness) Vision problems or a change in vision New problems with weakness, numbness, balance, walking or inability to move an arm or leg. Problems may be only on one side of the body. Change in face appearance, such as drooping on one side of the face Not able to speak or problems when talking Trouble swallowing Seizures Nausea and vomiting that continues or gets worse Severe headache or headache with a stiff neck NEUROSURGERY CONTACT INFORMATION Emergency needs Call 911 Non-urgent medical questions (including questions about medications or to change an appointment): Mon- Fri 8a-4:00p, call the surgery office [phone] Evenings, weekends and holidays: call the office which will take you to the answering service [facility] paperwork or forms: Call [phone] Form completion will take 10 to 14 business days The pillowcase cutter or health care social worker will not have updates related to the status of your paperwork. Please contact your physician's office. Patient care units: [facility] - [facility] - Medical records or imaging disks please call [phone]. NI Maharaj RN - 10/25/2023 9:09 AM EST Staple/stitches Removal: Your marine/sutures need to remain in place for approximately 14 to 21 days. These will be removed at you outpatient follow up with your Neurosurgeon Incision Care: Check your incision every day for redness or drainage. It is normal to have some bruising, swelling or tenderness around the incision. Your dressing will be removed prior to discharge. NEVER leave a wet or dirty dressing on your incision. If your incision is damp or dirty it can delay healing and lead to infection. Do not scratch or pick at the incision as it heals. Protect your incision by: Cleaning the area around the wound and putting on a new dressing Taking a shower if it has been 5 or more days after surgery Do not take a tub bath or submerge your incision under water Dry the wound completely Do not apply any of these products to the wound unless told to do so by your surgeon: lotions, creams, ointments (such as Neosporin), alcohol, hydrogen peroxide, powder, or sunscreen Avoid wearing glasses after surgery. If glasses are needed, please use gauze at the lutheran/arm end of the glasses the incision from the glasses Protect your wound from sun exposure and avoid all sun if possible. Please avoid wearing hats of any type, including baseball hats or knit hats. If you need to briefly cover your head while outside, a hoodie sweatshirt or similar is preferred. Tobacco use delays healing. If you need help with quitting tobacco, please talk with your doctor. Showering: For the first 4 days after surgery, do sponge baths. Avoid getting the incision and dressing wet. For example, if you had your surgery on Tuesday, do only sponge baths until Tuesday. Beginning the fifth day after surgery: If you are sent home with a dressing covering your incision, you may remove the dressing once you are home. Your wound may b left open to air after that. You may take a shower and wash your hair. Do not take a tub bath. For the first 6 weeks, use baby shampoo only and gently wash your hair and the incision. Then rinse with water. When drying off, use a clean towel. Very gently pat the wound dry. Do not rub with a towel. It is also okay to let the wound air dry. Do not use a blow dryer. If you wound is closed with sutures or marine, they need to be removed in 10 to 14 days. documented in this encounter [facility] 10-25-2023 Nurse Note Update to plan of care / discharge plan. Patient is in surgery today. PCRM unable to complete initial assessment at this time. Discharge needs and disposition pending assessment postoperatively. PCRM will continue to follow patient with multidisciplinary team for ongoing assessment of needs and discharge planning. For evening and weekend discharge assistance please page the component design engineer PCRM at [phone]. Sena GARCIA RN-, [facility] Patient Care Winding Inspector Pager: [phone] [facility] 10-25-2023 Nurse Surgical operation note [phone] Family notified of surgery start 939 Family updated [phone] Handoff report sheet sent to ICU 1042 Handoff Report called to [facility] 1130 ICU notified of transport from OR 1031 Family Waiting Desk called to place family in a consult room per MD request\ Rm [phone] Family waiting called on transport to ICU [facility] 10-25-2023 Nurse Note [phone] Family notified of surgery start 939 Family updated 935 Handoff report sheet sent to ICU 1042 Handoff Report called to [facility] 1130 ICU notified of transport from OR 1031 Family Waiting Desk called to place family in a consult room per MD request\ Rm [phone] Family waiting called on transport to ICU documented in this encounter [facility] 10-25-2023 History and physical note PERIOPERATIVE SURGICAL HISTORY AND PHYSICAL UPDATE Pre-op Diagnoses: Brain tumor [D49.6] Procedure(s): EXCISION BRAIN TUMOR BY CRANIOTOMY EVALUATION MRI BRAIN INTRAOPERATIVE MONITORING NEUROPHYSIOLOGY INTRAOPERATIVE ADD-ON PX Surgeon(s): Surgeon(s) and Role: * Cherie Santamaria MD - Primary History and Physical Update: Height 1.6 m (5' 3 ), weight 92.1 kg (203 lb). I have reviewed MarianoNakul Gallardo's medical, surgical and other pertinent history, and I have updated the medication and allergy information in the computerized patient record. I have examined the patient, reviewed the previous H&P completed on date (10/13/2023) and there are no changes. Exam NAD AOx3 PERRL EOMI FS TM FCx4 5/5 BUE 5/5 BLE SILT Today's surgical history and physical update was completed by Kelvin Davis MD, 10/25/2023, 6:53 AM. - to OR [facility] Work Phone: 10-25-2023 History and physical note PERIOPERATIVE SURGICAL HISTORY AND PHYSICAL UPDATE Pre-op Diagnoses: Brain tumor [D49.6] Procedure(s): EXCISION BRAIN TUMOR BY CRANIOTOMY EVALUATION MRI BRAIN INTRAOPERATIVE MONITORING NEUROPHYSIOLOGY INTRAOPERATIVE ADD-ON PX Surgeon(s): Surgeon(s) and Role: * Cherie Santamaria MD - Primary History and Physical Update: Height 1.6 m (5' 3 ), weight 92.1 kg (203 lb). I have reviewed Ricardo Gallardo's medical, surgical and other pertinent history, and I have updated the medication and allergy information in the computerized patient record. I have examined the patient, reviewed the previous H&P completed on date (10/13/2023) and there are no changes. Exam NAD AOx3 PERRL EOMI FS TM FCx4 5/5 BUE 5/5 BLE SILT Today's surgical history and physical update was completed by Kelvin Davis MD, 10/25/2023, 6:53 AM. - to OR documented in this encounter [facility] 10-13-2023 History and physical note History of Present Illness Mr. Gallardo is a 37 y.o. 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 which increases his risk for perioperative complications. Name: Ricardo Gallardo Date of Surgery: 10/25/2023 Surgeon: Liban Pre-Op Diagnosis: brain neoplasm- Low grade glioma recurrence Planned Procedure: REDO RIGHT PARIETAL CRANIOTOMY FOR RESECTION OF BRAIN TUMOR Do you take Aspirin? no Does the patient have a central line - no BP 120/78 Pulse 75 Temp 97.3 F (36.3 C) Resp 16 Ht 1.6 m (5' 3 ) Wt 91.6 kg (202 lb) SpO2 98% BMI 35.78 kg/m Smoking Status Never ANESTHESIA/AIRWAY Anesthesia alerts - DINORAH risk, congential nystagnus Personal history of problems related to anesthesia (ex.Malignant Hyperthermia): no Family History of problems related to anesthesia (ex.Malignant Hyperthermia: no Pacer/AICD/DBS: no Glaucoma: no Beta Ford: no Diabetic Mellitus: no DINORAH: no STOP-BANG Risk Assessment (3 or more YES responses is high risk) Do you snore - No Are you frequently tired during the day? - No Have you been observed gasping or choking while asleep? - No Do you have high blood pressure? - No Age more than 50? - No Gender male? - Yes Neck circumference greater than 40 cm? - Yes Neck Circumference (cm): 43 BMI more then 35? - Yes Body mass index is 35.78 kg/m . Mallampati class - 3 TM Distance - 3 FB Oral Opening - 3 FB Teeth - normal dentition for age Cervical range of motion - within normal limits Neck circumference - Neck Circumference (cm): 43 Allergies and adverse drug reactions No Known Allergies Anesthesia/Airway A/P - no problems anticipated Intubation Date/Time: 09/01/2016 10:02 AM Airway not difficult General Information and Staff Patient location during procedure: OR Room: Attending: CHANDANA GOMES Indications and Patient Condition Indications for airway management: general anesthesia Spontaneous ventilation: present Sedation level: general anesthesia Preoxygenated: yes Patient position: sniffing Manual Inline Stabilization not maintained throughout Mask difficulty assessment: 1 - vent by mask Final Airway Details Final airway type: endotracheal airway Successful airway: Alexandro Flex-Tip ETT size: 7.0 mm Cuffed: yes Endotracheal tube insertion site: oral Successful intubation technique: video laryngoscopy Video Laryngoscope: IRIS-RFID Blade: Karla Blade size: #3 Facilitating devices/methods: intubating stylet Cormack-Lehane Classification: grade I - full view of glottis Placement verified by: CO2 detection and visualization through the cords Tube secured: 21 CM at the teeth Tube Secured with: tape Cuff volume (mL): 7 Number of attempts at approach: 1 Number of other approaches attempted: 0 CARDIOVASCULAR Cardiovascular A/P - This patient is in a low risk category as calculated using the RCRI. RCRI score is 0 points placing the patient at a 4% cardiac risk in the perioperative setting Functional status - : moderate - can easily walk up 14 steps, moved 3 tons of bricks by hand. He denies chest pain or shortness of breath. BP Readings from Last 3 Encounters: 10/13/23 133/83 10/13/23 120/78 10/13/23 123/76 PLAN: he has no history of coronary artery disease or cerebral vascular accident. No cardiovascular stents. No further testing is indicated. CARDIAC TESTING: ECG - 10/13/2023, normal sinus rhythm , rate 75, possible LVH, may be normal variant PULMONARY Social History Tobacco Use Smoking Status Never Smokeless Tobacco Never Pulmonary A/P - no history of lung disease. The patient does not vape. SUBSTANCE ABUSE Social History Substance and Sexual Activity Alcohol Use Yes Comment: Social Drinker Social History Substance and Sexual Activity Drug Use No Substance Abuse A/P - 2 beers a day on average or less. Pt advised to avoid illicit Rx use, substance abuse, stop smoking leading up to day of surgery due to delayed wound healing. CLOTTING/BLEEDING History of DVT/PE - no Are you a Jehovah Witness? - no In case of surgeons plan or unforseen emergency, are you okay with receiving blood products? - yes Clotting Bleeding A/P - no issues, Recommend standard DVT/PE prophylaxis postoperatively. DIABETES Diabetes A/P - none No results found for: HGBA1C ADDITIONAL DIAGNOSES OF CONCERN MEDICATIONS Current Outpatient Medications Medication Sig cholecalciferol 25 MCG (1000 UNIT) tablet Take 1 tablet by mouth daily every morning. Levetiracetam 1000 MG tablet Take 1 tablet by mouth 2 times daily. ergocalciferol 11428 UNITS Cap Take 1 capsule by mouth once a week. (Patient not taking: Reported on 10/13/2023) LORazepam 1 MG tablet Take one tablet if there is a warning for a seizure but only if you are awake and alert and able to swallow. (Patient not taking: Reported on 10/13/2023) Medication A/P - Instructions for preoperative medications given to the patient in AVS. LABS Orders Placed This Encounter SCREEN: MRSA/MSSA XR CHEST PA AND LATERAL 2 VIEWS CBC, EDIF, PLATELET CHEM 6 (LYTES, BUN CREA) PROTIME-INR PTT WITH MIXING STUDY GLUCOSE PTT W/MIXING STUDY PERF ONLY EXTRA LIGHT BLUE TOP DOUBLE SPIN CBC AND ELECTRONIC DIFF CBC, EDIF, PLATELET CHEM 7 (LYTES,BUN,CREA,GLUC) PROTIME-INR PTT WITH MIXING STUDY PTT W/MIXING STUDY PERF ONLY EXTRA LIGHT BLUE TOP DOUBLE SPIN CBC AND ELECTRONIC DIFF Type and Cross -Preadmission PREPARE TO TRANSFUSE OR RED BLOOD CELLS: 1 Units Type and Cross -Preadmission URINALYSIS REFLEX TO CULTURE URINALYSIS REFLEX TO CULTURE PERFORMABLE EXTRA MICRO AZ ECG, CLINIC PERFORMED Lab A/P - Labs ordered and reviewed. Lab Results Component Value Date ABORHDTYPE O NEG 10/13/2023 Lab Results Component Value Date SODIUM 138 10/13/2023 POTASSIUM 4.0 10/13/2023 CHLORIDE 102 10/13/2023 CO2 29 10/13/2023 BUN 11 10/13/2023 CREATSERUM 0.98 10/13/2023 Lab Results Component Value Date WBC 6.75 10/13/2023 HGB 15.3 10/13/2023 HCT 43.1 10/13/2023 PLATELET 215 10/13/2023 MCV 86.0 10/13/2023 No results found for: TSH , DPK12VBQ , WQS96OWA , TSHBASELINE , TSHULTRASEN , T3FREE , I5QSPSGNV , O2SXMAK , H5DGZXPB , T4FREE , TPOAB Lab Results Component Value Date GLUCOSE 101 (H) 10/13/2023 Coags - within normal limits UA - no signs of infection OPTIMIZED AT THIS TIME - MRSA screen pending Does pt meet criteria for liberalized NPO? no. If no, why? ASA 3 or more DO Rachele Wilkerson [facility] Perioperative Clinic [facility] [address] [facility] Review of Systems Review of Systems Constitutional: Negative for chills and fever. He denies all symptoms. HENT: Negative for nosebleeds and sore throat. Eyes: Negative for pain. Respiratory: Negative for cough. Cardiovascular: Negative for chest pain, palpitations and leg swelling. Gastrointestinal: Negative for constipation, nausea and vomiting. Endocrine: Negative for polydipsia. Genitourinary: Negative for dysuria and urgency. Musculoskeletal: Negative for myalgias and neck pain. Skin: Negative for rash. Neurological: Negative for dizziness, seizures and headaches. Hematological: Does not bruise/bleed easily. Psychiatric/Behavioral: Negative for suicidal ideas. Physical Examination (PHYSEXAM)Physical Exam Vitals and nursing note reviewed. Constitutional: General: He is not in acute distress. Appearance: He is not toxic-appearing. HENT: Head: Normocephalic and atraumatic. Nose: Nose normal. Eyes: General: Right eye: No discharge. Pupils: Pupils are equal, round, and reactive to light. Neck: Trachea: Trachea normal. Cardiovascular: Rate and Rhythm: Normal rate and regular rhythm. Pulmonary: Effort: Pulmonary effort is normal. No respiratory distress. Chest: Chest wall: No tenderness. Abdominal: Palpations: Abdomen is soft. There is no mass. Tenderness: There is no abdominal tenderness. There is no guarding or rebound. Hernia: No hernia is present. Musculoskeletal: General: No deformity. Skin: General: Skin is warm and dry. Nails: There is no clubbing. Neurological: General: No focal deficit present. Mental Status: He is oriented to person, place, and time. Mental status is at baseline. Psychiatric: Mood and Affect: Mood normal. Behavior: Behavior normal. Thought Content: Thought content normal. Blood pressure 120/78, pulse 75, temperature 97.3 F (36.3 C), resp. rate 16, height 1.6 m (5' 3 ), weight 91.6 kg (202 lb), SpO2 98 %. Past Medical History: Diagnosis Date Brain tumor Oligoastrocytoma Nystagmus, congenital Seizure Vitamin D deficiency Past Surgical History: Procedure Laterality Date EXCISION BRAIN TUMOR BY CRANIOTOMY Right 09/01/2016 Laterality: Right; Surgeon: Cherie Santamaria MD; Location: [facility] [place] MAIN OR TUMOR REMOVAL Resection of Brain Tumor Patient Care Team: Nithin Davenport DO as PCP - General (Internal Medicine) Cherie Santamaria MD as Neurosurgeon (Neurological Surgery) Family History Problem Relation Age of Onset Diabetes Mother Myocardial Infarction Father Social History Socioeconomic History Marital status: Tobacco Use Smoking status: Never Smokeless tobacco: Never Substance and Sexual Activity Alcohol use: Yes Comment: Social Drinker Drug use: No Sexual activity: Yes Partners: Female [facility] 10-13-2023 History and physical note History of Present Illness Mr. Gallardo is a 37 y.o. 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 which increases his risk for perioperative complications. Name: Ricardo Gallardo Date of Surgery: 10/25/2023 Surgeon: Liban Pre-Op Diagnosis: brain neoplasm- Low grade glioma recurrence Planned Procedure: REDO RIGHT PARIETAL CRANIOTOMY FOR RESECTION OF BRAIN TUMOR Do you take Aspirin? no Does the patient have a central line - no BP 120/78 Pulse 75 Temp 97.3 F (36.3 C) Resp 16 Ht 1.6 m (5' 3 ) Wt 91.6 kg (202 lb) SpO2 98% BMI 35.78 kg/m Smoking Status Never ANESTHESIA/AIRWAY Anesthesia alerts - DINORAH risk, congential nystagnus Personal history of problems related to anesthesia (ex.Malignant Hyperthermia): no Family History of problems related to anesthesia (ex.Malignant Hyperthermia: no Pacer/AICD/DBS: no Glaucoma: no Beta Ford: no Diabetic Mellitus: no DINORAH: no STOP-BANG Risk Assessment (3 or more YES responses is high risk) Do you snore - No Are you frequently tired during the day? - No Have you been observed gasping or choking while asleep? - No Do you have high blood pressure? - No Age more than 50? - No Gender male? - Yes Neck circumference greater than 40 cm? - Yes Neck Circumference (cm): 43 BMI more then 35? - Yes Body mass index is 35.78 kg/m . Mallampati class - 3 TM Distance - 3 FB Oral Opening - 3 FB Teeth - normal dentition for age Cervical range of motion - within normal limits Neck circumference - Neck Circumference (cm): 43 Allergies and adverse drug reactions No Known Allergies Anesthesia/Airway A/P - no problems anticipated Intubation Date/Time: 09/01/2016 10:02 AM Airway not difficult General Information and Staff Patient location during procedure: OR Room: Attending: CHANDANA GOMES Indications and Patient Condition Indications for airway management: general anesthesia Spontaneous ventilation: present Sedation level: general anesthesia Preoxygenated: yes Patient position: sniffing Manual Inline Stabilization not maintained throughout Mask difficulty assessment: 1 - vent by mask Final Airway Details Final airway type: endotracheal airway Successful airway: Alexandro Flex-Tip ETT size: 7.0 mm Cuffed: yes Endotracheal tube insertion site: oral Successful intubation technique: video laryngoscopy Video Laryngoscope: IRIS-RFID Blade: Karla Blade size: #3 Facilitating devices/methods: intubating stylet Cormack-Lehane Classification: grade I - full view of glottis Placement verified by: CO2 detection and visualization through the cords Tube secured: 21 CM at the teeth Tube Secured with: tape Cuff volume (mL): 7 Number of attempts at approach: 1 Number of other approaches attempted: 0 CARDIOVASCULAR Cardiovascular A/P - This patient is in a low risk category as calculated using the RCRI. RCRI score is 0 points placing the patient at a 4% cardiac risk in the perioperative setting Functional status - : moderate - can easily walk up 14 steps, moved 3 tons of bricks by hand. He denies chest pain or shortness of breath. BP Readings from Last 3 Encounters: 10/13/23 133/83 10/13/23 120/78 10/13/23 123/76 PLAN: he has no history of coronary artery disease or cerebral vascular accident. No cardiovascular stents. No further testing is indicated. CARDIAC TESTING: ECG - 10/13/2023, normal sinus rhythm , rate 75, possible LVH, may be normal variant PULMONARY Social History Tobacco Use Smoking Status Never Smokeless Tobacco Never Pulmonary A/P - no history of lung disease. The patient does not vape. SUBSTANCE ABUSE Social History Substance and Sexual Activity Alcohol Use Yes Comment: Social Drinker Social History Substance and Sexual Activity Drug Use No Substance Abuse A/P - 2 beers a day on average or less. Pt advised to avoid illicit Rx use, substance abuse, stop smoking leading up to day of surgery due to delayed wound healing. CLOTTING/BLEEDING History of DVT/PE - no Are you a Jehovah Witness? - no In case of surgeons plan or unforseen emergency, are you okay with receiving blood products? - yes Clotting Bleeding A/P - no issues, Recommend standard DVT/PE prophylaxis postoperatively. DIABETES Diabetes A/P - none No results found for: HGBA1C ADDITIONAL DIAGNOSES OF CONCERN MEDICATIONS Current Outpatient Medications Medication Sig cholecalciferol 25 MCG (1000 UNIT) tablet Take 1 tablet by mouth daily every morning. Levetiracetam 1000 MG tablet Take 1 tablet by mouth 2 times daily. ergocalciferol 65128 UNITS Cap Take 1 capsule by mouth once a week. (Patient not taking: Reported on 10/13/2023) LORazepam 1 MG tablet Take one tablet if there is a warning for a seizure but only if you are awake and alert and able to swallow. (Patient not taking: Reported on 10/13/2023) Medication A/P - Instructions for preoperative medications given to the patient in AVS. LABS Orders Placed This Encounter SCREEN: MRSA/MSSA XR CHEST PA AND LATERAL 2 VIEWS CBC, EDIF, PLATELET CHEM 6 (LYTES, BUN CREA) PROTIME-INR PTT WITH MIXING STUDY GLUCOSE PTT W/MIXING STUDY PERF ONLY EXTRA LIGHT BLUE TOP DOUBLE SPIN CBC AND ELECTRONIC DIFF CBC, EDIF, PLATELET CHEM 7 (LYTES,BUN,CREA,GLUC) PROTIME-INR PTT WITH MIXING STUDY PTT W/MIXING STUDY PERF ONLY EXTRA LIGHT BLUE TOP DOUBLE SPIN CBC AND ELECTRONIC DIFF Type and Cross -Preadmission PREPARE TO TRANSFUSE OR RED BLOOD CELLS: 1 Units Type and Cross -Preadmission URINALYSIS REFLEX TO CULTURE URINALYSIS REFLEX TO CULTURE PERFORMABLE EXTRA MICRO AZ ECG, CLINIC PERFORMED Lab A/P - Labs ordered and reviewed. Lab Results Component Value Date ABORHDTYPE O NEG 10/13/2023 Lab Results Component Value Date SODIUM 138 10/13/2023 POTASSIUM 4.0 10/13/2023 CHLORIDE 102 10/13/2023 CO2 29 10/13/2023 BUN 11 10/13/2023 CREATSERUM 0.98 10/13/2023 Lab Results Component Value Date WBC 6.75 10/13/2023 HGB 15.3 10/13/2023 HCT 43.1 10/13/2023 PLATELET 215 10/13/2023 MCV 86.0 10/13/2023 No results found for: TSH , TPU58KVZ , MAF84XBY , TSHBASELINE , TSHULTRASEN , T3FREE , B1HFMDVMY , C9NMDQR , N2ZHEDQN , T4FREE , TPOAB Lab Results Component Value Date GLUCOSE 101 (H) 10/13/2023 Coags - within normal limits UA - no signs of infection OPTIMIZED AT THIS TIME - MRSA screen pending Does pt meet criteria for liberalized NPO? no. If no, why? ASA 3 or more DO Rachele Wilkerson [facility] Perioperative Clinic [facility] [address] [place] [address] Review of Systems Review of Systems Constitutional: Negative for chills and fever. He denies all symptoms. HENT: Negative for nosebleeds and sore throat. Eyes: Negative for pain. Respiratory: Negative for cough. Cardiovascular: Negative for chest pain, palpitations and leg swelling. Gastrointestinal: Negative for constipation, nausea and vomiting. Endocrine: Negative for polydipsia. Genitourinary: Negative for dysuria and urgency. Musculoskeletal: Negative for myalgias and neck pain. Skin: Negative for rash. Neurological: Negative for dizziness, seizures and headaches. Hematological: Does not bruise/bleed easily. Psychiatric/Behavioral: Negative for suicidal ideas. Physical Examination (PHYSEXAM)Physical Exam Vitals and nursing note reviewed. Constitutional: General: He is not in acute distress. Appearance: He is not toxic-appearing. HENT: Head: Normocephalic and atraumatic. Nose: Nose normal. Eyes: General: Right eye: No discharge. Pupils: Pupils are equal, round, and reactive to light. Neck: Trachea: Trachea normal. Cardiovascular: Rate and Rhythm: Normal rate and regular rhythm. Pulmonary: Effort: Pulmonary effort is normal. No respiratory distress. Chest: Chest wall: No tenderness. Abdominal: Palpations: Abdomen is soft. There is no mass. Tenderness: There is no abdominal tenderness. There is no guarding or rebound. Hernia: No hernia is present. Musculoskeletal: General: No deformity. Skin: General: Skin is warm and dry. Nails: There is no clubbing. Neurological: General: No focal deficit present. Mental Status: He is oriented to person, place, and time. Mental status is at baseline. Psychiatric: Mood and Affect: Mood normal. Behavior: Behavior normal. Thought Content: Thought content normal. Blood pressure 120/78, pulse 75, temperature 97.3 F (36.3 C), resp. rate 16, height 1.6 m (5' 3 ), weight 91.6 kg (202 lb), SpO2 98 %. Past Medical History: Diagnosis Date Brain tumor Oligoastrocytoma Nystagmus, congenital Seizure Vitamin D deficiency Past Surgical History: Procedure Laterality Date EXCISION BRAIN TUMOR BY CRANIOTOMY Right 09/01/2016 Laterality: Right; Surgeon: Cherie Santamaria MD; Location: [facility] MA[facility] OR TUMOR REMOVAL Resection of Brain Tumor Patient Care Team: Nithin Davenport DO as PCP - General (Internal Medicine) Cherie Santamaria MD as Neurosurgeon (Neurological Surgery) Family History Problem Relation Age of Onset Diabetes Mother Myocardial Infarction Father Social History Socioeconomic History Marital status: Tobacco Use Smoking status: Never Smokeless tobacco: Never Substance and Sexual Activity Alcohol use: Yes Comment: Social Drinker Drug use: No Sexual activity: Yes Partners: Female documented in [facility]23 Instructions Clemente Delgado LPN - 10/13/2023 2:15 PM EST Patient Medication Instructions: On the morning of your surgery only take the following medications with a small amount of water: levetiracetam Do not use aspirin starting 10 days prior to surgery. If you use an Inhaler/Inhalers on a daily basis, then use your inhaler on the morning of surgery. Refrain from smoking and vaping at least 24 hours prior to surgery. - Do NOT take Herbal Medication (including multi-vitamin, fish oil (Mermentau-3), garlic, Glucosamine - Chondroitin ,gingko, ginseng, Vitamin E, probiotics) vitamins and supplements 2 weeks before surgery, unless otherwise instructed. - Do NOT take Excedrin, ibuprofen, Advil, Celebrex, Voltaren (Diclofenac), Motrin, naproxen, or Aleve, Mobic (Meloxicam) for the 7-14 days before surgery. Acetaminophen (Tylenol) is ok to take up until the day of surgery. Patient Pre-Operative Instructions: Diet Instructions: -NO food or drink after 11 pm the night before surgery except for enough water to take your medications. (No Candy, Mints and/or Gum). Follow all instructions you received from your surgical team regarding nutritional shakes. - Do NOT wear any hearing aids, jewelry, watches, rings, hairpieces, makeup, glasses or contact lenses with you into your surgery. - Shower the night before and the morning of surgery. - Do NOT shave, or pluck hair from anywhere near the surgical site one week prior to surgery. - Madison your teeth and rinse your mouth the morning of surgery. - Do NOT bring your dentures or partials with you into surgery. They may be lost. Give them to someone to bring to you after surgery. If you are unable to complete your scheduled testing or appointments made by [facility] please contact [facility] at [phone]. Failure to do so could delay or cancel your surgery. If you become ill, develop a fever, cough, or any type of infection within 14 days of your scheduled surgery, please call the surgeon's office. You may need to have your surgery moved, as we would not want to put you at risk for complications due to an illness. If you are placed on Antibiotics within 1 week of surgery, please notify our team immediately. - If you have Sleep apnea and have a CPAP or BIPAP, then bring your CPAP mask and machine with you to the hospital. To lessen your chance of getting an infection after your surgery, you will need to wash your skin with a special soap called 4% Chlorhexidine Gluconate (CHG) before your surgery. Your nurse has given you CHG soap today and written instructions; Getting Your Skin Ready for Surgery . Please review the instructions carefully prior to your surgery. Patient identified as being at high risk for sleep apnea. Patient education material for obstructive sleep apnea given and reviewed. Today we completed a nasal swab culture to check for a specific bacteria called MRSA or MSSA. This is a bacteria that can live in the nose and cause no symptoms or illness. If your culture is positive, we will contact you and send in a prescription for mupirocin to your pharmacy. You will be instructed to rub the ointment into each of your nostrils twice a day for 5 days prior to your surgery. Your nurse will also swab your nose with a betadine swab in the preoperative area on your day of surgery. Please notify the nurse if you have an iodine allergy. Please contact Medical Information Management Department for all records requests. 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 He had resection of a right parietal mass at the [facility] nd the pathology was consistent with astrocytoma, WHO Grade II. The patient was noted to have some imaging changes in 2015 and a recommendation to undergo treatment with radiation therapy followed by procarbazine, lomustine and vincristine was made. He came to the [facility] for 2nd opinion.His case was discussed at tumor board. Recommendation for repeat surgery was made. The reasons were twofold: It was felt that another debulking operation would result in a low risk situation and possibly allow for another period of observation. Secondly, based on the imaging appearance, there was discussion about the changes possibly representing postoperative gliosis. A repeat surgery was performed on September 01, 2016. The pathology showed reactive changes. The patient was advised to go again on clinical and imaging surveillance. The patient was seen for follow-up on June 05, 2018. He reported some neck pain starting about 2 weeks prior to the appointment without radiation to the upper extremities. This was intermittent andseem to be associated with rather significant increase in his activity due to his [employer] business. A brain MRI was performed on 06-05-2018 and the following report was noted: Stable postsurgical changes of right parietal brain tumor resection. Surrounding FLAIR signal abnormality is stable from 12/13/2017, though is again noted to have increased compared to 12/13/2016. No new or progressive abnormality. 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 The patient was provided with a follow-up appointment on October 19, 2018. He would have a follow-up MRI on the same date. He was aware that he needed to present to the emergency department with any new acute symptoms such as headache or seizures. He was also advised that if the neck pain did not resolve and especially if it worsened he would let us know so that we could request imaging of the neck with his next visit. We also discussed potentially referring the patient to [facility]. The patient and his were agreeable with this plan. The patient was seen in the Neuro-Oncology Clinic on October 19, 2018 and was noted to be asymptomatic. A brain MRI was performed on 10-19-2018 and appeared stable to my review. He was to return to Clinic on 02-22-2019 and a brain MRI would be performed with return visit. The patient was also advised to continue levetiracetam 1000 mg twice a day. The patient returned to clinic on 04-30-2019 for a follow-up visit. A complete review of systems including a detailed neurologic review was negative for new symptoms. The patient was working full-time without problems. A brain MRI was performed on April 30, 2019. I reviewed this study and noted the following report: Stable, postoperative changes in the right parietal lobe at the site of prior tumor resection. No evidence of local tumor recurrence. 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 A return to clinic appointment was be set for September 03, 2019 with a brain MRI planned to be performed on the date of this visit. He was on levetiracetam 1000 mg 2 times daily and was encouraged to continue this medication indefinitely. The patient was called on April 17, 2020, for a video follow-up visit. He was accompanied by his . Mrs Gallardo reported that they could not make the visit planned for August 2019 due to the fact that the patient lost his insurance. He still had not re-established payor coverage and was essentially paying out of pocket at this point. He denied any new neurologic complaints. He denied seizure activity, significant headaches or other problems. He was working full- time on his [employer] business. A brain MRI was performed on April 09, 2020. I reviewed this study and noted the following report: Postoperative changes following previous surgical resection in the right parietal lobe. Nonenhancing FLAIR signal around the resection site is stable since the most recent MRI but has progressed slightly since older exams from 2018. There is a tiny linear focus of enhancement along the medial resection margin which appears new since previous MRIs. Continued close follow-up recommended . We discussed a close follow-up MRI to assess the small linear focus of enhancement along the medial resection margin. This change was slight and of uncertain significance. However, the differential diagnosisincluded early progressive disease. The next scan was to be performed in approximately 6 weeks. Thepatient was to continue on his anticonvulsant with no changes. He was not experiencing any side effects from this medication and he had not had any breakthrough seizure activity. The patient returned to Clinic on September 30, 2022 for a follow up visit. He was asymptomatic and accompanied by his and cousin. A brain MRI with perfusion was completed on 09-30-2022. I reviewed the study and noted the following report: Redemonstration of postsurgical changes involving the right parietal region. Small subtle area of contrast enhancement along the anteromedial margin of the surgical defect is unchanged. HyperintenseFLAIR abnormality involving the right parietal parenchyma adjacent to the surgical defect is unchanged compared to the most recent study although mildly increased when compared to more remote studies. No acute intracranial process noted. No evidence of an acute infarct . The patient was to have repeat imaging in early January 2022 and asked for a Tele Health visit after the MRI on that date. He wasalso to continue anticonvulsant therapy. The patient was called on February 24, 2023 for a follow up visit. He preferred telephone to video contact. His was present for the conversation. He had no complaints. A brain MRI performed on 02-20-2023 was associated with the following report: Redemonstration of postsurgical changes involving the right parietal region. Increased FLAIR signal abnormality in the right parietal parenchyma superolateral to the surgical defect is associated with increased gyral expansion concerning for neoplastic disease progression. Additional hyperintense FLAIR abnormality within the right parietal parenchyma anterior, medial and inferior to the surgical defect which is unchangedcompared with the more recent studies although increased when compared with more remote studies may represent of postsurgical gliotic changes although nonspecific as previously described. Stable size and appearance of focal T1 hyperintensity within the posterior aspect of the pituitary/sella . The imaging was reviewed at Tumor Board earlier on the same day asthe visit and there was consensus that surgery should be offered again for resection of the progressive FLAIR signal abnormalities and establishment of the diagnosis (more gliosis versus tumor progression). The patient agreed to a visit with Dr Santamaria in about a month as discussed at Tumor Board. Hewas to continue anticonvulsant therapy. Interval history: The patient returns to the Neuro-oncology Clinic today, March 31, 2023 for a follow up visit. He is accompanied by his . He is asymptomatic. A brain MRI with perfusion was completed on March 27, 2023 and the impression from this study is discussed below. REVIEW OF SYSTEMS: A complete review of systems was otherwise negative PHYSICAL EXAMINATION: KARNOFSKY PERFORMANCE STATUS: 100 General examination: Young male who does not appear to be in any acute distress. Psychiatric evaluation: mood and affect are appropriate Head & Neck: the head is atraumatic and the neck is supple Musculoskeletal: no joint swelling or deformity Neurologically, the patient is conscious, alert and oriented. No focal cranial nerve or motor deficits are seen with the exception of nystagmus on gaze to the left. No cerebellar or meningeal signs are noted Skin: no rashes or lesions are noted NEUROIMAGING: A brain MRI with perfusion was completed on 03-27-2023. I reviewed the study and noted the following report: In comparison to previous MRI from February 20, 2023 there is no significant interval change in the nodular nonenhancing abnormality along the superior margin of the resection cavity involving the right parietal lobe. However, when compared to prior examinations dating as back as January 07, 2022, this area has been gradually increasing in size. No contrast enhancing lesion is identified. LABORATORY: None DIAGNOSIS: Astrocytoma, MEDICAL ECONOMICS CONSULTANT WHO grade 2: There are imaging changes suggestive of progressive disease. The patient has had treatment related changes noted on re- resection of progressive FLAIR changes in the past. Seizure disorder: currently stable MANAGEMENT: The patient was discussed at Tumor Board today and there was consensus that surgery for resection of the progressive FLAIR abnormality should be considered. The patient had already been scheduled to see Dr Santamaria today. Will schedule for a brain MRI and a follow up visit in 3 months in case the patient declines surgery. Jaziel Urban MD Ethics Manager in Neurology Division of Neuro-oncology [address] [place] [address] documented in this [facility]06-15-2023 Instructions* Patient Instructions* Fawn Newell RN - 03/31/2023 10:30 AM EDT our Neuro-Oncology Team [facility] [address] [place] [address] Dr. Jaziel Urban M.D. Nurse Practitioner: Nithin Diaz CNP Primary Nurse: RADHA Anderson, RN, RADHA Silva, salesperson shoes Office [employer]OLF [employer] Sales Specialist Neuro-Oncology Clinic Hours: Tuesday-Tuesday 8:30 - 4:30 Neuro-Oncology Office Information Regular business hours are Tuesday through Tuesday 8:30 a.m. to 4:30 p.m. Please call [phone] for information related to clinic appointments, scheduled tests, or for general office related questions or concerns. Messages for the physicians, nurses and other team members can be taken at this phone number and will be routed as appropriate. Emergency assistance is available after hours by calling the office at [phone] and the answering service will reach your doctor or the physician component design engineer. Please allow at least 48 hours for Prescription refill transactions. Please allow 10-14 business days for completion of FMLA and other disability paperwork. We will mail the completed paperwork to you or you may pick it up at the desk. It is your responsibility to return the FMLA or disability paperwork to your employer. If you need to mail a CD or paperwork to the office please mail to : NEURO-ONCOLOGY DEPARTMENT [address] [place] [address] Patient education videos are available on [employer] website. These videos may help you to better understand your cancer or cancer treatments. The videos also give tips on how to care for yourself to help you feel your best. Here is the link to watch these videos: [email or web address]. [employer] [facility] Tumor Support [facility] Facilitators: NEIL Auguste and VALERI Razo, ROLF-S Next Meeting: Every Tuesday of the month 3:00 pm- 4:00 pm. This event is now virtual and can be accessed through [facility]. Please visit [email or web address] to register or call [employer] at [phone] for more information. The Brain Tumor support group is available for anyone diagnosed with a brain tumor and their support person. This is an opportunity for those impacted by a brain tumor to offer support to one anotherby sharing their experiences and learning more about life after diagnosis. documented in this [facility]06-15-2023 History of Present illness Narrative* Anibal Fortune RN - 03/31/2023 10:00 AM EDT Nurse Note: Review of Systems Constitutional: Negative for chills, fatigue and fever. HENT: Negative for hearing loss and tinnitus. Eyes: Negative for visual disturbance. Respiratory: Negative for cough and shortness of breath. Cardiovascular: Negative for chest pain and leg swelling. Gastrointestinal: Negative for constipation, diarrhea, nausea and vomiting. Endocrine: Negative for cold intolerance, heat intolerance, polydipsia, polyphagia and polyuria. Genitourinary: Negative for difficulty urinating, dysuria, frequency and urgency. Musculoskeletal: Negative for back pain and neck pain. Skin: Negative for color change, pallor, rash and wound. Neurological: Negative for dizziness, tremors, seizures, speech difficulty, weakness, light-headedness, numbness and headaches. Hematological: Does not bruise/bleed easily. Psychiatric/Behavioral: Negative for confusion and decreased concentration. The patient is not nervous/anxious. Nursing Assessment: Physical Exam * Ivis Guaman, PLUMBER GASFITTER-METER SUPERVISOR - 03/31/2023 10:00 AM EDT [facility] Dr. Cherie Santamaria MD Professor, Department of Neurosurgery Director of Neurosurgical Oncology [facility] [place] [address] ESTABLISHED PATIENT VISIT NOTES CHIEF COMPLAINT Diagnosis: 1. Right parietal, oligoastrocytoma, WHO grade 2. MGMT methylated; IDH1 mutation; 1p/19q intact Ricardo Gallardo is a 37 y.o. male patient with oligoastrocytoma, WHO grade 2 that returns today to [facility] for a follow-up visit. Interval History: Pt presents to clinic accompanied by his . He has no major complaints and denies any neurologicsymptoms. Oncology History Right parietal, oligoastrocytoma, WHO grade 2. MGMT methylated; IDH1 mutation; 1p/19q intact; 09/29/2014 Surgery Right parietal, oligoastrocytoma, WHO grade 2. MGMT methylated; IDH1 mutation; 1p/19q intact; 09/01/2016 Surgery R parietal craniotomy. Pathology: Reactive changes, No definite tumor (see comment). Comment: Sections show fragments of stone and white matter, foamy macrophages, gliosis and other reactive changes. Immunohistochemical stains were performed on A1-A3 at [facility]. IDH1 R132H shows no definite positivityin A1, A2 and A3. The Ki-67 labeling index in A1 is less than 1% by manual assessment. PHYSICAL ASSESSMENT BP 114/75 Pulse 68 Temp 97.6 F (36.4 C) Resp 16 Wt 89.5 kg (197 lb 6.4 oz) SpO2 98% BMI33.88 kg/m Smoking Status Never NEUROLOGICAL: Alert and oriented x 4. II: Visual acuity intact, no diplopia III, IV, : PERRLA, EOM intact, + nystagmus V: Corneal reflexes intact, facial sensation intact bilaterally to touch VII: Face symmetrical with good strength bilaterally VIII: Hearing intact bilaterally IX: Palate movement equal bilaterally XI: Shoulder shrug equal bilaterally XII: Tongue midline Speech: Clear Neck: full ROM Gait: steady Balance: Performs tandem without difficulty Cerebellar: no tremor or dysmetria Sensory: intact symmetrically to light touch in bilateral upper and lower extremities M/S: UE Strength: PROVIDER RELATIONS ADVOCATE BICEPS TRICEPS DELTS INTRINSICS W.EX LEFT 5 5 5 5 5 5 RIGHT 5 5 5 5 5 5 LE Strength: HF KF KE DF PF EHL LEFT 5 5 5 5 5 5 RIGHT 5 5 5 5 5 5 GENERAL: Sitting upright in exam chair, NAD PSYCH: calm, cooperative. Insight and judgement appropriate. ALLERGIES/ MEDICATIONS No Known Allergies Current Outpatient Medications Medication Sig Dispense Refill ergocalciferol 97141 UNITS Cap take 50,000 Units by mouth once a week.. Levetiracetam 1000 MG tablet Take 1 tablet by mouth 2 times daily. 180 tablet 3 No current facility-administered medications for this visit. IMAGING MRI BRAIN WITH PERFUSION 03/27/2023 IMPRESSION: In comparison to previous MRI from February 20, 2023 there is no significant interval change in the nodular nonenhancing abnormality along the superior margin of the resection cavity involving the right parietal lobe. However, when compared to prior examinations dating as back as January 07, 2022, this area has been gradually increasing in size. No contrast enhancing lesion is identified. BRAIN WITH PERFUSION 02/20/2023 IMPRESSION: 1. Redemonstration of postsurgical changes involving the right parietal region as detailed above. Increased FLAIR signal abnormality in the right parietal parenchyma superolateral to the surgical defect is associated with increased gyral expansion concerning for neoplastic disease progression. 2. Additional hyperintense FLAIR abnormality within the right parietal parenchyma anterior, medial and inferior to the surgical defect which is unchanged compared with the more recent studies although increased when compared with more remote studies may represent of postsurgical gliotic changes although nonspecific as previously described. 3. Stable size and appearance of focal T1 hyperintensity within the posterior aspect of the pituitary/sella as detailed above. Findings discussed with Dr. Urban of the neuro-oncology service on February 21, 2023 at 9:20 AM. ESSION AND PLAN OF CARE Ricardo Gallardo is a 37 y.o. male who was diagnosed with a Right parietal oligoastrocytoma, WHO grade 2. 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 He is status post gross total resection at [facility] (10/04/2014) and repeats resection for subtle progression over time by Dr. Santamaria(09/01/2016). Pathology was consistent with reactive changes. Surveillance MRI Brain w/perfusion completed on 02/20/23 showed increased FLAIR signal abnormality in the right parietal parenchyma superolateral to the surgical defect is associated with increased gyral expansion concerning for neoplasticdisease progression. Pt underwent a short interval MRI Brain w/perfusion completed on 03/27/23 with s table findings compared to the previous MRI from 02/20/23. Pt was discussed at Brain TB today, where surgery for re-resection followed by RT was recommended. Patient returns today to [facility] to discuss surgical interventions. Patient seen and evaluated by myself and , all relevant imaging reviewed. Patient denies new neurological symptoms. Imaging reviewed w/patient. Dr. Santamaria discussed surgical intervention in detail, including the benefits, alternatives,and risks. Pt would like to think about the surgical option discussed and will let us know how he would like to proceed. Patient advised to call with new or worsening neurological symptoms. Patient ag zoraida with the plan. Plan: RTC - PRN. Pt will let us know if he wishes to proceed with surgery Follow up w/Neuro-Onc * Cherie Santamaria MD - 03/31/2023 10:00 AM EDT I saw and examined Ricardo Gallardo today with my FAUSTINO, Ivis Guaman. Ricardo Gallardo is a 37 y.o. male with history of LGG. He was referred for tumor recurrence. I agreewith the history of present illness, past medical history, family history, social history, medication list, allergies listed, and current complaints. I have personally reviewed all labs and radiographs as well as medical records and I confirm the findings noted above. I agree with the assessment and plan as noted above. Awake, alert ox4 eomfull tml fs ma4e 02/18 The imaging reviewed today includes: MRI: In comparison to previous MRI from February 20, 2023 there is no significant interval change in the nodular nonenhancing abnormality along the superior margin of the resection cavity involving the right parietal lobe. However, when compared to prior examinations dating as back as January 07, 2022, this area has been gradually increasing in size. No contrast enhancing lesion is identified. At this time, I feel we should proceed with surgical resection. I discussed with the patient that risks of brain tumor surgery may include bleeding, infection, pneumonia, heart complications, blood clots, post operative pain, neurological deficit, and . The patient is aware of these risks and will think about surgery and let us know how he wants to proceed. The plan was developed mutually at the time of the clinic visit. The nurse practitioner/physician delivery assistant and I have spoken with the patient and provided written and verbal instructions for the patient. The above note has been reviewed and I agree with the assessment and plan. Cherie Santamaria MD [facility] Instructions* Patient Instructions* Iris Mason RN - 03/31/2023 10:00 AM EDT We are here to assist you through your care at [facility] [place]! Your Care Team from today's visit included: Neurosurgeon- Dr. Jonnathan Santamaria Nurse Practitioner- Ivis Guaman, PLUMBER GASFITTER-METER SUPERVISOR Nurse Practitioner- Joe Capone APRN-METER SUPERVISOR Primary Nurse - RADHA Alvarez, RN The Neurosurgery clinic and scheduling staff can be reached at [phone]. Please call if you develop new or worsening symptoms, also with any additional questions regarding your visit today or if you need to contact the doctor. You will speak with a resource engineer, who will take a message and forward it to the clinical team. The primary nurse will return your call within 24 hours, assess your problem, consult with your medical team, and give direction on what should be done. We are not able to accommodate walk-in appointments. This is to provide the best possible care we can to all our patients. For any questions, comments, or concerns during after-hours (past 4:00pm M-F), weekends, and/or during a holiday please call [phone] and speak with the after-hours service. You will be connectedto the neurosurgery resident component design engineer. New or worsening neurological symptoms can include, but are not limited to: weakness, confusion, difficulty walking, vision/hearing/speech changes, seizures or extremity tremors, and persistent headaches. If it is an emergency you will need to go to your local ER. Ask them to fax your records to us so that we can update our team, fax number [phone]. If you experience seizures affecting the whole body, with or with out loss of consciousness, or stroke like symptoms please call [phone] and get evaluated at local Emergency Room. The neurosurgery team typically does not refill medications. Please reach out to your primary care physician for any post-hospital or post- surgical medication refill requests. Family Medical Leave paperwork is available through your human resources department. Please allow 10-14 business days for completion of paperwork from our office. Documentation can be faxed to [phone]. Your feedback is important to our team. You may receive a survey in the mail following today's appointment. We would appreciate if you could take a few minutes to complete the survey and return it inthe envelope provided. Your response will be confidential and used to enhance patient care and address areas of opportunity. Thank you The Oncology Distress Screening, or Patient-Reported Outcomes Measurement Information System (PROMIS) questionnaire, is a validated tool used for recording self-reported measures of global, physical,mental and social health for adults in the general population and those living with a chronic condition. You will receive this questionnaire via [employer]. Please complete so your providers at [facility] can better help you! documented in this [facility] History of Present illness Narrative* Virgen Hyman RN - 09/30/2022 2:30 PM EST Nurse Note: Review of Systems Constitutional: Negative for chills, fatigue and fever. HENT: Negative for hearing loss and tinnitus. Eyes: Negative for visual disturbance. Respiratory: Positive for cough. Negative for shortness of breath. Cardiovascular: Negative for chest pain and leg swelling. Gastrointestinal: Negative for constipation, diarrhea, nausea and vomiting. Genitourinary: Negative for difficulty urinating. Musculoskeletal: Negative for back pain and neck pain. Skin: Negative for rash. Neurological: Negative for dizziness, tremors, seizures, weakness, light- headedness, numbness and headaches. Hematological: Does not bruise/bleed easily. Psychiatric/Behavioral: Negative for confusion and decreased concentration. The patient is not nervous/anxious. Nursing Assessment: Physical Exam * Jaziel Urban MD - 09/30/2022 2:30 PM EST TITLE: NEURO-ONCOLOGY CLINIC FOLLOW UP VISIT REASON FOR FOLLOW UP VISIT: Astrocytoma, WHO Grade II, MGMT methylated, IDH1 mutated, 1p 19 q intact TREATMENT HISTORY: Surgery: 10-04-2014; craniotomy for resection of a right parietal tumor; the pathology was consistent with astrocytoma, WHO Grade II, MGMT methylated, IDH1 mutated, 1p 19 q intact Surgery: 09-01-2016; redo right parietal craniotomy for resection of residual brain mass; performedby Cherie Santamaria MD & Yoly Mina MD, PhD, [facility]; the pathology was consistent with reactive changes and no definite tumor Mr Gallardo is a 36-year-old male wwho has a history of surgery for a brain tumor on September 04, 2014. He had resection of a right parietal mass at the [facility] nd the pathology was consistent with astrocytoma, WHO Grade II. The patient was noted to have some imaging changes in 2016 and a recommendation to undergo treatment with radiation therapy followed by procarbazine, lomustine and vincristine was made. He came to the [facility] for 2nd opinion.His case was discussed at tumor board. Recommendation for repeat surgery was made. The reasons were twofold: It was felt that another debulking operation would result in a low risk situation and possibly allow for another period of observation. Secondly, based on the imaging appearance, there was discussion about the changes possibly representing postoperative gliosis. A repeat surgery was performed on September 01, 2016. The pathology showed reactive changes. The patient was advised to go again on clinical and imaging surveillance. The patient was seen for follow-up on June 05, 2018. He reported some neck pain starting about 2 weeks prior to the appointment without radiation to the upper extremities. 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 A brain MRI was performed on 06-05-2018 and the following report was noted: Stable postsurgical changes of right parietal brain tumor resection. Surrounding FLAIR signal abnormality is stable from 12/13/2017, though is again noted to have increased compared to 12/13/2016. No new or progressive abnormality. 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 The patient was provided with a follow-up appointment on October 19, 2018. He would have a follow-up MRI on the same date. He was aware that he needed to present to the emergency department with any new acute symptoms such as headache or seizures. He was also advised that if the neck pain did not resolve and especially if it worsened he would let us know so that we could request imaging of the neck with his next visit. We also discussed potentially referring the [facility] to [facility]. The patient and his were agreeable with this plan. The patient was seen in the Neuro-Oncology Clinic on October 19, 2018 and was noted to be asymptomatic. A brain MRI was performed on 10-19-2018 and appeared stable to my review. He was to return to Clinic on 02-22-2019 and a brain MRI would be performed with return visit. The patient was also advised to continue levetiracetam 1000 mg twice a day. The patient returned to clinic on 04-30-2019 for a follow-up visit. A complete review of systems including a detailed neurologic review was negative for new symptoms. The patient was working full-time without problems. A brain MRI was performed on April 30, 2019. I reviewed this study and noted the following report: Stable, postoperative changes in the right parietal lobe at the site of prior tumor resection. No evidence of local tumor recurrence. 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 A return to clinic appointment was be set for September 03, 2019 with a brain MRI planned to be performed on the date of this visit. He was on levetiracetam 1000 mg 2 times daily and was encouraged to continue this medication indefinitely. The patient was called on April 17, 2020, for a video follow-up visit. He was accompanied by his . Mrs Gallardo reported that they could not make the visit planned for August 2019 due to the fact that the patient lost his insurance. He still had not re-established payor coverage and was essentially paying out of pocket at this point. He denied any new neurologic complaints. He denied seizure activity, significant headaches or other problems. He was working full- time on his [employer] business. A brain MRI was performed on April 09, 2020. I reviewed this study and noted the following report: Postoperative changes following previous surgical resection in the right parietal lobe. Nonenhancing FLAIR signal around the resection site is stable since the most recent MRI but has progressed slightly since older exams from 2018. There is a tiny linear focus of enhancement along the medial resection margin which appears new since previous MRIs. Continued close follow-up recommended . We discussed a close follow-up MRI to assess the small linear focus of enhancement along the medial resection margin. This change was slight and of uncertain significance. However, the differential diagnosisincluded early progressive disease. The next scan was to be performed in approximately 6 weeks. Thepatient was to continue on his anticonvulsant with no changes. He was not experiencing any side effects from this medication and he had not had any breakthrough seizure activity. Interval history: The patient returns to Clinic today September 30, 2022 for a follow up visit. He is asymptomatic andaccompanied by his and cousin. A brain MRI was completed in association with today's visit andis discussed below. REVIEW OF SYSTEMS: A complete review of systems was otherwise negative PHYSICAL EXAMINATION: KARNOFSKY PERFORMANCE STATUS: 100 General examination: Young male who does not appear to be in any acute distress. Vitals: 09/30/22 1307 BP: 135/81 Pulse: 79 Resp: 16 Temp: 98.5 F (36.9 C) Psychiatric evaluation: mood and affect are appropriate Head & Neck: the head is atraumatic and the neck is supple Musculoskeletal: no joint swelling or deformity Neurologically, the patient is conscious, alert and oriented. Vision is normal. No focal cranial nerve or motor deficits are seen. No cerebellar or meningeal signs are noted Skin: no rashes or lesions are noted NEUROIMAGING: A brain MRI with perfusion was completed on 09-30-2022. I reviewed the study and noted the following report: 1. Redemonstration of postsurgical changes involving the right parietal region. Small subtle area of contrast enhancement along the anteromedial margin of the surgical defect is unchanged. Hyperintense FLAIR abnormality involving the right parietal parenchyma adjacent to the surgical defect is unchanged compared to the most recent study although mildly increased when compared to more remote studies as detailed above. 2. No acute intracranial process noted. No evidence of an acute infarct. LABORATORY: None DIAGNOSIS: Astrocytoma, MEDICAL ECONOMICS CONSULTANT WHO grade 2: The patient is stable clinically and stable on imaging. Seizure disorder: currently stable MANAGEMENT: The patient will repeat imaging in early January 2022 and asked for Tele Health visit after the MRI on that date. He will continue anticonvulsant therapy. The total visit time was 20 minutes on the date of service. Jaziel Urban MD Ethics Manager in Neurology Division of Neuro-oncology [address] [facility] [address] [place] [address] documented in this encounterOSReg[facility]12-15-2022 Instructions* Patient Instructions* Emmanuelle Darnell RN - 09/30/2022 2:30 PM EST Your Neuro-Oncology Team [facility] [address] [place] [address] Dr. Jaziel Urban M.D. Nurse Practitioner: Nithin Diaz CNP Primary Nurse: RADHA Anderson, salesperson shoes Office [employer] Sales Specialist Neuro-Oncology Clinic Hours: Tuesday-Tuesday 8:30 - 4:30 Neuro-Oncology Office Information Regular business hours are Tuesday through Tuesday 8:30 a.m. to 4:30 p.m. Please call [phone] for information related to clinic appointments, scheduled tests, or for general office related questions or concerns. Messages for the physicians, nurses and other team members can be taken at this phone number and will be routed as appropriate. Emergency assistance is available after hours by calling the office at [phone] and the answering service will reach your doctor or the physician component design engineer. Please allow at least 48 hours for Prescription refill transactions. Please allow 10-14 business days for completion of FMLA and other disability paperwork. We will mail the completed paperwork to you or you may pick it up at the desk. It is your responsibility to return the FMLA or disability paperwork to your employer. If you need to mail a CD or paperwork to the office please mail to : NEURO-ONCOLOGY DEPARTMENT [address] [place] [address] Patient education videos are available on The [employer] website. These videos may help you to better understand your cancer or cancer treatments. The videos also give tips on how to care for yourself to help you feel your best. Here is the link to watch these videos: [email or web address]. [employer] Presents Brain Tumor Support Group Facilitators: NEIL Auguste and VALERI Razo LISW-S Next Meeting: Every Third Tuesday of the month 3:00 pm- 4:00 pm. This event is now virtual and can be accessed through [facility]. Please visit [email or web address] to register or call [employer] at [phone] for more information. The Brain Tumor support group is available for anyone diagnosed with a brain tumor and their support person. This is an opportunity for those impacted by a brain tumor to offer support to one anotherby sharing their experiences and learning more about life after diagnosis. documented in this encounterWhite HospitalEvaluation note* Diagnosis Oligoastrocytoma, WHO grade 2 Malignant neoplasm of brain, unspecified site documented in this encounter [facility]* Diagnosis Right parietal, oligoastrocytoma, WHO grade 2. MGMT methylated; IDH1 mutation; 1p/19q intact; Malignant neoplasm of brain, unspecified site documented in this encounter [facility]* Diagnosis Oligoastrocytoma, WHO grade 2- Primary Malignant neoplasm of brain, unspecified site documented in this encounter [facility]* Diagnosis Oligoastrocytoma, WHO grade 2- Primary Malignant neoplasm of brain, unspecified site documented in this encounter [facility]* Diagnosis Preop exam for internal medicine Other specified pre-operative examination Right parietal, oligoastrocytoma, WHO grade 2. MGMT methylated; IDH1 mutation; 1p/19q intact; Malignant neoplasm of brain, unspecified site S/P craniotomy Other postprocedural status Congenital nystagmus Brain tumor Neoplasm of unspecified nature of brain [facility] Preop exam for internal medicine- Primary Other specified pre-operative examination Right parietal, oligoastrocytoma, WHO grade 2. MGMT methylated; IDH1 mutation; 1p/19q intact; Malignant neoplasm of brain, unspecified site S/P craniotomy Other postprocedural status Congenital nystagmus Preop exam for internal medicine Other specified pre-operative examination Right parietal, oligoastrocytoma, WHO grade 2. MGMT methylated; IDH1 mutation; 1p/19q intact; Malignant neoplasm of brain, unspecified site S/P craniotomy Other postprocedural status Congenital nystagmus Brain tumor Neoplasm of unspecified nature of brain [facility] Diagnosis Encounter for postoperative care- Primary Brain tumor Neoplasm of unspecified nature of brain Status post craniotomy Other postprocedural status Right parietal, oligoastrocytoma, WHO grade 2. MGMT methylated; IDH1 mutation; 1p/19q intact; Malignant neoplasm of brain, unspecified site [facility] Consultation (Routine) - New Request Specialty Diagnoses / Procedures Referred By Contac t Referred To Contact Radiation Oncology Diagnoses Brain tumor Status post craniotomy Oligoastrocytoma, WHO grade 2 Joe Capone, PLUMBER GASFITTER-METER SUPERVISOR [address] [place] [phone] Referral ID Status Reason Start Date Expiration Date V isits Requested Visits Authorized [id number] New Request 10/26/2023 11/19/2024 1 1 * Unlisted Procedure Code (Routine) - New Request Specialty Diagnoses / Procedures Referred By Contac t Referred To Contact Diagnoses Brain tumor Procedures PLATELET MONITORING PER PROTOCOL Cherie Santamaria MD [address] [place], [place] [id number] Referral ID Status Reason Start Date Expiration Date V isits Requested Visits Authorized [id number] New Request 10/25/2023 11/18/2024 1 1 * Unlisted Procedure Code (Routine) - New Request Specialty Diagnoses / Procedures Referred By Contac t Referred To Contact Diagnoses Brain tumor Procedures DVT/VTE RISK ASSESSMENT Cherie Santamaria MD [address] [place] [id number] Referral ID Status Reason Start Date Expiration Date V isits Requested Visits Authorized [id number] New Request 10/25/2023 11/18/2024 1 1 * Radiology (Routine) - New Request Specialty Diagnoses / Procedures Referred By Contac t Referred To Contact Procedures US IMAGING Cherie Durand MD [address] [place] [address] Referral ID Status Reason Start Date Expiration Date V isits Requested Visits Authorized [id number] New Request 10/25/2023 11/18/2024 1 1 [facility] Family History No Family History Records FoundNo Family History Records FoundNo Family History Records Found Advance Directives No Advanced Directives Records FoundLatest Code Status on File Code Status Date Activated Date Inactivated Comments Full Code 09/01/2016 3:18 PM 09/03/2016 4:12 PM Latest Code Status on File Code Status Date Activated Date Inactivated Comments Full Code 09/01/2016 3:18 PM 09/03/2016 4:12 PM Latest Code Status on File Code Status Date Activated Date Inactivated Comments Full Code 09/01/2016 3:18 PM 09/03/2016 4:12 PM Latest Code Status on File Code Status Date Activated Date Inactivated Comments Full Code 10/25/2023 3:59 PM Code Status History Code Status Date Activated Date Inactivated Comments Full Code 10/25/2023 6:22 AM 10/25/2023 11:44 AM Full Code 09/01/2016 3:18 PM 09/03/2016 4:12 PM Reason for Referral Specialty Diagnoses / Procedures Referred By Contac t Referred To Contact Diagnoses Oligoastrocytoma, WHO grade 2 Procedures MRI BRAIN WITH PERFUSION [place] MRI BRAIN COMBO Jaziel Urban MD [address] [place] [address] Referral ID Status Reason Start Date Expiration Date V isits Requested Visits Authorized [id number] New Request 12/03/2021 12/28/2022 1 1 Specialty Diagnoses / Procedures Referred By Sunita t Referred To Contact Diagnoses Oligoastrocytoma, WHO grade 2 Procedures MRI BRAIN WITH PERFUSION [place] MRI BRAIN COMBO Jaziel Urban MD [address] [place] [address] Referral ID Status Reason Start Date Expiration Date Visits Re quested Visits Authorized [id number] Closed 01/07/2022 02/01/2023 1 1 Specialty Diagnoses / Procedures Referred By Contac t Referred To Contact Diagnoses Oligoastrocytoma, WHO grade 2 Procedures MRI BRAIN WITH PERFUSION [place] MRI BRAIN COMBO Nithin Diaz APRN-[place] [address] [place] [phone] Referral ID Status Reason Start Date Expiration Date V isits Requested Visits Authorized [id number] New Request 09/30/2022 10/25/2023 1 1 Referral ID Status Reason Start Date Expiration Date V isits Requested Visits Authorized [id number] New Request 03/31/2023 04/24/2024 1 1 Specialty Diagnoses / Procedures Referred By Contac t Referred To Contact Diagnoses Preop exam for internal medicine Oligoastrocytoma, WHO grade 2 S/P craniotomy Congenital nystagmus Procedures PREPARE TO TRANSFUSE OR RED BLOOD CELLS Eleanor Mueller, [address] [place] [address] Referral ID Status Reason Start Date Expiration Date V isits Requested Visits Authorized [id number] New Request 10/13/2023 11/06/2024 1 1 Additional Source Comments (unrecognized sect ion and content) No Status Records FoundNo Status Records FoundNo Status Records Found INFORMATION SOURCE (unrecogn ized section and content) DATE CREATED AUTHOR AUTHOR'S ORGANIZ ATION 02/01/2019 [facility] DATE CREATED AUTHOR AUTHOR'S ORGANIZ ATION 11/12/2023 [facility] Reason for Visit (unrecogniz ed section and content) Referral ID Status Reason Start Date Expiration Date V isits Requested Visits Authorized [id number] New Request 12/03/2021 12/28/2022 1 1 Specialty Diagnoses / Procedures Referred By Contac t Referred To Contact Diagnoses Oligoastrocytoma, WHO grade 2 Procedures MRI BRAIN WITH PERFUSION [place] MRI BRAIN Jaziel Darby MD [address] [place] [address] Referral ID Status Reason Start Date Expiration Date Visits Re quested Visits Authorized [id number] Closed 01/07/2022 02/01/2023 1 1 Reason Comments Follow-up Specialty Diagnoses / Procedures Referred By Contac t Referred To Contact Diagnoses Oligoastrocytoma, WHO grade 2 Procedures MRI BRAIN WITH PERFUSION [place] MRI BRAIN ALVARADOO Nithin Diaz APRN-[place] [address] 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 [address] [place] [phone] Referral ID Status Reason Start Date Expiration Date V isits Requested Visits Authorized [id number] New Request 09/22/2023 10/16/2024 1 1 Specialty Diagnoses / Procedures Referred By Sunita aguillon Referred To Contact Diagnoses Brain tumor Brain tumor [D49.6] Procedures AZ EXCISION CRANIOPHARYNGIOMA [place] MRI BRAIN W/O & W/ DYE [place] IONM 1 ON 1 IN OR W/ATTENDANCE EACH 15 MINUTES EXCISION BRAIN TUMOR BY CRANIOTOMY EVALUATION MRI BRAIN INTRAOPERATIVE MONITORING NEUROPHYSIOLOGY INTRAOPERATIVE ADD-ON PX Cherie Santamaria MD [address] [place] [phone] [facility] [address] [place] [phone] Referral ID Status Reason Start Date Expiration Date Visits Re quested Visits Authorized [id number] 1 1 Care Teams (unrecognized sec tion and content) Circular Head Saw Operator Relationship Specialty Start Date End Date Nithin Davenport DO [address] [phone] PCP - General Internal Medicine 04/30/19 Cherie Santamaria MD [address] [place] [phone] Neurosurgeon Neurological Surgery 08/18/22 Circular Head Saw Operator Relationship Specialty Start Date End Date Nithin Davenport DO [address] [place] [address] PCP - General Internal Medicine 04/30/19 Cherie Santamaria MD [address] [place] [address] Neurosurgeon Neurological Surgery 08/18/22 Circular Head Saw Operator Relationship Specialty Start Date End Date Ethel Nithin, DO [address] [place] [address] PCP - General Internal Medicine 04/30/19 Cherie Santamaria MD [address] [place] [address] Neurosurgeon Neurological Surgery 08/18/22 Circular Head Saw Operator Relationship Specialty Start Date End Date Ethel Nithin, DO [address] [place] [address] PCP - General Internal Medicine 04/30/19 Cherie Santamaria MD [address] [place] [address] Neurosurgeon Neurological Surgery 08/18/22 Circular Head Saw Operator Relationship Specialty Start Date End Date Nithin Davenport DO [address] [facility] [address] PCP - General Internal Medicine 04/30/19 Cherie Santamaria MD [address] [place] [address] Neurosurgeon Neurological Surgery 08/18/22 Circular Head Saw Operator Relationship Specialty Start Date End Date Nithin Davenport DO [address] [place] [address] PCP - General Internal Medicine 04/30/19 Cherie Santamaria MD [address] [place] [address] Neurosurgeon Neurological Surgery 08/18/22 Circular Head Saw Operator Relationship Specialty Start Date End Date Nithin Davenport DO [address] [facility] [place] [address] PCP - General Internal Medicine 04/30/19 Cherie Santamaria MD [address] [place] [address] Neurosurgeon Neurological Surgery 08/18/22 Jaziel Urban MD [address] [place] [address] Neurooncologist Neurooncology 10/26/23 Scheduled Active and Recently Administ ered Medications (unrecognized section and content) Continuous Medication Order 10/25/2023 10/26/2023 10/27/2023 remifentanil (ULTIVA) 1 mg in 0.9% sodium chloride 25 mL premade syringe (CANCELED) 0.1-0.2 mcg/kg/min 91.6 kg Order-specific weight (13.74-27.48 mL/hr, rounded to 13.7-27.5 mL/hr), Intravenous, CONTINUOUS, Starting on Tue10/25/23 at 0630, Until Tue10/25/23 at 1136, concentration = 40 mcg/ml, Intra-op/Intra-Proc 0723 ($$New Bag$$ - Provider: Tayler Naidu DO)0916 (Stopped - Provider: Tayler Naidu DO)0947 ($$New Bag$$ - Provider: Tayler Naidu DO)1038 (Rate/Dose Change - Provider: Tayler Naidu DO)1104 (Stopped - Provider: Tayler Naidu DO) sodium chloride 0.9% 1,000 ml with potassium chloride 20 mEq premix IV solution (CANCELED) Intravenous, at 75 mL/hr, CONTINUOUS, Starting on Tue10/25/23 at 1145, Until Tue10/26/23 at 0801, Post-op/Post-Proc 1224 ($$New Bag$$ - Provider: Inna Roca RN)1809 (Paused - Provider: Rico Cardoza RN)1812 (Restarted - Provider: Rico Cardoza RN)2153 (Rate/Dose Verify - Provider: Rico Cardoza RN) 0052 (Rate/Dose Verify - Provider: Rico Cardoza RN)0130 (Rate/Dose Verify - Provider: Rico Cardoza RN)0133 ($$New Bag$$ - Provider: Rico Cardoza RN)0517 (Rate/Dose Verify - Provider: Rico Cardoza RN)0617 (Rate/Dose Verify - Provider: Rico Cardoza RN)1226 (Stopped - Provider: Sharlene Grace RN) Sodium chloride 0.9% IV solution (CANCELED) Intravenous, at 50 mL/hr, CONTINUOUS, Starting on Tue10/25/23 at 0630, Until Tue10/25/23 at 1136, Pre-op/Pre-Proc 0704 ($$New Bag$$ - Provider: Tayler Naidu DO)0752 (Anesthesia Volume Adjustment - Provider: Tayler Naidu DO)0916 (Stopped - Provider: Tayler Naidu DO)0945 (Restarted - Provider: Tayler Naidu DO)1028 (Anesthesia Volume Adjustment - Provider: Tayler Naidu DO) PRN Medication Order 10/25/2023 10/26/2023 10/27/2023 Acetaminophen (TYLENOL) tablet 650 mg 650 mg, Oral, EVERY 4 HOURS NEEDED, Starting on Tue10/25/23 at 1144, Until Shabana 10/27/23 at 1852, Mild Pain, Maximum dose of acetaminophen is 4000 mg from all sources in 24 hours., Post-op/Post-Proc 1548 (Given - Provider: Inna Roca RN)2108 (Given - Provider: Rico Cardoza RN) 0552 (Given - Provider: Rico Cardoza RN)0958 (Given - Provider: Kiel Sal RN)1759 (Given - Provider: Chandni Hernandez RN) 0017 (Given - Provider: Quin Conklin, RN)0414 (Given - Provider: Quin Conklin, RN)1315 (Given - Provider: Iris Cheatham, VIANEY) bacitracin ointment (CANCELED) NEEDED, Starting on Tue10/25/23 at 0816, Until Tue10/25/23 at 1135, Intra-op/Intra-Proc 0816 (Given - Provider: Cherie Santamaria MD - Comment: Used to coat MRI safe pins used for positioning pt head) ceFAZolin (ANCEF) 2 g in dextrose 100 mL premix IVPB (COMPLETED) 2 g, Intravenous, Administer over 30 Minutes, FILER METAL PATTERNS TO PROCEDURE, 1 dose, Starting on Tue10/25/23 at 0622, Until Discontinued, Other, surgical prophylaxis, Initiate antibiotic administration 30-60 minutes prior to surgical incision and complete administration prior to surgical incision., Pre-op/Pre-Proc 0740 (Given - Provider: Tayler Naidu DO) hydrALAZINE (APRESOLINE) injection 10 mg(Linked Group 6) 10 mg, Intravenous, EVERY 1 HOUR NEEDED, Starting on Tue10/25/23 at 1144, Until Shabana 10/27/23 at 1852, SBP > 160 mmHg with HR <60 bpm, Use as initial dose. Higher dose may be administered if lower dose was previously documented as ineffective 10 minutes after administration and did not result in adverse effects (HR>90), Post-op/Post-Proc hydrALAZINE (APRESOLINE) injection 20 mg(Linked Group 6) 20 mg, Intravenous, EVERY 1 HOUR NEEDED, Starting on Tue10/25/23 at 1144, Until Shabana 10/27/23 at 1852, SBP > 160 mmHg with HR <60 bpm, Higher dose may be administered if lower dose was previously documented as ineffective 10 minutes after administration and did not result in adverse effects (HR>90). Decrease back to lower dose if patient has adverse effects, or no PRN used in previous 3 hours, Post-op/Post-Proc HYDROmorphone (DILAUDID) injection 0.5 mg (CANCELED)(Linked Group 7) 0.5 mg, Intravenous, EVERY 3 HOURS NEEDED, Starting on Tue10/25/23 at 1144, Until Tue10/26/23 at 0801, Severe Pain, Use as initial dose. Higher dose may be administered if lower dose was previously documented as ineffective and did not result in adverse effects (RR<10, decrease in level of consciousness)., Post-op/Post-Proc 1159 (Given - Provider: Patrick Lopez RN)1614 (Given - Provider: Inna Roca, RN)1950 (See Alternative - Provider: Rico Cardoza, RN) HYDROmorphone (DILAUDID) injection 1 mg (CANCELED)(Linked Group 7) 1 mg, Intravenous, EVERY 3 HOURS NEEDED, Starting on Tu10/25/23 at 1144, Until 10/26/23 at 0801, Severe Pain, Higher dose may be administered if lower dose was previously documented as ineffective and did not result in adverse effects (RR<10, decrease in level of consciousness). Decrease back to lower dose if patient has adverse effects, or no PRN used in previous 12 hours., Post-op/Post-Proc 115 (See Alternative - Provider: Patrick Lopez RN)1614 (See Alternative - Provider: Inna Roca, VIANEY)1950 (Given - Provider: Rico Cardoza, VIANEY) Labetalol (NORMODYNE) injection 10 mg(Linked Group 8) 10 mg, Intravenous, EVERY 1 HOUR NEEDED, Starting on Tue10/25/23 at 1144, Until Shabana 10/27/23 at 1852, SBP > 160 mmHg with HR >60 bpm, Use as initial dose. Higher dose may be administered if lower dose was previously documented as ineffective 10 minutes after administration and did not result in adverse effects (HR<60) For vials: labetalol should be treated as a SINGLE USE VIAL. Discard remaining contents after one use., Post-op/Post-Proc 1314 (Given - Provider: Inna Roca, VIANEY) Labetalol (NORMODYNE) injection 20 mg(Linked Group 8) 20 mg, Intravenous, EVERY 1 HOUR NEEDED, Starting on Tue10/25/23 at 1144, Until Shabana 10/27/23 at 1852, SBP > 160 mmHg with HR >60 bpm, Higher dose may be administered if lower dose was previously documented as ineffective 10 minutes after administration and did not result in adverse effects (HR<60). Decrease back to lower dose if patient has adverse effects, or no PRN used in previous 3 hours For vials: labetalol should be treated as a SINGLE USE VIAL. Discard remaining contents after one use., Post-op/Post-Proc 1314 (See Alternative - Provider: Inna Roca RN) Magnesium sulfate 4 g in sterile water 50 ml premix IVPB (CANCELED) 4 g, Intravenous, Administer over 4 Hours, ADMINISTER DIRECTED, Starting on Tue10/25/23 at 1149, Until Tue10/26/23 at 0801, Other, ICU Magnesium Replacement Parameters, Administer 4 grams once if magnesium level is less than or equal to 2.0 mg/dL. If replacing potassium also, replete magnesium prior to KCl administration. EXCLUDE less than 45 kg, SCr greater than or equal to 2 mg/dL, CrCl less than 30 ml/min, ESRD, and renal replacement therapy 0328 ($$New Bag$$ - Provider: Rico Cardoza RN)0338 (Paused - Provider: Rico Cardoza RN)0338 (Restarted - Provider: Rico Cardoza RN)0517 (Rate/Dose Verify - Provider: Rico Cardoza RN)0617 (Rate/Dose Verify - Provider: Rico Cardoza RN)0644 (Stopped - Provider: Kiel Sal RN) Ondansetron (ZOFRAN) tablet 4 mg(Linked Group 9) 4 mg, Oral, EVERY 4 HOURS NEEDED, Starting on Tue10/25/23 at 1144, Until Shabana 10/27/23 at 1852, Nausea / Vomiting, Post-op/Post-Proc 1315 (Given - Provider: Iris Cheatham RN) Ondansetron 4mg/2ml (ZOFRAN) injection 4 mg(Linked Group 9) 4 mg, Intravenous, EVERY 4 HOURS NEEDED, Starting on Tue10/25/23 at 1144, Until Shabana 10/27/23 at 1852, Nausea / Vomiting, Post-op/Post-Proc 1315 (See Alternative - Provider: Iris Cheatham, VIANEY) oxyCODONE (ROXICODONE) tablet 5 mg(Linked Group 10) 5 mg, Oral, EVERY 4 HOURS NEEDED, Starting on Tue10/25/23 at 1147, Until Shabana 10/27/23 at 1852, Moderate Pain, Severe Pain, Use as initial dose. Higher dose may be administered if lower dose was previously documented as ineffective and did not result in adverse effects (RR<10, negative change in RASS of 2 or more). 1313 (See Alternative - Provider: Inna Roca RN)1811 (See Alternative - Provider: Inna Roca RN) 0138 (Given - Provider: Rico Cardoza RN)0649 (Given - Provider: Rico Cardoza RN)1123 (Given - Provider: Carol Aguirre RN)1530 (See Alternative - Provider: Chandni Hernandez, VIANEY) 0017 (Given - Provider: Quin Conklin RN)0413 (Given - Provider: Quin Conklin RN)0905 (Given - Provider: Iris Cheatham RN)1316 (Given - Provider: Iris Cheatham RN) oxyCODONE HCl (ROXICODONE) tablet 10 mg(Linked Group 10) 10 mg, Oral, EVERY 4 HOURS NEEDED, Starting on Tue10/25/23 at 1147, Until Shabana 10/27/23 at 1852, Moderate Pain, Severe Pain, Higher dose may be administered if lower dose was previously documented as ineffective and did not result in adverse effects (RR<10, negative change in RASS of 2 or more). Decrease back to lower dose if patient has adverse effects or no PRN use in previous 12 hours. Hold for sedation. 1313 (Given - Provider: Inna Roca RN)181 (Given - Provider: Inna Roca RN) 0138 (See Alternative - Provider: Rico Cardoza RN)0649 (See Alternative - Provider: Rico Cardoza RN)1123 (See Alternative - Provider: Carol Aguirre, VIANEY)1530 (Given - Provider: Chandni Hernandez, VIANEY) 0017 (See Alternative - Provider: Quin Conklin RN)0413 (See Alternative - Provider: Quin Conklin RN)0905 (See Alternative - Provider: Iris Cheatham, VIANEY)1316 (See Alternative - Provider: Iris Cheatham, VIANEY) Potassium chloride (K-DUR) tablet ER 20 mEq (CANCELED)(Linked Group 11) 20 mEq, Oral, ADMINISTER DIRECTED, Starting on Tue10/25/23 at 1149, Until Tue10/26/23 at 0801, See admin instructions, ICU Potassium Replacement Parameters, Swallow tablets whole; do not crush, chew, or suck on tablet. Tablet may also be broken in half and each half swallowed separately Administer 40 mEq if potassium level 3.6-3.9 mmol/L; administer 80 mEq if potassium level is less than or equal to 3.5 mmol/L If replacing magnesium also, replete Mg prior to KCl administration. EXCLUDE less than 45 kg, SCr greater than or equal to 2 mg/dL, CrCl less than 30 ml/min, ESRD, and renal replacement therapy. If patient receiving tube feeds, diet or is receiving other oral medications, enteral route preferred unless serum potassium is less than 3.0 mmol/L, then use IV formulation. If potassium level is less than or equal to 3.0 mmol/L, recheck potassium 4 hours after replacement. 0325 (Given - Provider: Rico Cardoza RN) thrombin topical solution (CANCELED) NEEDED, Starting on Tue10/25/23 at 0817, Until Tue10/25/23 at 1135, Intra-op/Intra-Proc 0817 (Given - Provider: Cherie Santamaria MD - Comment: Mixed with 100mL tissusol to soak neuro sponges used throughout procedure) tissusol irrigation solution (CANCELED) NEEDED, Starting on Tue10/25/23 at 0930, Until Tue10/25/23 at 1135, Intra-op/Intra-Proc 0930 (Given - Provider: Cherie Santamaria MD) Linked Groups Order Group 1: dexAMETHasone (DECADRON) injection 4 mg (CANCELED)Jump to med 4 mg, Intravenous, EVERY 8 HOURS, First dose on Tue10/25/23 at 1400, Until Discontinued, Post-op/Post-Proc Or dexAMETHasone (DECADRON) tablet 4 mg (CANCELED)Jump to med 4 mg, Oral, EVERY 8 HOURS, First dose on Tue10/25/23 at 1400, Until Discontinued, Post-op/Post-Proc Group 2: dexAMETHasone (DECADRON) tablet 4 mgJump to med 4 mg, Oral, 2 TIMES DAILY WITH BREAKFAST AND LUNCH, 10 doses, First dose on Tue10/26/23 at 1200, Last dose on Tue10/31/23 at 0800 Followed by dexAMETHasone (DECADRON) tablet 4 mgJump to med 4 mg, Oral, DAILY, 5 doses, First dose on Tue10/31/23 at 1200, Last dose on Tue11/04/23 at 0900 Followed by dexAMETHasone (DECADRON) tablet 2 mgJump to med 2 mg, Oral, DAILY, 4 doses, First dose on Tue11/05/23 at 0900, Last dose on Tue11/08/23 at 0900 Group 3: Docusate (COLACE) capsule 100 mgJump to med 100 mg, Oral, 2 TIMES DAILY, First dose on Tue10/25/23 at 1700, Until Discontinued, Post-op/Post-Proc Or docusate (COLACE) oral liquid 100 mgJump to med 100 mg, Oral, 2 TIMES DAILY, First dose on Tue10/25/23 at 1700, Until Discontinued, Post-op/Post-Proc Group 4: faMOTIdine (PEPCID) tablet 20 mgJump to med 20 mg, Oral, 2 TIMES DAILY, 29 doses, First dose on Tue10/25/23 at 1700, Last dose on Tue11/08/23 at 1700 Or famotidine (PF) (PEPCID) injection 20 mgJump to med 20 mg, Intravenous, 2 TIMES DAILY, 29 doses, First dose on Tue10/25/23 at 1700, Last dose on Tue11/08/23 at 1700
Administer undiluted by slow IV push at a rate not to exceed 10mg/min.
Group 5: levETIRAcetam (KEPPRA) injection 1,000 mgJump to med 1,000 mg, Intravenous, EVERY 12 HOURS, First dose (after last modification) on Tue10/25/23 at 2100, Until Discontinued
Administer by IV push at a rate not to exceed 500 mg/min.
Post-op/Post-Proc Or levETIRAcetam (KEPPRA) tablet 1,000 mgJump to med 1,000 mg, Oral, EVERY 12 HOURS, First dose (after last modification) on Tue10/25/23 at 2100, Until Discontinued, Post-op/Post-Proc Or levETIRAcetam (KEPPRA) oral solution 1,000 mgJump to med 1,000 mg, Per NG tube, EVERY 12 HOURS, First dose (after last modification) on Tue10/25/23 at 2100, Until Discontinued, Post-op/Post-Proc Group 6: hydrALAZINE (APRESOLINE) injection 10 mgJump to med 10 mg, Intravenous, EVERY 1 HOUR NEEDED, Starting on Tue10/25/23 at 1144, Until Shabana 10/27/23 at 1852, SBP > 160 mmHg with HR <60 bpm
Use as initial dose. Higher dose may be administered if lower dose was previously documented as ineffective 10 minutes after administration and did not result in adverse effects (HR>90)
Post-op/Post-Proc Or hydrALAZINE (APRESOLINE) injection 20 mgJump to med 20 mg, Intravenous, EVERY 1 HOUR NEEDED, Starting on Tue10/25/23 at 1144, Until Tue10/27/23 at 1852, SBP > 160 mmHg with HR <60 bpm
Higher dose may be administered if lower dose was previously documented as ineffective 10 minutes after administration and did not result in adverse effects (HR>90). Decrease back to lower dose if patient has adverse effects, or no PRN used in previous 3 hours
Post-op/Post-Proc Group 7: HYDROmorphone (DILAUDID) injection 0.5 mg (CANCELED)Jump to med 0.5 mg, Intravenous, EVERY 3 HOURS NEEDED, Starting on Tue10/25/23 at 1144, Until Tue10/26/23 at 0801, Severe Pain
Use as initial dose. Higher dose may be administered if lower dose was previously documented as ineffective and did not result in adverse effects (RR<10, decrease in level of consciousness).
Post-op/Post-Proc Or HYDROmorphone (DILAUDID) injection 1 mg (CANCELED)Jump to med 1 mg, Intravenous, EVERY 3 HOURS NEEDED, Starting on Tue10/25/23 at 1144, Until Tue10/26/23 at 0801, Severe Pain
Higher dose may be administered if lower dose was previously documented as ineffective and did not result in adverse effects (RR<10, decrease in level of consciousness). Decrease back to lower dose if patient has adverse effects, or no PRN used in previous 12 hours.
Post-op/Post-Proc Group 8: Labetalol (NORMODYNE) injection 10 mgJump to med 10 mg, Intravenous, EVERY 1 HOUR NEEDED, Starting on Tue10/25/23 at 1144, Until Shabana 10/27/23 at 1852, SBP > 160 mmHg with HR >60 bpm
Use as initial dose. Higher dose may be administered if lower dose was previously documented as ineffective 10 minutes after administration and did not result in adverse effects (HR<60) For vials: labetalol should be treated as a SINGLE USE VIAL. Discard remaining contents after one use.
Post-op/Post-Proc Or Labetalol (NORMODYNE) injection 20 mgJump to med 20 mg, Intravenous, EVERY 1 HOUR NEEDED, Starting on Tue10/25/23 at 1144, Until Shabana 10/27/23 at 1852, SBP > 160 mmHg with HR >60 bpm
Higher dose may be administered if lower dose was previously documented as ineffective 10 minutes after administration and did not result in adverse effects (HR<60). Decrease back to lower dose if patient has adverse effects, or no PRN used in previous 3 hours For vials: labetalol should be treated as a SINGLE USE VIAL. Discard remaining contents after one use.
Post-op/Post-Proc Group 9: Ondansetron 4mg/2ml (ZOFRAN) injection 4 mgJump to med 4 mg, Intravenous, EVERY 4 HOURS NEEDED, Starting on Tue10/25/23 at 1144, Until Shabana 10/27/23 at 1852, Nausea / Vomiting, Post-op/Post-Proc Or Ondansetron (ZOFRAN) tablet 4 mgJump to med 4 mg, Oral, EVERY 4 HOURS NEEDED, Starting on Tue10/25/23 at 1144, Until Shabana 10/27/23 at 1852, Nausea / Vomiting, Post-op/Post-Proc Group 10: oxyCODONE (ROXICODONE) tablet 5 mgJump to med 5 mg, Oral, EVERY 4 HOURS NEEDED, Starting on Tue10/25/23 at 1147, Until Shabana 10/27/23 at 1852, Moderate Pain, Severe Pain
Use as initial dose. Higher dose may be administered if lower dose was previously documented as ineffective and did not result in adverse effects (RR<10, negative change in RASS of 2 or more).
Or oxyCODONE HCl (ROXICODONE) tablet 10 mgJump to med 10 mg, Oral, EVERY 4 HOURS NEEDED, Starting on Tue10/25/23 at 1147, Until Shabana 10/27/23 at 1852, Moderate Pain, Severe Pain
Higher dose may be administered if lower dose was previously documented as ineffective and did not result in adverse effects (RR<10, negative change in RASS of 2 or more). Decrease back to lower dose if patient has adverse effects or no PRN use in previous 12 hours. Hold for sedation.
Group 11: Potassium chloride 20 mEq in sterile water 50 ml premix IVPB (CANCELED) 20 mEq, Intravenous, Administer over 60 Minutes, ADMINISTER DIRECTED, Starting on Tue10/25/23 at 1149, Until Tue10/26/23 at 0801, Other, ICU Potassium Replacement parameters
FOR CENTRAL LINE: Administer 40 mEq if potassium level 3.6-3.9 mmol/L; administer 80 mEq if potassium level is less than or equal to 3.5 mmol/L. If replacing magnesium also, replete Mg prior to KCl administration. EXCLUDE less than 45 kg, SCr greater than or equal to 2 mg/dL, CrCl less than 30 ml/min, ESRD, and renal replacement therapy. If patient receiving tube feeds, diet or is receiving other oral medications, enteral route preferred unless serum potassium is less than 3.0 mmol/L, then use IV formulation. If potassium level is less than or equal to 3.0 mmol/L, recheck potassium 4 hours after replacement. Extravasation Risk. CENTRAL LINE required. Telemetry required.
Or Potassium chloride (K-DUR) tablet ER 20 mEq (CANCELED)Jump to med 20 mEq, Oral, ADMINISTER DIRECTED, Starting on Tue10/25/23 at 1149, Until 1/10/24 at 0801, See admin instructions, ICU Potassium Replacement Parameters
Swallow tablets whole; do not crush, chew, or suck on tablet. Tablet may also be broken in half and each half swallowed separately Administer 40 mEq if potassium level 3.6-3.9 mmol/L; administer 80 mEq if potassium level is less than or equal to 3.5 mmol/L If replacing magnesium also, replete Mg prior to KCl administration. EXCLUDE less than 45 kg, SCr greater than or equal to 2 mg/dL, CrCl less than 30 ml/min, ESRD, and renal replacement therapy. If patient receiving tube feeds, diet or is receiving other oral medications, enteral route preferred unless serum potassium is less than 3.0 mmol/L, then use IV formulation. If potassium level is less than or equal to 3.0 mmol/L, recheck potassium 4 hours after replacement.
Or potassium bicarbonate (EFFER-K) effervescent tablet 25 mEq (CANCELED) 25 mEq, Per NG tube, ADMINISTER DIRECTED, Starting on Tue10/25/23 at 1149, Until Tue10/26/23 at 0801, Other, icu protocol
Administer 50 mEq if potassium level 3.6-3.9 mmol/L; administer 75 mEq if potassium level is less than or equal to 3.5 mmol/L. If replacing magnesium also, replete Mg prior to potassium administration. EXCLUDE less than 45 kg, SCr greater than or equal to 2 mg/dL, CrCl less than 30 ml/min, ESRD and renal replacement therapy. If patient receiving tube feeds, diet or is receiving other oral medications, enteral route preferred unless serum potassium is less than 3.0 mmol/L, then use IV formulation. If potassium level is less than or equal to 3.0 mmol/L, recheck potassium 4 hours after replacement. Do not swallow whole. Dissolve completely in 3-4 ounces of water or cold juice before drinking. If administering via J tube, dilute in sterile water, wait for tablet to stop fizzing, swirl the solution and draw into a syringe suitable for attaching to the tube. After administration, flush tube with 15-30 ml water.
Or Potassium chloride 10 mEq in sterile water 100 ml premix IVPB (CANCELED) 10 mEq, Intravenous, Administer over 60 Minutes, ADMINISTER DIRECTED, Starting on Tue10/25/23 at 1149, Until Tue10/26/23 at 0801, Other, ICU Potassium Replacement Parameters
FOR PERIPHERAL LINE: Administer 40 mEq if potassium level 3.6-3.9 mmol/L; administer 80 mEq if potassium level is less than or equal to 3.5 mmol/L. If replacing magnesium also, replete Mg prior to KCl administration. EXCLUDE less than 45 kg, SCr greater than or equal to 2 mg/dL, CrCl less than 30 ml/min, ESRD and renal replacement therapy. If patient receiving tube feeds, diet or is receiving other oral medications, enteral route preferred unless serum potassium is less than 3.0 mmol/L, then use IV formulation. If potassium level is less than or equal to 3.0 mmol/L, recheck potassium 4 hours after replacement.
FOR RECORDS PERTAINING TO PATIENTS WHO ARE OR HAVE BEEN ENROLLED IN A CHEMICAL DEPENDENCY/SUBSTANCEABUSE PROGRAM, SOME INFORMATION MAY BE OMITTED. This clinical summary was aggregated from multiple sources. Caution should be exercised in using it in the provision of clinical care. This summary normalizes information from multiple sources, and as a consequence, information in this document may materially change the coding, format and clinical context of patient data. In addition, data may be omitted in some cases. CLINICAL DECISIONS SHOULD BE BASED ON THE PRIMARY CLINICAL RECORDS. [employer] provides no warranty or guarantee of the accuracy or completeness of information in this document.
[2023-11-13] MEDS: Ondansetron 4 MG/2 ML Vial IV (17:23)
[2023-11-13] MEDS: 0.9% Normal Saline (1000mL) 1,000 ML 1000 ML IV (17:24)
[2023-11-13] MEDS: LORazepam 2 MG/ML Syringe 1 MG IV (17:27)
--- NOTE | 2023-11-13 17:30 | ED.RN ---
PT BEGAN SEIZING WHEN THIS RN IN ROOM. ATIVAN GIVEN, ZOFRAN, CONECTED WITH MORPHINE. STOPPED PER DR CATES
[2023-11-13 17:34] LABS: Absolute Neutrophil Count 8.8 X10^3/uL (2.0-7.7); Basophil# 0.14 X10^3/uL; Eosinophil# 0.26 X10^3/uL; Eosinophils% 1.8 % (0-5); Hematocrit 45.5 % (40-54); Hemoglobin 15.7 g/dL (13.0-16.5); Lymphocyte % 24.1 % (19-41); Mean Corp Hgb Conc 34.5 g/dL (32-36); Mean Corpuscular Hgb 30.4 pg (27.0-32.0); Mean Corpuscular Volume 88.2 fL (80-94); Mean Platelet Vol. 9.7 fl (6.2-12.0); Monocyte# 1.43 X10^3/uL; Monocyte% 10.1 % (0-10); NRBC Flagged by Analyzer 0 % (0-5); Neutrophil # 8.76 X10^3/uL (2.7-7.7); Neutrophil % 62.1 % (47-70); Platelet Count 315 K/mm3 (150-450); RBC Distribution Width CV 11.8 % (11.6-14.6); Red Blood Count 5.16 M/mm3 (4.6-6.2); White Blood Count 14.1 K/mm3 (4.4-11.0)
--- NOTE | 2023-11-13 17:35 | RAD_ITS ---
EXAM: XR CHEST, 1 VIEW CLINICAL INDICATION: fever TECHNIQUE: Frontal view of the chest. COMPARISON: 09-29 FINDINGS: LUNGS AND PLEURAL SPACES: Unremarkable. No consolidation or edema. No pneumothorax. No effusion. HEART: Unremarkable. Cardiac silhouette not enlarged. MEDIASTINUM: Central airways and mediastinal contour are unremarkable. BONES/JOINTS: Unremarkable. No acute fracture. SOFT TISSUES: Unremarkable. RAD/Chest 1 View (Portable) IMPRESSION: No radiographic evidence of acute cardiopulmonary disease. Electronically Signed: Mike Chan MD at 17:53 EST ,
[2023-11-13 17:43] LABS: International Normalized Ratio 0.9; Prothrombin Time (Protime)PT. 11.8 SECONDS (11.7-14.9)
[2023-11-13 17:44] LABS: Partial Thromboplast Time 27.6 Seconds (24.1-36.2)
[2023-11-13] MEDS: LORazepam 2 MG/ML Syringe IV ×2 (17:45→17:46)
[2023-11-13] MEDS: levETIRAcetam IV 1,500 MG in 0.9% Normal Saline (100mL Bag) 100 ML 460 MG IV (17:50)
--- NOTE | 2023-11-13 17:52 | NURSING ---
1744 CALLED [facility] , DR MEDLEY TALKING TO LISA DUNCAN FACESHEET CALLED CT TO HAVE RADS AND CT TRANSMITTED
[2023-11-13] MEDS: Meropenem 2 GM in 0.9% Normal Saline (100mL Bag) 100 ML IV (18:01)
[2023-11-13 18:04] LABS: Lactic Acid 1.9 mmol/L (0.4-1.9)
[2023-11-13 18:05] LABS: AST(SGOT) 23 U/L (15-37); Alanine Aminotransfer ALT/SGPT 96 U/L (16-61); Albumin, Serum 4.2 g/dL (3.2-5.0); Alkaline Phosphatase 90 U/L (45-117); Anion Gap 5 (5-15); BUN 14 mg/dL (7-18); BUN/Creat Ratio 14.3 RATIO (10-20); Bilirubin, Direct 0.16 mg/dL (0.00-0.30); Calcium,Total 9.4 mg/dL (8.5-10.1); Chloride 105 mmol/L (98-107); Creatinine, Serum 0.98 mg/dL (0.70-1.30); EST Glomerular Filtration Rate 91 mL/min (>60); Est Glom Filt Rate - Afr Amer 110 mL/min (>60); Estimated Creatinine Clearance 108.89 ml/min; Globulin 3.5 g/dL (2.2-4.2); Glucose 129 mg/dL (74-106); Lipase 57 U/L (13-75); Potassium 3.9 mmol/L (3.5-5.1); Protein, Total 7.7 g/dL (6.4-8.2); Sodium Level 138 mmol/L (136-145)
[2023-11-13] MEDS: Etomidate 20 MG/10 ML Vial IV (18:10)
[2023-11-13] MEDS: Rocuronium Bromide 50 MG/5 ML Vial 64 MG IV (18:10)
[2023-11-13] MEDS: 0.9% Normal Saline (1000mL) 1,000 ML 150 ML IV (18:20)
[2023-11-13] MEDS: Propofol 10MG/Ml 1,000 MG/100 ML Bottle 5.59999999999999964 MG CONT INF (18:20)
[2023-11-13] MEDS: Vancomycin HCl 2,000 MG in 0.9% Normal Saline (500mL Bag) 500 ML 250 MG IV (18:20)
--- NOTE | 2023-11-13 18:25 | NURSING ---
DOROTHY MALAVE CALLED. ETA IS ABOUT 1 HR. [facility]YSICAN'S PICKING THEM UP AT [facility] AND BRINGING THEM
[2023-11-13 18:29] LABS: Bacteria 0 SEEN /hpf (None Seen); Mucous, Urine 0 SEEN /hpf (<or=2+); Red Blood Cells-Urine 0 SEEN /hpf (0-5); White Blood Cells 0 SEEN /hpf (0-5)
[2023-11-13 18:30] LABS: Color, Urine Yellow (Yellow); Glucose, Dipstick Normal (Normal); Ketone-Dipstick Negative (Negative); Leukocyte Esterase-Dipstick Negative /ul (Negative); Nitrite-Dipstick Negative (Negative); Occult Blood-Urine Negative /ul (Negative); Protein-Dipstick 15 mg/dl (Negative); Specific Gravity, Urine 1.025 (1.002-1.030); Urine Bilirubin Dipstick Negative (Negative); Urine Clarity Clear (Clear); Urine Urobilinogen Normal (Normal)
--- NOTE | 2023-11-13 18:35 | RAD_ITS ---
STUDY: X-RAY CHEST REASON FOR EXAM: Male, 38 years old. intubation, NG/OG placement TECHNIQUE: XR Chest 1 View COMPARISON: Study done earlier today. FINDINGS: There is no demonstrated pleural abnormality. ET tube is 11 mm above the leda. It should be pulled back by 26 mm. There is an elevated right hemidiaphragm. Normal size heart. Normal mediastinum and ashish. Normal visualized pulmonary arteries. Normal visualized aortic arch and descending thoracic aorta. Normal visualized thoracic spine. Normal visualized ribs, clavicles, and shoulders. There are no acute findings of the upper abdomen. RAD/Chest 1 View (Portable) IMPRESSION: ET tube is 11 mm above the leda. It should be pulled back by 26 mm. Electronically Signed: Mike Chan MD at 18:50 EST ,
[2023-11-13 18:38] LABS: Squamous Epithelial Cells - UA 0-5 SEEN /hpf (0-5)
--- NOTE | 2023-11-13 19:05 | ED.RN ---
DR. MEDLEY AWARE PATIENT IS FIGHTING HIS VENTILATION. PER DR. MEDLEY- DOUBLE THE RATE. RATE INCREASED FROM 20 TO 40 MCG
[2023-11-13] MEDS: fentaNYL drip 100 ML 5 MCG CONT INF (19:20)
[2023-11-13 19:55] LABS: CPK Total, Creatine Kinase 58 U/L (39-308); Triglycerides 341 mg/dL
[2023-11-13] MEDS: Acetaminophen 650 MG Suppository RC (20:12)
[2023-11-13 20:36] LABS: Bedside Glucose 103 mg/dL (74-106)
== END 2023-11-13 20:45 | disposition short-term general hospital (02) ==
PROVIDERS: Emergency Provider Emergency Medicine; PCP Internal Medicine; Visit Provider Emergency Medicine
DX: G40.209 Localization-related (focal) (partial) symptomatic epilepsy and epileptic syndromes with complex partial seizures, not intractable, without status epilepticus (principal); Z87.891 Personal history of nicotine dependence; R19.7 Diarrhea, unspecified; R11.10 Vomiting, unspecified
CPT/HCPCS: G0463; 31500; 31720; 51702; 70450; 71045; 80048; 80076; 81001; 82550; 82962; 83605; 83690; 84478; 85025; 85610; 85730; 87040; 87086; 87631; 93005; 94002; 96365; 96366; 96367; 96368; 96375; 96376; 99252; 99285; J2185; J7030; J7040; A4216; J2405

== ENCOUNTER → 2024-06-15 | Outpatient (CLI) | payer MEDICAID, SELFPAY ==
--- NOTE | 2024-06-15 08:24 | EKG12_ITS ---
Test Reason : MED TOXICITY Blood Pressure : / mmHG Vent. Rate : 072 BPM Atrial Rate : 072 BPM P-R Int : 150 ms QRS Dur : 094 ms QT Int : 380 ms P-R-T Axes : 058 011 032 degrees QTc Int : 416 ms Normal sinus rhythm Increased R/S ratio in V1, consider early transition or posterior infarct Abnormal ECG Confirmed by SERINA MESA ([id number]), assignment desk editor LUIS ANDREA ([id number]) on 06/16/2024 6:06:16 AM Referred By: NITHIN DIAZ Confirmed By:SERINA MESA
== END | disposition home or self-care (01) ==
LOC: PSN 08:24
PROVIDERS: PCP Internal Medicine
DX: C71.9 Malignant neoplasm of brain, unspecified (principal)
CPT/HCPCS: 93005